=== PATIENT | female | born 1965 | race Two or more races ===

== ENCOUNTER → 2022-02-26 | Emergency (ER) | payer MEDICAID, OTHER ==
[~2022-02-26] VITALS: Ht 160 cm; Wt 68.0 kg
[~2022-02-26] MED LIST: ALPR0.5T PO; LORazepam 0.5 MG TAB PO ONE
[2022-02-26 12:41] VITALS: BP 150/73
[2022-02-26 13:14] LABS: Basophils # (auto) 0.1 10 ^3/uL (0-0.2); Basophils % (auto) 0.8 % (0.0-2.0); Eosinophils # (auto) 0 10 ^3/uL (0-0.8); Eosinophils % (auto) 0.1 % (0.0-7.0); Hematocrit 42.8 % (36.0-46.0); Hemoglobin 14.9 g/dL (12.2-16.2); Lymphocytes # (auto) 1.6 10 ^3/uL (0.4-5.4); Lymphocytes % (auto) 13.6 % (10.0-50.0); Mean Corpuscular Hemoglobin 29.7 pg (28.0-32.0); Mean Corpuscular Hgb Conc. 34.7 g/dL (32.0-36.0); Mean Corpuscular Volume 85.6 fL (80.0-100.0); Monocytes # (auto) 0.4 10 ^3/uL (0-1.3); Monocytes % (auto) 3.7 % (0.0-12.0); Neutrophils # (auto) 9.7 10 ^3/uL (1.6-8.6); Neutrophils % (auto) 81.8 % (37.0-80.0); Nucleated Red Blood Cells % 0.2 %; White Blood Cell 11.8 10^3/uL (4.4-10.8)
[2022-02-26 13:43] LABS: Potassium 3.7 mmol/L (3.5-5.1)
[2022-02-26 13:50] LABS: Albumin 4.3 g/dL (3.4-5.0); BUN/Creatinine Ratio 13.6; Bilirubin, Total 0.4 mg/dL (0.2-1.0); Calcium 9.3 mg/dL (8.5-10.1)
[2022-02-26 15:56] LABS: Urine Bacteria NONE SEEN /hpf (None Seen); Urine Blood TRACE /uL (Negative); Urine Specific Gravity 1.018 (1.001-1.035); Urine WBC 1 /hpf (0 - 5)
== END | disposition home or self-care (01) ==
LOC: ER 12:22 → EDBD 12:22
DX: F41.9 Anxiety disorder, unspecified (principal)
CPT/HCPCS: 36415; 71045; 80053; 81001; 84484; 85025; 93005

== ENCOUNTER 2022-07-01 13:21 | Inpatient (IN) | payer MEDICAID ==
[~2022-07-01] VITALS: Ht 152.4 cm; Wt 50.0 kg
[~2022-07-01 13:21] MED LIST changes: -LORazepam 0.5 MG TAB PO ONE
[2022-07-01 14:31] LABS: Basophils # (auto) 0.1 10 ^3/uL (0-0.2); Basophils % (auto) 0.6 % (0.0-2.0); Eosinophils # (auto) 0 10 ^3/uL (0-0.8); Hematocrit 46.6 % (36.0-46.0); Hemoglobin 15.4 g/dL (12.2-16.2); Lymphocytes # (auto) 1.2 10 ^3/uL (0.4-5.4); Lymphocytes % (auto) 6.4 % (10.0-50.0); Mean Corpuscular Hemoglobin 28.8 pg (28.0-32.0); Mean Corpuscular Hgb Conc. 33.1 g/dL (32.0-36.0); Monocytes # (auto) 0.7 10 ^3/uL (0-1.3); Neutrophils # (auto) 16.3 10 ^3/uL (1.6-8.6); Red Blood Cells 5.36 10^6/uL (4.0-5.20); Red Cell Distribution Width 13.6 % (11.8-14.3); White Blood Cell 18.4 10^3/uL (4.4-10.8)
[2022-07-01 14:44] LABS: Albumin 4.5 g/dL (3.4-5.0); BUN/Creatinine Ratio 16.7; Calcium 9.9 mg/dL (8.5-10.1); Potassium 3.7 mmol/L (3.5-5.1)
[2022-07-01 14:46] LABS: Bilirubin, Total 0.6 mg/dL (0.2-1.0); Total Protein 7.9 g/dL (6.4-8.2)
[2022-07-01] MEDS ORDERED: MORPHINE SULFATE 4 MG/ML SYR/VIAL IV ONE (15:15)
[2022-07-01] MEDS ORDERED: SODIUM CHLORIDE 0.9% 1,000 ML IV ONE ×2 (15:15)
[2022-07-01] MEDS ORDERED: PROCHLORPERAZINE EDISYLATE 5 MG/ML 2ML VIAL IV ONE (15:15)
[2022-07-01] MEDS ORDERED: cefTRIAXone 1GM/50ML D5W 50 ML IV ONE (15:30)
[2022-07-01] MEDS ORDERED: LABETALOL HCL 5 MG/ML 4ML SYRINGE IV ONE (15:30)
[2022-07-01 18:22] LABS: Alcohol, Urine < 3.0 mg/dL (0-10); Amphetamine Screen, Urine NEGATIVE (NEGATIVE); Barbiturate Scree,Urine NEGATIVE (NEGATIVE); Benzodiazephine Screen, Urine NEGATIVE (NEGATIVE); Cannabinoid Screen, Urine POSITIVE (NEGATIVE); Cocaine Screen, Urine NEGATIVE (NEGATIVE); Opiate Scree,Urine NEGATIVE (NEGATIVE); Phencyclidine Screen, Urine NEGATIVE (NEGATIVE)
[2022-07-01 18:32] LABS: Urine Bacteria NONE SEEN /hpf (None Seen); Urine Blood 1+ /uL (Negative); Urine Specific Gravity 1.011 (1.001-1.035); Urine WBC 13 /hpf (0 - 5)
[2022-07-01] MEDS ORDERED: ONDANSETRON HCL 4 MG/2 ML VIAL IV PRN (21:00)
[2022-07-01] MEDS ORDERED: SODIUM CHLORIDE 0.9% 1,000 ML IV SCH (21:00)
[2022-07-01] MEDS ORDERED: MORPHINE SULFATE INJ 2 MG/ml SYRG IV PRN (21:00)
[2022-07-01 23:33] VITALS: BP 127/67
[2022-07-02 00:34] VITALS: BP 127/67
[2022-07-02] MEDS ORDERED: SODIUM CHLORIDE 0.9% 1,000 ML IV SCH (02:45)
[2022-07-02] MEDS ORDERED: LOPERAMIDE HCL 2 MG CAP/TAB PO PRN (02:45)
[2022-07-02] MEDS ORDERED: ALPRAZolam 0.25 MG TAB PO PRN (03:00)
[2022-07-02 05:00] VITALS: BP 118/67
[2022-07-02 05:25] LABS: Basophils # (auto) 0.1 10 ^3/uL (0-0.2); Basophils % (auto) 0.4 % (0.0-2.0); Eosinophils # (auto) 0 10 ^3/uL (0-0.8); Eosinophils % (auto) 0.1 % (0.0-7.0); Hematocrit 38.4 % (36.0-46.0); Hemoglobin 12.9 g/dL (12.2-16.2); Lymphocytes # (auto) 2.2 10 ^3/uL (0.4-5.4); Lymphocytes % (auto) 13.7 % (10.0-50.0); Mean Corpuscular Hemoglobin 28.9 pg (28.0-32.0); Mean Corpuscular Hgb Conc. 33.7 g/dL (32.0-36.0); Mean Corpuscular Volume 85.5 fL (80.0-100.0); Monocytes # (auto) 1.7 10 ^3/uL (0-1.3); Monocytes % (auto) 10.4 % (0.0-12.0); Neutrophils # (auto) 12.1 10 ^3/uL (1.6-8.6); Neutrophils % (auto) 75.4 % (37.0-80.0); Red Blood Cells 4.49 10^6/uL (4.0-5.20); Red Cell Distribution Width 13.9 % (11.8-14.3)
[2022-07-02 05:38] LABS: Potassium 3.7 mmol/L (3.5-5.1)
[2022-07-02 05:44] LABS: Albumin 3.7 g/dL (3.4-5.0); BUN/Creatinine Ratio 23.2; Calcium 8.5 mg/dL (8.5-10.1)
[2022-07-02 05:46] LABS: Bilirubin, Total 0.6 mg/dL (0.2-1.0); Total Protein 6.6 g/dL (6.4-8.2)
[2022-07-02 09:00] VITALS: BP 118/64
[2022-07-02] MEDS ORDERED: cefTRIAXone 1GM/50ML D5W 50 ML IV SCH (09:00)
[2022-07-02] MEDS ORDERED: PANTOPRAZOLE 40 MG TAB PO SCH (10:00)
[2022-07-02 13:00] VITALS: BP 121/64
[2022-07-02 17:00] VITALS: BP 119/70
== END 2022-07-02 18:40 | disposition home or self-care (01) | DRG 249 ==
LOC: ER 13:21 → OVERFLOW 20:58 → WEST WING 23:29
PROVIDERS: ADMIT Nurse Practitioner; ATTEND Student in an Organized Health Care Education/Training Program
DX: K52.9 Noninfective gastroenteritis and colitis, unspecified (principal); E11.9 Type 2 diabetes mellitus without complications; N39.0 Urinary tract infection, site not specified; Z20.822 Contact with and (suspected) exposure to COVID-19; F41.9 Anxiety disorder, unspecified; F12.90 Cannabis use, unspecified, uncomplicated
CPT/HCPCS: 36415; 74176; 80053; 80307; 81001; 83605; 83690; 85025; 87426; 96361; 96365; 96375; G0378; J0696

== ENCOUNTER 2023-07-29 14:34 | Inpatient (IN) | payer MEDICAID ==
[~2023-07-29] VITALS: Ht 160 cm; Wt 58.7 kg
[2023-07-29 15:33] LABS: Basophils # (auto) 0.1 10 ^3/uL (0-0.2); Basophils % (auto) 0.6 % (0.0-2.0); Eosinophils # (auto) 0 10 ^3/uL (0-0.8); Hematocrit 44.2 % (36.0-46.0); Hemoglobin 14.7 g/dL (12.2-16.2); Lymphocytes # (auto) 1.2 10 ^3/uL (0.4-5.4); Lymphocytes % (auto) 7.2 % (10.0-50.0); Mean Corpuscular Hemoglobin 29.4 pg (28.0-32.0); Mean Corpuscular Hgb Conc. 33.4 g/dL (32.0-36.0); Mean Corpuscular Volume 88.2 fL (80.0-100.0); Monocytes # (auto) 0.8 10 ^3/uL (0-1.3); Monocytes % (auto) 5.1 % (0.0-12.0); Neutrophils # (auto) 14.2 10 ^3/uL (1.6-8.6); Neutrophils % (auto) 87.1 % (37.0-80.0); Red Blood Cells 5.01 10^6/uL (4.0-5.20); Red Cell Distribution Width 13.8 % (11.8-14.3); White Blood Cell 16.3 10^3/uL (4.4-10.8)
[2023-07-29 15:57] LABS: Alanine Aminotransferase 24 U/L (7-40); Albumin 5.2 g/dL (3.2-4.8); Alkaline Phosphatase 124 U/L (46-116); Anion Gap 13 (5-15); Aspartate Aminotransferase 23 U/L (13-40); BUN/Creatinine Ratio 14.2 (10.0-20.0); Blood Urea Nitrogen 16 mg/dL (9-23); Calcium 10.2 mg/dL (8.7-10.4); Carbon Dioxide 19 mmol/L (20-30); Chloride 114 mmol/L (98-107); Glucose 224 mg/dL (74-106); Lipase 28 U/L (12-53); Potassium 3.7 mmol/L (3.5-5.1); Sodium 146 mmol/L (136-145)
[2023-07-29 15:58] LABS: Bilirubin, Total 0.6 mg/dL (0.2-1.0); Total Protein 7.7 g/dL (5.7-8.2)
[2023-07-29 16:00] LABS: Lactic Acid w/Reflex 3.2 mmol/L (0.4-2.0)
[2023-07-29] MEDS ORDERED: SODIUM CHLORIDE 0.9% 1,000 ML IV ONE ×3 (16:45→18:30)
[2023-07-29] MEDS ORDERED: PIPERACILLIN-TAZOB 3.375GM 100 ML IV ONE (16:45)
[2023-07-29] MEDS ORDERED: fentaNYL CITRATE 100 MCG/2 ML VL IV ONE ×3 (17:30→19:00)
[2023-07-29] MEDS ORDERED: ONDANSETRON HCL 4 MG/2 ML VIAL IV ONE (17:30)
[2023-07-29 17:34] VITALS: PULSE 84; RESP 18; O2SAT 100
[2023-07-29] MEDS ORDERED: DOCUSATE SOD 100 MG CAP PO PRN (18:30)
[2023-07-29 19:21] LABS: Sodium Urine 128 mmol/L (40-220)
[2023-07-29 19:27] LABS: Urine Bacteria NONE SEEN /hpf (None Seen); Urine Blood 1+ /uL (Negative); Urine Clarity Clear (Clear); Urine Color Colorless (Yellow); Urine Protein, UAD Negative (Negative); Urine Urobilinogen Normal (Negative); Urine WBC 13 /hpf (0 - 5); Urine pH 7.5 (5.0-8.0)
[2023-07-29 19:29] LABS: Amphetamine Screen, Urine Neg (NEGATIVE); Barbiturate Scree,Urine Neg (NEGATIVE); Benzodiazephine Screen, Urine Neg (NEGATIVE); Cocaine Screen, Urine Neg (NEGATIVE)
[2023-07-29 19:30] LABS: Cannabinoid Screen, Urine Pos (NEGATIVE); Creatinine, Urine 29.75 mg/dL (30.0-125.0); Opiate Scree,Urine Neg (NEGATIVE); Phencyclidine Screen, Urine Neg (NEGATIVE)
[2023-07-29] MEDS: SODIUM CHLORIDE 0.9% 1,000 ML IV SCH (19:46)
[2023-07-29 21:07] LABS: Lactic Acid w/Reflex 2.4 mmol/L (0.4-2.0)
[2023-07-29 23:30] VITALS: PULSE 79; RESP 16; O2SAT 96
[2023-07-29] MEDS: DICYCLOMINE HCL 10 MG CAP PO SCH (23:47)
[2023-07-30] VITALS (7 sets, daily range): BP systolic 113–121; BP diastolic 70–73; PULSE 66–79; RESP 15–20; TEMP 98.3–98.5; O2SAT 94–97
[2023-07-30] MEDS: SODIUM CHLORIDE 0.9% 1,000 ML IV SCH ×4 (02:52→18:23)
[2023-07-30 05:55] LABS: Alanine Aminotransferase 17 U/L (7-40); Albumin 4.2 g/dL (3.2-4.8); Alkaline Phosphatase 90 U/L (46-116); Anion Gap 7 (5-15); Aspartate Aminotransferase 22 U/L (13-40); BUN/Creatinine Ratio 11.5 (10.0-20.0); Blood Urea Nitrogen 9 mg/dL (9-23); Calcium 8.2 mg/dL (8.7-10.4); Carbon Dioxide 22 mmol/L (20-30); Chloride 114 mmol/L (98-107); Glucose 102 mg/dL (74-106); Potassium 3.2 mmol/L (3.5-5.1); Sodium 143 mmol/L (136-145)
[2023-07-30] MEDS: DICYCLOMINE HCL 10 MG CAP PO SCH ×4 (05:55→22:05)
[2023-07-30 05:56] LABS: Bilirubin, Total 0.6 mg/dL (0.2-1.0); Total Protein 6.2 g/dL (5.7-8.2)
[2023-07-30 06:01] LABS: Basophils # (auto) 0 10 ^3/uL (0-0.2); Basophils % (auto) 0.1 % (0.0-2.0); Eosinophils # (auto) 0 10 ^3/uL (0-0.8); Hematocrit 36.1 % (36.0-46.0); Lymphocytes # (auto) 2.6 10 ^3/uL (0.4-5.4); Lymphocytes % (auto) 18.3 % (10.0-50.0); Mean Corpuscular Hemoglobin 29.5 pg (28.0-32.0); Mean Corpuscular Hgb Conc. 33.2 g/dL (32.0-36.0); Mean Corpuscular Volume 88.9 fL (80.0-100.0); Monocytes # (auto) 1.6 10 ^3/uL (0-1.3); Monocytes % (auto) 11.4 % (0.0-12.0); Neutrophils # (auto) 9.9 10 ^3/uL (1.6-8.6); Neutrophils % (auto) 70.2 % (37.0-80.0); Nucleated Red Blood Cells % 0.1 %; Red Blood Cells 4.06 10^6/uL (4.0-5.20); Red Cell Distribution Width 13.9 % (11.8-14.3); White Blood Cell 14.1 10^3/uL (4.4-10.8)
[2023-07-30] MEDS ORDERED: PANTOPRAZOLE 40 MG/10 ML VIAL INJ IV SCH (10:00)
[2023-07-30] MEDS: NICOTINE 21MG/24 HR TOPICAL PATCH TD SCH (10:15)
[2023-07-30] MEDS: ONDANSETRON HCL 4 MG/2 ML VIAL IV PRN ×2 (11:24→22:05)
[2023-07-30] MEDS: MORPHINE SULFATE INJ 2 MG/ml SYRG IV PRN ×2 (11:24→22:06)
[2023-07-30] MEDS ORDERED: cefTRIAXone 1GM/50ML D5W 50 ML IV ONE (11:30)
[2023-07-30] MEDS ORDERED: POTASSIUM EFFERVESENT TAB 25 MEQ GT ONE (11:30)
[2023-07-30] MEDS ORDERED: MIRT1TAB40 PO (12:22)
[2023-07-30] MEDS ORDERED: SERT-206 PO (12:22)
[2023-07-30] MEDS ORDERED: PIPERACILLIN-TAZOB 3.375GM 100 ML IV SCH (23:00)
[2023-07-31 05:00] VITALS: BP 126/73; PULSE 64; RESP 18; TEMP 98; O2SAT 97
[2023-07-31 06:41] LABS: Calcium 8.6 mg/dL (8.7-10.4); Chloride 109 mmol/L (98-107); Potassium 3.5 mmol/L (3.5-5.1); Sodium 139 mmol/L (136-145)
[2023-07-31 06:42] LABS: Anion Gap 7 (5-15); Carbon Dioxide 23 mmol/L (20-30)
[2023-07-31] MEDS: DICYCLOMINE HCL 10 MG CAP PO SCH ×2 (06:44→12:09)
[2023-07-31 06:46] LABS: Basophils # (auto) 0 10 ^3/uL (0-0.2); Basophils % (auto) 0.5 % (0.0-2.0); Eosinophils # (auto) 0.1 10 ^3/uL (0-0.8); Eosinophils % (auto) 1.2 % (0.0-7.0); Hematocrit 36.5 % (36.0-46.0); Hemoglobin 12.9 g/dL (12.2-16.2); Lymphocytes # (auto) 2.9 10 ^3/uL (0.4-5.4); Lymphocytes % (auto) 30.4 % (10.0-50.0); Mean Corpuscular Hemoglobin 31.1 pg (28.0-32.0); Mean Corpuscular Hgb Conc. 35.2 g/dL (32.0-36.0); Mean Corpuscular Volume 88.4 fL (80.0-100.0); Monocytes # (auto) 0.8 10 ^3/uL (0-1.3); Monocytes % (auto) 8.3 % (0.0-12.0); Neutrophils # (auto) 5.7 10 ^3/uL (1.6-8.6); Neutrophils % (auto) 59.6 % (37.0-80.0); Nucleated Red Blood Cells % 0.1 %; Red Blood Cells 4.14 10^6/uL (4.0-5.20); Red Cell Distribution Width 13.8 % (11.8-14.3); White Blood Cell 9.6 10^3/uL (4.4-10.8)
[2023-07-31 06:47] LABS: BUN/Creatinine Ratio 9.2 (10.0-20.0); Blood Urea Nitrogen 7 mg/dL (9-23); Glucose 87 mg/dL (74-106)
[2023-07-31] MEDS: MORPHINE SULFATE INJ 2 MG/ml SYRG IV PRN (06:49)
[2023-07-31 08:00] VITALS: BP 125/66; PULSE 57; RESP 17; TEMP 98; O2SAT 96
[2023-07-31] MEDS ORDERED: cefTRIAXone 1GM/50ML D5W 50 ML IV SCH (09:00)
[2023-07-31] MEDS ORDERED: PANTOPRAZOLE 40 MG TAB PO SCH (10:00)
[2023-07-31] MEDS: NICOTINE 21MG/24 HR TOPICAL PATCH TD SCH (10:20)
[2023-07-31] MEDS ORDERED: NITR-52 PO (10:41)
[2023-07-31 13:53] VITALS: BP 125/66; PULSE 57; RESP 17; TEMP 98; O2SAT 96
== END 2023-07-31 15:35 | disposition home or self-care (01) | DRG 720 ==
LOC: ER 14:34 → OVERFLOW 18:41 → CENTRAL 07-30 11:31
PROVIDERS: ADMIT Internal Medicine Pulmonary Disease; ATTEND Student in an Organized Health Care Education/Training Program
DX: A41.9 Sepsis, unspecified organism (principal); E87.21 Acute metabolic acidosis; E87.0 Hyperosmolality and hypernatremia; E86.0 Dehydration; F12.10 Cannabis abuse, uncomplicated; K52.9 Noninfective gastroenteritis and colitis, unspecified; N39.0 Urinary tract infection, site not specified; E87.6 Hypokalemia; F41.9 Anxiety disorder, unspecified; R73.9 Hyperglycemia, unspecified; K57.30 Diverticulosis of large intestine without perforation or abscess without bleeding; F17.200 Nicotine dependence, unspecified, uncomplicated; Z90.710 Acquired absence of both cervix and uterus
CPT/HCPCS: 36415; 74176; 74177; 80048; 80053; 80307; 81001; 82570; 83036; 83605; 83690; 83735; 83930; 84300; 84484; 85025; 87040; 87086; 96365; 96375; C9113; G0378; J0696; J2405; J2543

== ENCOUNTER 2024-02-01 13:20 | Inpatient (IN) | payer MEDICAID ==
[~2024-02-01] VITALS: Ht 152.4 cm; Wt 55.3 kg
[~2024-02-01 13:20] MED LIST changes: -ALPR0.5T PO; +MIRT1TAB40 PO; +NITR-52 PO; +SERT-206 PO
[2024-02-01 13:52] VITALS: PULSE 87; RESP 50; O2SAT 96
[2024-02-01 14:31] LABS: Basophils # (auto) 0.1 10 ^3/uL (0-0.2); Basophils % (auto) 0.7 % (0.0-2.0); Eosinophils # (auto) 0 10 ^3/uL (0-0.8); Eosinophils % (auto) 0.1 % (0.0-7.0); Hematocrit 45.5 % (36.0-46.0); Hemoglobin 15.2 g/dL (12.2-16.2); Lymphocytes # (auto) 1.5 10 ^3/uL (0.4-5.4); Lymphocytes % (auto) 9.1 % (10.0-50.0); Mean Corpuscular Hemoglobin 29.5 pg (28.0-32.0); Mean Corpuscular Hgb Conc. 33.4 g/dL (32.0-36.0); Mean Corpuscular Volume 88.2 fL (80.0-100.0); Monocytes # (auto) 0.5 10 ^3/uL (0-1.3); Monocytes % (auto) 2.8 % (0.0-12.0); Neutrophils # (auto) 14.8 10 ^3/uL (1.6-8.6); Neutrophils % (auto) 87.3 % (37.0-80.0); Nucleated Red Blood Cells % 0.1 %; Red Blood Cells 5.15 10^6/uL (4.0-5.20); Red Cell Distribution Width 14.3 % (11.8-14.3); White Blood Cell 16.9 10^3/uL (4.4-10.8)
[2024-02-01] MEDS: MORPHINE SULFATE 4 MG/ML SYR/VIAL IV ONE ×2 (14:31→15:52)
[2024-02-01] MEDS: ONDANSETRON HCL 4 MG/2 ML VIAL IV ONE (14:31)
[2024-02-01 14:35] LABS: Chloride 116 mmol/L (98-107); Potassium 4.3 mmol/L (3.5-5.1); Sodium 144 mmol/L (136-145)
[2024-02-01 14:36] LABS: Anion Gap 9 (5-15); Calcium 11.6 mg/dL (8.7-10.4); Carbon Dioxide 19 mmol/L (20-30)
[2024-02-01] MEDS: SODIUM CHLORIDE 0.9% 1,000 ML IVB ONE (14:36)
[2024-02-01 14:41] LABS: BUN/Creatinine Ratio 16.8 (10.0-20.0); Blood Urea Nitrogen 19 mg/dL (9-23); Glucose 252 mg/dL (74-106)
[2024-02-01 14:42] LABS: Lipase 35 U/L (12-53)
[2024-02-01 15:42] LABS: Urine Bacteria None Seen /hpf (None Seen)
[2024-02-01 15:51] LABS: Urine Blood 1+ /uL (Negative); Urine Clarity Clear (Clear); Urine Hyaline Cast FEW /lpf (0 - 2); Urine Protein, UAD Negative (Negative); Urine Specific Gravity 1.012 (1.001-1.035); Urine Urobilinogen Normal (Negative); Urine WBC 1 /hpf (0 - 5)
[2024-02-01] MEDS ORDERED: ACETAMINOPHEN 325 MG TAB PO PRN ×2 (16:00)
[2024-02-01] MEDS ORDERED: MORPHINE SULFATE INJ 2 MG/ml SYRG IV PRN (16:00)
[2024-02-01 16:05] LABS: Urine Color STRAW (Yellow)
[2024-02-01] MEDS ORDERED: hydrALAZINE HCL 20 MG/ML VL IV PRN (16:15)
[2024-02-01] MEDS: NICOTINE 7MG/24HR TOPICAL PATCH TD ONE (16:32)
[2024-02-01 16:33] LABS: Amphetamine Screen, Urine Neg (NEGATIVE); Barbiturate Scree,Urine Neg (NEGATIVE); Benzodiazephine Screen, Urine Neg (NEGATIVE); Cocaine Screen, Urine Neg (NEGATIVE)
[2024-02-01 16:34] LABS: Cannabinoid Screen, Urine Pos (NEGATIVE); Opiate Scree,Urine Pos (NEGATIVE); Phencyclidine Screen, Urine Neg (NEGATIVE)
[2024-02-01] MEDS: PANTOPRAZOLE 40 MG/10 ML VIAL INJ IV ONE (16:49)
[2024-02-01] MEDS: ONDANSETRON HCL 4 MG/2 ML VIAL IV PRN (16:49)
[2024-02-01] MEDS: SODIUM CHLORIDE 0.9% 1,000 ML IV SCH (16:50)
[2024-02-01] MEDS: cefTRIAXone 1GM/50ML D5W 50 ML IV ONE (17:04)
[2024-02-01] MEDS: metroNIDAZOLE 500MG/100ML 100 ML IV ONE (17:47)
[2024-02-01] MEDS: VANCOMYCIN HCL 125 MG CAP PO SCH (18:00)
[2024-02-01 21:05] VITALS: O2SAT 97
[2024-02-01] MEDS: metroNIDAZOLE 500MG/100ML 100 ML IV SCH (23:32)
[2024-02-01] MEDS: MIRTAZAPINE 30 MG TAB PO SCH (23:41)
[2024-02-01] MEDS: HYDROcodone-ACET 5/325MG TAB PO PRN (23:42)
[2024-02-01 23:54] VITALS: BP 106/61; PULSE 88; RESP 20; TEMP 98.6; O2SAT 95
[2024-02-02] VITALS (8 sets, daily range): BP systolic 95–143; BP diastolic 52–70; PULSE 57–88; RESP 16–20; TEMP 36.8; O2SAT 0–97
[2024-02-02 05:43] LABS: Basophils # (auto) 0 10 ^3/uL (0-0.2); Basophils % (auto) 0.2 % (0.0-2.0); Eosinophils # (auto) 0 10 ^3/uL (0-0.8); Eosinophils % (auto) 0.1 % (0.0-7.0); Hematocrit 40.1 % (36.0-46.0); Hemoglobin 13.1 g/dL (12.2-16.2); Lymphocytes % (auto) 18.3 % (10.0-50.0); Mean Corpuscular Hgb Conc. 32.6 g/dL (32.0-36.0); Mean Corpuscular Volume 88.8 fL (80.0-100.0); Monocytes # (auto) 1.7 10 ^3/uL (0-1.3); Monocytes % (auto) 10.4 % (0.0-12.0); Neutrophils # (auto) 11.7 10 ^3/uL (1.6-8.6); Nucleated Red Blood Cells % 0.1 %; Red Blood Cells 4.51 10^6/uL (4.0-5.20); Red Cell Distribution Width 14.5 % (11.8-14.3); White Blood Cell 16.5 10^3/uL (4.4-10.8)
[2024-02-02 05:49] LABS: Chloride 113 mmol/L (98-107); Potassium 3.5 mmol/L (3.5-5.1); Sodium 143 mmol/L (136-145)
[2024-02-02 05:50] LABS: Anion Gap 4 (5-15); Carbon Dioxide 26 mmol/L (20-30)
[2024-02-02 05:51] LABS: Calcium 9.3 mg/dL (8.7-10.4)
[2024-02-02 05:55] LABS: BUN/Creatinine Ratio 15.6 (10.0-20.0); Blood Urea Nitrogen 14 mg/dL (9-23); Glucose 103 mg/dL (74-106)
[2024-02-02] MEDS ORDERED: cefTRIAXone 1GM/50ML D5W 50 ML IV SCH (09:00)
[2024-02-02] MEDS: NICOTINE 7MG/24HR TOPICAL PATCH TD SCH (10:00)
[2024-02-02] MEDS: SERTRALINE HCL 50 MG TAB PO SCH (10:52)
[2024-02-02] MEDS: PANTOPRAZOLE 40 MG/10 ML VIAL INJ IV SCH (10:52)
[2024-02-02] MEDS: VANCOMYCIN HCL 125 MG CAP PO SCH (12:00)
[2024-02-03] VITALS (8 sets, daily range): BP systolic 103–134; BP diastolic 70–78; PULSE 64–78; RESP 16–20; TEMP 36.8; O2SAT 0–97
[2024-02-03 06:06] LABS: Basophils # (auto) 0 10 ^3/uL (0-0.2); Basophils % (auto) 0.5 % (0.0-2.0); Eosinophils # (auto) 0.1 10 ^3/uL (0-0.8); Eosinophils % (auto) 1.3 % (0.0-7.0); Hematocrit 38.5 % (36.0-46.0); Hemoglobin 12.8 g/dL (12.2-16.2); Lymphocytes # (auto) 2.4 10 ^3/uL (0.4-5.4); Lymphocytes % (auto) 26.9 % (10.0-50.0); Mean Corpuscular Hemoglobin 29.4 pg (28.0-32.0); Mean Corpuscular Hgb Conc. 33.3 g/dL (32.0-36.0); Mean Corpuscular Volume 88.3 fL (80.0-100.0); Monocytes # (auto) 0.7 10 ^3/uL (0-1.3); Monocytes % (auto) 7.9 % (0.0-12.0); Neutrophils # (auto) 5.6 10 ^3/uL (1.6-8.6); Neutrophils % (auto) 63.4 % (37.0-80.0); Nucleated Red Blood Cells % 0.1 %; Red Blood Cells 4.37 10^6/uL (4.0-5.20); Red Cell Distribution Width 14.4 % (11.8-14.3); White Blood Cell 8.8 10^3/uL (4.4-10.8)
[2024-02-03 06:27] LABS: Alanine Aminotransferase 22 U/L (7-40); Alkaline Phosphatase 82 U/L (46-116); Anion Gap 6 (5-15); Aspartate Aminotransferase 20 U/L (13-40); BUN/Creatinine Ratio 7.9 (10.0-20.0); Blood Urea Nitrogen 6 mg/dL (9-23); Carbon Dioxide 24 mmol/L (20-30); Chloride 114 mmol/L (98-107); Glucose 87 mg/dL (74-106); Potassium 3.3 mmol/L (3.5-5.1); Sodium 144 mmol/L (136-145)
[2024-02-03 06:28] LABS: Albumin 4.1 g/dL (3.2-4.8); Bilirubin, Total 0.5 mg/dL (0.2-1.0); Total Protein 6.3 g/dL (5.7-8.2)
[2024-02-03] MEDS: POTASSIUM CHL 20 Meq TABLET PO ONE (07:30)
[2024-02-04 00:48] VITALS: BP 123/75; PULSE 74; RESP 16; TEMP 98.3; O2SAT 96
[2024-02-04 04:54] VITALS: BP 123/84; PULSE 73; RESP 16; TEMP 97.2; O2SAT 100
[2024-02-04 06:35] LABS: Alanine Aminotransferase 19 U/L (7-40); Albumin 3.9 g/dL (3.2-4.8); Alkaline Phosphatase 81 U/L (46-116); Anion Gap 4 (5-15); Aspartate Aminotransferase 16 U/L (13-40); BUN/Creatinine Ratio 10.8 (10.0-20.0); Blood Urea Nitrogen 8 mg/dL (9-23); Calcium 9.2 mg/dL (8.7-10.4); Carbon Dioxide 25 mmol/L (20-30); Chloride 113 mmol/L (98-107); Glucose 99 mg/dL (74-106); Potassium 3.5 mmol/L (3.5-5.1); Sodium 142 mmol/L (136-145)
[2024-02-04 06:36] LABS: Basophils # (auto) 0 10 ^3/uL (0-0.2); Basophils % (auto) 0.5 % (0.0-2.0); Bilirubin, Total 0.5 mg/dL (0.2-1.0); Eosinophils # (auto) 0.2 10 ^3/uL (0-0.8); Eosinophils % (auto) 2.4 % (0.0-7.0); Hematocrit 39.3 % (36.0-46.0); Hemoglobin 13.4 g/dL (12.2-16.2); Lymphocytes # (auto) 2.7 10 ^3/uL (0.4-5.4); Mean Corpuscular Hemoglobin 30.1 pg (28.0-32.0); Mean Corpuscular Hgb Conc. 34.1 g/dL (32.0-36.0); Mean Corpuscular Volume 88.2 fL (80.0-100.0); Monocytes # (auto) 0.9 10 ^3/uL (0-1.3); Monocytes % (auto) 9.9 % (0.0-12.0); Neutrophils % (auto) 56.2 % (37.0-80.0); Nucleated Red Blood Cells % 0.1 %; Red Blood Cells 4.46 10^6/uL (4.0-5.20); Total Protein 6.2 g/dL (5.7-8.2); White Blood Cell 8.9 10^3/uL (4.4-10.8)
[2024-02-04 07:45] VITALS: PULSE 65; RESP 16; O2SAT 94
[2024-02-04 08:50] VITALS: BP 137/76; PULSE 60; RESP 18; TEMP 98; O2SAT 95
[2024-02-04 12:15] VITALS: BP 132/77; PULSE 63; RESP 18; TEMP 98.2; O2SAT 95
[2024-02-04] MEDS ORDERED: VANCOMYCIN HCL 125 MG CAP PO ONE (12:25)
[2024-02-04] MEDS ORDERED: VANC125C3 PO (13:07)
[2024-02-04 13:25] VITALS: TEMP 36.8
== END 2024-02-04 14:09 | disposition home or self-care (01) | DRG 248 ==
LOC: ER 13:20 → OVERFLOW 15:56 → CENTRAL 15:56
PROVIDERS: ADMIT Internal Medicine; ATTEND Emergency Medicine
DX: A04.72 Enterocolitis due to Clostridium difficile, not specified as recurrent (principal); N17.0 Acute kidney failure with tubular necrosis; K57.30 Diverticulosis of large intestine without perforation or abscess without bleeding; E86.0 Dehydration; F32.A Depression, unspecified; F41.9 Anxiety disorder, unspecified; F12.90 Cannabis use, unspecified, uncomplicated; I10 Essential (primary) hypertension; F17.210 Nicotine dependence, cigarettes, uncomplicated; Z79.899 Other long term (current) drug therapy; Z90.710 Acquired absence of both cervix and uterus
CPT/HCPCS: 36415; 74176; 80048; 80053; 80307; 81001; 83690; 83735; 85025; 87040; 87086; 87493; 93005; 96365; 96375; C9113; G0378; J2405; J3490

== ENCOUNTER 2024-03-29 12:33 | Inpatient (IN) | payer MEDICAID ==
[~2024-03-29] VITALS: Ht 152.4 cm; Wt 54.7 kg
[~2024-03-29 12:33] MED LIST changes: -NITR-52 PO; +VANC125C3 PO
[2024-03-29] MEDS: SODIUM CHLORIDE 0.9% 500 ML IV ONE (13:25)
[2024-03-29] MEDS: ONDANSETRON ODT 4 MG TAB PO ONE (13:29)
[2024-03-29 13:32] LABS: Basophils # (auto) 0.1 10 ^3/uL (0-0.2); Basophils % (auto) 0.7 % (0.0-2.0); Eosinophils # (auto) 0 10 ^3/uL (0-0.8); Eosinophils % (auto) 0.1 % (0.0-7.0); Hematocrit 45.2 % (36.0-46.0); Hemoglobin 15.4 g/dL (12.2-16.2); Lymphocytes # (auto) 1.6 10 ^3/uL (0.4-5.4); Lymphocytes % (auto) 8.7 % (10.0-50.0); Mean Corpuscular Hemoglobin 29.9 pg (28.0-32.0); Mean Corpuscular Volume 87.9 fL (80.0-100.0); Monocytes # (auto) 0.6 10 ^3/uL (0-1.3); Monocytes % (auto) 3.1 % (0.0-12.0); Neutrophils # (auto) 16.5 10 ^3/uL (1.6-8.6); Neutrophils % (auto) 87.4 % (37.0-80.0); Nucleated Red Blood Cells % 0.1 %; Red Blood Cells 5.14 10^6/uL (4.0-5.20); Red Cell Distribution Width 14.3 % (11.8-14.3); White Blood Cell 18.9 10^3/uL (4.4-10.8)
[2024-03-29] MEDS: HYDROcodone-ACET 5/325MG TAB PO ONE (13:45)
[2024-03-29 13:56] LABS: Alanine Aminotransferase 30 U/L (7-40); Albumin 5.3 g/dL (3.2-4.8); Alkaline Phosphatase 108 U/L (46-116); Anion Gap 14 (5-15); Aspartate Aminotransferase 28 U/L (13-40); BUN/Creatinine Ratio 16.7 (10.0-20.0); Blood Urea Nitrogen 17 mg/dL (9-23); Calcium 10.7 mg/dL (8.7-10.4); Carbon Dioxide 16 mmol/L (20-30); Chloride 115 mmol/L (98-107); Glucose 242 mg/dL (74-106); Potassium 4.1 mmol/L (3.5-5.1); Sodium 145 mmol/L (136-145)
[2024-03-29 13:57] LABS: Bilirubin, Total 0.6 mg/dL (0.2-1.0); Total Protein 7.7 g/dL (5.7-8.2)
[2024-03-29 14:18] LABS: Urine Bacteria FEW /hpf (None Seen); Urine Blood 2+ /uL (Negative); Urine Clarity Clear (Clear); Urine Color Yellow (Yellow); Urine Hyaline Cast FEW /lpf (0 - 2); Urine Mucus FEW (None Seen); Urine Protein, UAD TRACE (Negative); Urine Specific Gravity 1.024 (1.001-1.035); Urine Urobilinogen Normal (Negative); Urine WBC 3 /hpf (0 - 5); Urine pH 5.5 (5.0-9.0)
[2024-03-29 14:27] LABS: Amphetamine Screen, Urine Neg (NEGATIVE); Barbiturate Scree,Urine Neg (NEGATIVE); Benzodiazephine Screen, Urine Neg (NEGATIVE); Cocaine Screen, Urine Neg (NEGATIVE); Opiate Scree,Urine Neg (NEGATIVE); Phencyclidine Screen, Urine Neg (NEGATIVE)
[2024-03-29 14:28] LABS: Cannabinoid Screen, Urine Pos (NEGATIVE)
[2024-03-29] MEDS: KETOROLAC TROMETH 30 MG/ML 1ML VIAL IV ONE (14:33)
[2024-03-29 15:06] LABS: Lactic Acid w/Reflex 3.9 mmol/L (0.4-2.0)
[2024-03-29] MEDS ORDERED: VANCOMYCIN PER PHARMACY 0 MG IV SCH (15:45)
[2024-03-29] MEDS ORDERED: DOCUSATE SOD 100 MG CAP PO PRN (15:45)
[2024-03-29] MEDS ORDERED: ACETAMINOPHEN 325 MG TAB PO PRN (15:45)
[2024-03-29] MEDS ORDERED: hydrALAZINE HCL 20 MG/ML VL IV PRN (16:00)
[2024-03-29] MEDS ORDERED: NITROGLYCERIN 0.4 MG SL TAB SL PRN (16:15)
[2024-03-29] MEDS ORDERED: DEXTROSE (50%) 50ML SYRG IV PRN (16:15)
[2024-03-29] MEDS: cefTRIAXone 1GM/50ML D5W 50 ML IV ONE (17:00)
[2024-03-29] MEDS ORDERED: InsuLIN REG 1unit/0.01ml Soln (100units/ml) SC SCH (17:00)
[2024-03-29] MEDS: ONDANSETRON HCL 4 MG/2 ML VIAL IV PRN (17:03)
[2024-03-29] MEDS: MORPHINE SULFATE INJ 2 MG/ml SYRG IV PRN ×2 (17:04→21:24)
[2024-03-29] MEDS: ACETAMINOPHEN 325 MG TAB PO ONE (17:05)
[2024-03-29] MEDS: ACCU-CHEK COMFORT CURVE STRIP VI SCH (17:05)
[2024-03-29] MEDS: VANCOMYCIN 1GM/200ML 200 ML IV ONE (17:27)
[2024-03-29] MEDS: SODIUM CHLOR 0.9% PF (SALINE LOCK) 10ML VIAL/SYR IV SCH (22:00)
[2024-03-30] MEDS: HYDROcodone-ACET 5/325MG TAB PO PRN (02:39)
[2024-03-30 04:20] VITALS: PULSE 72; RESP 19; O2SAT 95
[2024-03-30] MEDS: VANCOMYCIN 750mg/150ml 150 ML IV SCH (07:57)
[2024-03-30 08:16] VITALS: PULSE 76; RESP 16; O2SAT 97
[2024-03-30] MEDS: cefTRIAXone 1GM/50ML D5W 50 ML IV SCH (10:24)
[2024-03-30] MEDS ORDERED: metroNIDAZOLE 500MG/100ML 100 ML IV ONE (14:15)
[2024-03-30] MEDS: metroNIDAZOLE 500MG/100ML 100 ML IV SCH (14:30)
[2024-03-30 15:07] LABS: Basophils # (auto) 0.1 10 ^3/uL (0-0.2); Basophils % (auto) 0.7 % (0.0-2.0); Eosinophils # (auto) 0.1 10 ^3/uL (0-0.8); Eosinophils % (auto) 0.6 % (0.0-7.0); Hematocrit 38.9 % (36.0-46.0); Hemoglobin 13.2 g/dL (12.2-16.2); Lymphocytes # (auto) 2.8 10 ^3/uL (0.4-5.4); Lymphocytes % (auto) 17.3 % (10.0-50.0); Mean Corpuscular Hgb Conc. 33.9 g/dL (32.0-36.0); Mean Corpuscular Volume 88.5 fL (80.0-100.0); Monocytes # (auto) 1.4 10 ^3/uL (0-1.3); Neutrophils # (auto) 11.5 10 ^3/uL (1.6-8.6); Neutrophils % (auto) 72.4 % (37.0-80.0); Nucleated Red Blood Cells % 0.1 %; Red Blood Cells 4.39 10^6/uL (4.0-5.20); Red Cell Distribution Width 14.1 % (11.8-14.3); White Blood Cell 15.9 10^3/uL (4.4-10.8)
[2024-03-30] MEDS: SERTRALINE HCL 50 MG TAB PO ONE (15:16)
[2024-03-30 15:23] LABS: Alanine Aminotransferase 25 U/L (7-40); Albumin 4.5 g/dL (3.2-4.8); Alkaline Phosphatase 86 U/L (46-116); Anion Gap 7 (5-15); Aspartate Aminotransferase 28 U/L (13-40); BUN/Creatinine Ratio 18.7 (10.0-20.0); Blood Urea Nitrogen 14 mg/dL (9-23); Carbon Dioxide 22 mmol/L (20-30); Chloride 111 mmol/L (98-107); Glucose 92 mg/dL (74-106); Potassium 3.5 mmol/L (3.5-5.1); Sodium 140 mmol/L (136-145)
[2024-03-30 15:24] LABS: Bilirubin, Total 0.6 mg/dL (0.2-1.0); Total Protein 6.4 g/dL (5.7-8.2)
[2024-03-30] MEDS: PANTOPRAZOLE 40 MG/10 ML VIAL INJ IV ONE (16:56)
[2024-03-30] MEDS: SODIUM CHLORIDE 0.9% 1,000 ML IV SCH (16:56)
[2024-03-30 19:25] VITALS: PULSE 71; RESP 13; O2SAT 95
[2024-03-30] MEDS: NICOTINE 21MG/24 HR TOPICAL PATCH TD ONE (20:45)
[2024-03-30] MEDS: MIRTAZAPINE 30 MG TAB PO SCH (22:00)
[2024-03-30] MEDS: metroNIDAZOLE 500 MG TAB PO SCH (22:05)
[2024-03-31 08:00] VITALS: PULSE 65; RESP 16; O2SAT 91
[2024-03-31 10:00] VITALS: TEMP 98.2
[2024-03-31] MEDS ORDERED: PANTOPRAZOLE 40 MG/10 ML VIAL INJ IV SCH (10:00)
[2024-03-31] MEDS: PANTOPRAZOLE 40 MG TAB PO ONE (10:57)
[2024-03-31] MEDS: SERTRALINE HCL 50 MG TAB PO SCH (10:57)
[2024-03-31] MEDS: NICOTINE 21MG/24 HR TOPICAL PATCH TD SCH (10:58)
[2024-03-31 11:06] LABS: Basophils # (auto) 0 10 ^3/uL (0-0.2); Basophils % (auto) 0.4 % (0.0-2.0); Chloride 109 mmol/L (98-107); Eosinophils # (auto) 0.1 10 ^3/uL (0-0.8); Eosinophils % (auto) 1.1 % (0.0-7.0); Hemoglobin 13.9 g/dL (12.2-16.2); Lymphocytes % (auto) 17.5 % (10.0-50.0); Mean Corpuscular Hemoglobin 30.2 pg (28.0-32.0); Mean Corpuscular Hgb Conc. 33.9 g/dL (32.0-36.0); Mean Corpuscular Volume 89.2 fL (80.0-100.0); Monocytes # (auto) 0.9 10 ^3/uL (0-1.3); Monocytes % (auto) 7.7 % (0.0-12.0); Neutrophils # (auto) 8.5 10 ^3/uL (1.6-8.6); Neutrophils % (auto) 73.3 % (37.0-80.0); Potassium 3.5 mmol/L (3.5-5.1); Red Blood Cells 4.59 10^6/uL (4.0-5.20); Red Cell Distribution Width 13.9 % (11.8-14.3); Sodium 140 mmol/L (136-145); White Blood Cell 11.6 10^3/uL (4.4-10.8)
[2024-03-31 11:07] LABS: Anion Gap 8 (5-15); Carbon Dioxide 23 mmol/L (20-30)
[2024-03-31 11:08] LABS: Calcium 9.5 mg/dL (8.7-10.4)
[2024-03-31 11:12] LABS: BUN/Creatinine Ratio 16.9 (10.0-20.0); Blood Urea Nitrogen 12 mg/dL (9-23); Glucose 119 mg/dL (74-106)
[2024-03-31 11:57] LABS: Lipase 63 U/L (12-53)
[2024-03-31 16:00] VITALS: BP 132/75; PULSE 69; RESP 16; O2SAT 95
== END 2024-03-31 17:16 | disposition home or self-care (01) | DRG 249 ==
LOC: ER 12:33 → TELE 16:09
PROVIDERS: ADMIT Internal Medicine; ATTEND Emergency Medicine
DX: R11.15 Cyclical vomiting syndrome unrelated to migraine (principal); R65.10 Systemic inflammatory response syndrome (SIRS) of non-infectious origin without acute organ dysfunction; D35.02 Benign neoplasm of left adrenal gland; F17.210 Nicotine dependence, cigarettes, uncomplicated; F41.9 Anxiety disorder, unspecified; I16.0 Hypertensive urgency; R73.9 Hyperglycemia, unspecified; F32.A Depression, unspecified; K57.30 Diverticulosis of large intestine without perforation or abscess without bleeding; K42.9 Umbilical hernia without obstruction or gangrene; Z90.710 Acquired absence of both cervix and uterus
CPT/HCPCS: 36415; 71045; 74176; 80048; 80053; 80307; 81001; 82271; 82962; 83036; 83605; 83615; 83690; 84484; 85025; 87040; 87086; 93005; G0378; J1815; J1885; J2405; J2470; Q0162

== ENCOUNTER 2024-08-17 10:23 | Inpatient (IN) | payer MEDICAID ==
[~2024-08-17] VITALS: Ht 152.4 cm; Wt 58.7 kg
--- NOTE | 2024-08-17 11:12 | ED.PDOC ---
GI ASSESSMENT HPI Comments 58-year-old female with past medical history of diverticulosis, anxiety and depression presented with chief complaint of nausea vomiting and diarrhea. Patient started having persistent vomiting since 05/14 in the morning, around 20 episodes, did not contain any blood associated with left upper quadrant abdominal pain. She also mentioned associated diarrhea, around 10 episodes, did not does not contain any blood, starting in the similar time, not radiating to any other site. She denied any other complaints of chest pain, shortness of breath, dizziness, headache, generalized weakness, Past medical history diverticulosis, anxiety and depression Past surgical history Hysterectomy Family history Patient denied any significant family history Social history Patient is active smoker, denied alcohol, consumes marijuana Medication history Zoloft Allergic history No known allergies Review of systems As described in the HPI Examination General Appearance: Alert, Oriented X3, Cooperative, No acute distress HEENT: EOMI Respiratory: Clear to auscultation, Normal air movement Cardiovascular: Regular rate, Normal S1, Normal S2 Abdominal: Normal bowel sounds Extremities: No cyanosis, No edema, Normal pulses, No tenderness/swelling Skin: No rashes, No breakdown Neuro: Normal speech and tone Chief Complaint: Abdominal Pain Time Seen by MD: 10:25 Primary Care Provider: NA Allergies: Coded Allergies: NO KNOWN ALLERGIES (Unverified , 07/01/22) Home Meds Active Scripts Vancomycin HCl (Vancomycin HCl) 125 Mg Cap, 125 MG PO QID for 7 Days, #28 CAP Prov:JB RUBIN RESIDENT 02/04/24 Reported Medications Mirtazapine (Mirtazapine Oral Disintegrating Tablet) 45 Mg Tab, 1 TAB PO 07/30/23 Sertraline Hcl (Sertraline Hcl) 50 Mg Tab, 1 TAB PO DAILY 07/30/23 GI differential Dx Differential Diagnosis: Appendicitis, Bowel Obstruction, Cholangitis, Cholecystitis, Constipation, Diverticular disease, Esophagitis, Gastritis/PUD, Gastroenteritis, Hepatitis, Ischemic Bowel, Pancreatitis, UTI, Electrolyte Imbalance, Food Poisoning, Hypovolemia, Ischemic Bowel, Kidney Stone X-Ray, Labs, Meds, VS Vital Signs Date Time Temp Pulse Resp B/P (MAP) Pulse Ox O2 Delivery O2 Flow Rate FiO2 08/17/24 12:43 97.7 90 18 156/75 (102) 96 97.7 08/17/24 12:42 18 98 Room Air* 0 21 08/17/24 10:55 97.6 110 20 148/96 (113) 97 08/17/24 10:52 100 Lab Test 08/17/24 12:29 08/17/24 11:16 Range/Units Troponin I High Sensitivity < 3 L < 3 L </=34 ng/L White Blood Count 13.4 H 4.4-10.8 10^3/uL Red Blood Count 5.00 4.0-5.20 10^6/uL Hemoglobin 14.9 12.2-16.2 g/dL Hematocrit 44.0 36.0-46.0 % Mean Corpuscular Volume 88.0 80.0-100.0 fL Mean Corpuscular Hemoglobin 29.7 28.0-32.0 pg Mean Corpuscular Hemoglobin Concent 33.8 32.0-36.0 g/dL Red Cell Distribution Width 13.9 11.8-14.3 % Platelet Count 375 140-450 10^3/uL Mean Platelet Volume 7.6 6.9-10.8 fL Neutrophils (%) (Auto) 78.0 37.0-80.0 % Lymphocytes (%) (Auto) 16.5 10.0-50.0 % Monocytes (%) (Auto) 4.8 0.0-12.0 % Eosinophils (%) (Auto) 0.4 0.0-7.0 % Basophils (%) (Auto) 0.3 0.0-2.0 % Neutrophils # (Auto) 10.5 H 1.6-8.6 10 ^3/uL Lymphocytes # (Auto) 2.2 0.4-5.4 10 ^3/uL Monocytes # (Auto) 0.6 0-1.3 10 ^3/uL Eosinophils # (Auto) 0.1 0-0.8 10 ^3/uL Basophils # (Auto) 0 0-0.2 10 ^3/uL Nucleated Red Blood Cells 0.1 % Sodium Level 143 136-145 mmol/L Potassium Level 3.5 3.5-5.1 mmol/L Chloride Level 109 H 98-107 mmol/L Carbon Dioxide Level 20 20-31 mmol/L Anion Gap 14 5-15 Blood Urea Nitrogen 15 9-23 mg/dL Creatinine 1.02 0.550-1.02 mg/dL Glomerular Filtration Rate Calc 63 >90 mL/min BUN/Creatinine Ratio 14.7 10.0-20.0 Serum Glucose 176 H 74-106 mg/dL Calcium Level 10.5 H 8.7-10.4 mg/dL Total Bilirubin 0.6 0.2-1.0 mg/dL Aspartate Amino Transferase (AST) 21 13-40 U/L Alanine Aminotransferase (ALT) 13 7-40 U/L Alkaline Phosphatase 110 46-116 U/L Total Protein 7.8 5.7-8.2 g/dL Albumin 5.1 H 3.2-4.8 g/dL Lipase 52 12-53 U/L Current Medications Medications (Trade) Dose Ordered Sig/Adina Route Start Time Stop Time Status Last Admin Ondansetron HCl (Zofran) 4 mg ONCE ONCE IV 08/17/24 11:00 08/17/24 11:01 DC 08/17/24 12:39 Pantoprazole Sodium (Protonix) 40 mg ONCE ONCE IV 08/17/24 11:00 08/17/24 11:01 DC 08/17/24 12:39 Sodium Chloride 1,000 ml @ 1,000 mls/hr Q1H ONCE IV 08/17/24 11:00 08/17/24 11:59 DC 08/17/24 12:38 Metronidazole 100 ml @ 100 mls/hr ONCE ONCE IV 08/17/24 12:45 08/17/24 13:44 DC 08/17/24 13:29 X-Ray, Labs, Meds, VS Comment Addendum by Dr. Cassandra Strong: Patient seen in conjunction with Dr. Treadwell. Agree with the assessment, treatment and plan. Time of 1ST Reevaluation: 12:46 Reevaluation 1ST: Unchanged Patient Education/Counseling: Diagnosis, Treatment Family Education/Counseling: No Family Present Comments Patient presented with the vomiting, abdominal pain, diarrhea. workup was initiated. Patient was given: IV pantoprazole, IV Zofran, IV fluids, IV Rocephin and IV Flagyl CT scan of the abdomen/pelvis showed 1. Findings suggestive of colitis that could be inflammatory or infectious in etiology. Recommend clinical and biochemical correlation. 2. Slightly nodular liver contour suggestive of underlying cirrhosis. Small left hepatic lobe cyst is seen. 3. Scattered colonic diverticula without evidence of diverticulitis. Patient has been observed in the ED adequate length of time to insure improvement/stability. patient was admitted to the medicine team for further evaluation and treatment of their presentation. Departure 1 Departure Time of Disposition: 12:42 Impression: Primary Impression: Colitis Additional Impression: Leukocytosis Disposition: ADMITTED INPATIENT Admit to: Med Surg Condition: Guarded ANILA TREADWELL Aug 17, 2024 11:12 ENRIQUETA ROJAS MD Aug 17, 2024 21:58
[2024-08-17 11:49] LABS: Basophils # (auto) 0 10 ^3/uL (0-0.2); Basophils % (auto) 0.3 % (0.0-2.0); Eosinophils # (auto) 0.1 10 ^3/uL (0-0.8); Eosinophils % (auto) 0.4 % (0.0-7.0); Hemoglobin 14.9 g/dL (12.2-16.2); Lymphocytes # (auto) 2.2 10 ^3/uL (0.4-5.4); Lymphocytes % (auto) 16.5 % (10.0-50.0); Mean Corpuscular Hemoglobin 29.7 pg (28.0-32.0); Mean Corpuscular Hgb Conc. 33.8 g/dL (32.0-36.0); Monocytes # (auto) 0.6 10 ^3/uL (0-1.3); Monocytes % (auto) 4.8 % (0.0-12.0); Neutrophils # (auto) 10.5 10 ^3/uL (1.6-8.6); Nucleated Red Blood Cells % 0.1 %; Platelet Count (auto) 375 10^3/uL (140-450); Red Cell Distribution Width 13.9 % (11.8-14.3); White Blood Cell 13.4 10^3/uL (4.4-10.8)
[2024-08-17 12:04] LABS: Alanine Aminotransferase 13 U/L (7-40); Albumin 5.1 g/dL (3.2-4.8); Alkaline Phosphatase 110 U/L (46-116); Anion Gap 14 (5-15); Aspartate Aminotransferase 21 U/L (13-40); BUN/Creatinine Ratio 14.7 (10.0-20.0); Bilirubin, Total 0.6 mg/dL (0.2-1.0); Blood Urea Nitrogen 15 mg/dL (9-23); Calcium 10.5 mg/dL (8.7-10.4); Carbon Dioxide 20 mmol/L (20-31); Chloride 109 mmol/L (98-107); Glucose 176 mg/dL (74-106); Potassium 3.5 mmol/L (3.5-5.1); Sodium 143 mmol/L (136-145); Total Protein 7.8 g/dL (5.7-8.2)
--- NOTE | 2024-08-17 12:08 | DVH ---
Procedure: CT CT AB PEL WO CON-NO ORAL OR IV 08/17/2024 11:05 AM Indication: Persistent vomitting, and diarrhea Comparison Study: None available at time of dictation. Technique: Axial images were obtained and reformatted in coronal and sagittal planes. All CT scans at this medical facility are performed using dose modulation techniques as appropriate t o a performed exam including the following: Automated exposure control was utilized; adjustment of th e MA and/or KV according to patient size; and use of iterative reconstruction technique. CT Dose: CTDI volume is 5.81 mGy. Dose-length product is 281.67 mGy*cm FINDINGS: Lower Chest: Unremarkable. Hepatobiliary: A 1.1 cm hypodense lesion with average attenuation of 8 Hounsfield units noted in the segment IV. There is nodularity of liver contour. Spleen: Unremarkable. Pancreas: Unremarkable. Adrenal Glands: Unremarkable. tract: The kidneys are normal in size bilaterally without hydronephrosis or nephrolithiasis. The urinary bladder is unremarkable. GI tract: A small sliding hiatal hernia noted. No evidence of small bowel obstruction. There is circu mferential mural thickening of the entire large bowel without significant pericolonic fat stranding. Scattered colonic diverticula are seen without evidence of diverticulitis. The appendix is normal. Lymphatics: No mesenteric, retroperitoneal or periportal lymphadenopathy. Vasculature: The abdominal aorta is normal in caliber. Diffuse calcified plaque formation is noted. Pelvic Organs: Unremarkable Bones/soft tissues: No acute osseous abnormality. A small fat-containing umbilical hernia noted. Other: None. IMPRESSION: 1. Findings suggestive of colitis that could be inflammatory or infectious in etiology. Recommend cli nical and biochemical correlation. 2. Slightly nodular liver contour suggestive of underlying cirrhosis. Small left hepatic lobe cyst is seen. 3. Scattered colonic diverticula without evidence of diverticulitis.
[2024-08-17 12:18] LABS: Lipase 52 U/L (12-53)
[2024-08-17] MEDS: SODIUM CHLORIDE 0.9% 1,000 ML IV ONE (12:38)
[2024-08-17] MEDS: ONDANSETRON HCL 4 MG/2 ML VIAL IV ONE (12:39)
[2024-08-17] MEDS: PANTOPRAZOLE 40 MG/10 ML VIAL INJ IV ONE (12:39)
[2024-08-17 12:42] VITALS: RESP 18; O2SAT 98
[2024-08-17] MEDS ORDERED: DOCUSATE SOD 100 MG CAP PO PRN (13:15)
[2024-08-17] MEDS ORDERED: ONDANSETRON HCL 4 MG/2 ML VIAL IV PRN (13:15)
[2024-08-17] MEDS ORDERED: DEXTROSE (50%) 50ML SYRG IV PRN (13:15)
[2024-08-17] MEDS ORDERED: LORazepam 0.5 MG TAB PO PRN (13:15)
[2024-08-17] MEDS ORDERED: TEMAZEPAM 15 MG CAP PO PRN (13:15)
[2024-08-17] MEDS ORDERED: MAALOX PLUS or MAALOX 30 ML PO PRN (13:15)
[2024-08-17] MEDS ORDERED: ACETAMINOPHEN 325 MG TAB PO PRN (13:15)
[2024-08-17] MEDS: metroNIDAZOLE 500MG/100ML 100 ML IV ONE (13:29)
--- NOTE | 2024-08-17 14:39 | DVHHP2 ---
History of Present Illness Reason for Visit: Nausea vomiting History of Present Illness 58-year-old patient with a past medical history of diverticulosis anxiety and depression comes to the ED with complaints of nausea and vomiting and abdominal pain patient has been having pain for the last 2 days stating that since she woke up this morning she has been having consistent nausea and vomiting with as per patient has vomited over 10 times with a higher estimate of higher than 20 times patient was evaluated in the ED CT scan was completed and there suspected signs that the patient may be having signs of acute infectious colitis patient will be admitted as per ED recommendations for further treatment and care Review of Systems Constitutional: Yes: Weakness; No: Fever, Chills, Sweats, Malaise, Other Eyes: No: Pain, Vision change, Conjunctivae inflammation, Eyelid inflammation, Other, Redness ENT: No: Ear pain, Ear discharge, Nose pain, Nose discharge, Nose congestion, Mouth pain, Mouth swelling, Throat pain, Throat swelling, Other Respiratory: No: Cough, Dry, Shortness of breath, SOB with excertion, Wheezing, Hemoptysis, Pleuritic Pain, Sputum, Wheezing, Other Cardiovascular: No: Chest Pain, Palpitations, Orthopnea, Paroxysmal Noc. Dyspnea, Edema, Lt Headedness, Other Gastrointestinal: Nausea, Vomiting, Abdominal Pain; No: Diarrhea, Constipation, Melena, Hematochezia, Other Genitourinary: No Dysuria, No Frequency, No Incontinence, No Hematuria, No Retention, No Other Musculoskeletal: No: other, neck pain, shoulder pain, arm pain, back pain, hand pain, leg pain, foot pain Skin: No: Rash, Lesions, Jaundice, Bruising, Other Neurological: No: Weakness, Numbness, Incoordination, Change in speech, Confusion, Seizures, Other Allergies: Coded Allergies: NO KNOWN ALLERGIES (Unverified , 07/01/22) Exam Vital Signs Vital Signs Date Time Temp Pulse Resp B/P (MAP) Pulse Ox O2 Delivery O2 Flow Rate FiO2 08/17/24 12:43 97.7 90 18 156/75 (102) 96 97.7 08/17/24 12:42 Room Air* 0 21 General Appearance: Alert, Oriented X3, Cooperative, mild distress HEENT: Atraumatic, PERRLA, EOMI Respiratory: Clear to auscultation, Normal air movement Cardiovascular: Regular rate, Normal S1, Normal S2 Abdominal: Normal bowel sounds, Soft, No tenderness Extremities: No clubbing, No cyanosis, No edema Skin: No rashes, No breakdown Neuro: Normal gait, Normal speech Psych/Mental Status: Mood NL Labs/Xrays Labs Test 08/17/24 12:29 08/17/24 11:16 Range/Units Troponin I High Sensitivity < 3 L </=34 ng/L White Blood Count 13.4 H 4.4-10.8 10^3/uL Red Blood Count 5.00 4.0-5.20 10^6/uL Hemoglobin 14.9 12.2-16.2 g/dL Hematocrit 44.0 36.0-46.0 % Mean Corpuscular Volume 88.0 80.0-100.0 fL Mean Corpuscular Hemoglobin 29.7 28.0-32.0 pg Mean Corpuscular Hemoglobin Concent 33.8 32.0-36.0 g/dL Red Cell Distribution Width 13.9 11.8-14.3 % Platelet Count 375 140-450 10^3/uL Mean Platelet Volume 7.6 6.9-10.8 fL Neutrophils (%) (Auto) 78.0 37.0-80.0 % Lymphocytes (%) (Auto) 16.5 10.0-50.0 % Monocytes (%) (Auto) 4.8 0.0-12.0 % Eosinophils (%) (Auto) 0.4 0.0-7.0 % Basophils (%) (Auto) 0.3 0.0-2.0 % Neutrophils # (Auto) 10.5 H 1.6-8.6 10 ^3/uL Lymphocytes # (Auto) 2.2 0.4-5.4 10 ^3/uL Monocytes # (Auto) 0.6 0-1.3 10 ^3/uL Eosinophils # (Auto) 0.1 0-0.8 10 ^3/uL Basophils # (Auto) 0 0-0.2 10 ^3/uL Nucleated Red Blood Cells 0.1 % Sodium Level 143 136-145 mmol/L Potassium Level 3.5 3.5-5.1 mmol/L Chloride Level 109 H 98-107 mmol/L Carbon Dioxide Level 20 20-31 mmol/L Anion Gap 14 5-15 Blood Urea Nitrogen 15 9-23 mg/dL Creatinine 1.02 0.550-1.02 mg/dL Glomerular Filtration Rate Calc 63 >90 mL/min BUN/Creatinine Ratio 14.7 10.0-20.0 Serum Glucose 176 H 74-106 mg/dL Calcium Level 10.5 H 8.7-10.4 mg/dL Total Bilirubin 0.6 0.2-1.0 mg/dL Aspartate Amino Transferase (AST) 21 13-40 U/L Alanine Aminotransferase (ALT) 13 7-40 U/L Alkaline Phosphatase 110 46-116 U/L Total Protein 7.8 5.7-8.2 g/dL Albumin 5.1 H 3.2-4.8 g/dL Lipase 52 12-53 U/L Assessment/Plan Assessment/Plan Admit to [facility] Infectious colitis suspected IV hydration IV antibiotics Diet as tolerated Chronic underlying diseases including history of suspected cirrhosis Continue with the home medication management CT scan shows signs of possible infectious colitis Patient with hyperglycemia as well Diabetes uncontrolled hyperglycemia IV hydration Insulin sliding scale moderate Incidental finding of liver nodule follow up on outpatient basis Plan discussed with: Patient My Orders Orders - GALILEO BROWN MD Procedure Category Date Status Time Ceftriaxone 1gm/50ml PHA 08/18/24 Logged D5w (Rocephin) 10:00 Metronidazole PHA 08/17/24 Logged 500mg/100ml (Flagyl 14:00 Glucose Blood PHA 08/17/24 Logged (Accu-Chek Comfort 16:00 Insulin R (Human) PHA 08/17/24 Logged (Insulin R) 16:00 Dextrose 50% Syringe PHA 08/17/24 Logged 13:15 Admit ADMIT 08/17/24 Transmitted 13:04 Code Status CODE 08/17/24 Transmitted 13:04 Vital Signs JENARO 08/17/24 In Process 13:04 Review Orders With JENARO 08/17/24 In Process Adm. 13:04 Consistent DIET 08/17/24 Transmitted Carb(Ccho)Diabetes Lunch Sodium Chloride 0.9% PHA 08/17/24 Logged 13:15 Lorazepam Tablet PHA 08/17/24 Logged (Ativan Tablet) 13:15 Alum & Mag PHA 08/17/24 Logged Hydrox-Simethicone 13:15 Docusate Sodium PHA 08/17/24 Logged Capsule (Colace 13:15 Acetaminophen Tablet PHA 08/17/24 Logged (Tylenol Tablet) 13:15 Temazepam (Restoril) PHA 08/17/24 Logged 13:15 Notify Md Of Changes JENARO 08/17/24 In Process From Base 13:04 Advance Directive JENARO 08/17/24 In Process 13:04 Basic Metabolic Panel LAB 08/18/24 Verified 04:00 Complete Blood Count LAB 08/18/24 Verified 04:00 Patient Condition ORDERS 08/17/24 Transmitted 13:04 Allergies JENARO 08/17/24 In Process 13:04 Hydrocodone-Acet PHA 08/17/24 Logged 5/325mg Tab ([place] 13:15 Ondansetron Hcl PHA 08/17/24 Logged (Zofran) 13:15 Morphine Sulfate PHA 08/17/24 Logged Injection 13:15 Notify Md Of Changes [facility] 08/17/24 In Process From Base 13:04 Emergency Dysrhythmia JENARO 08/17/24 In Process Protocol 13:04 Rhythm Strips Once JENARO 08/17/24 In Process Every Shift 13:04 Oxygen By Nasal RT 08/17/24 Transmitted Cannula 13:04 Sertraline Hcl PHA 08/18/24 Logged (Zoloft) 10:00 Mirtazapine Tablet PHA 08/18/24 Logged (Remeron Tablet) 10:00 Problem List: (1) Acute gastroenteritis (2) Vomiting and diarrhea (3) Sepsis, unspecified organism (4) Hypertensive urgency (5) Colitis Date of Service: Aug 17, 2024 Billing Provider: GALILEO BROWN MD Common Visit Codes: [id number] INP/OBS CARE (HIGH) GALILEO BROWN MD Aug 17, 2024 14:39
[2024-08-17] MEDS: SODIUM CHLORIDE 0.9% 1,000 ML IV SCH (15:40)
[2024-08-17] MEDS: HYDROcodone-ACET 5/325MG TAB PO PRN (16:10)
[2024-08-17] MEDS: cefTRIAXone 1GM/50ML D5W 50 ML IV ONE (16:10)
[2024-08-17] MEDS: ACCU-CHEK COMFORT CURVE STRIP VI SCH (16:15)
[2024-08-17] MEDS: InsuLIN REG 1unit/0.01ml Soln (100units/ml) SC SCH (16:17)
[2024-08-17] MEDS: MORPHINE SULFATE INJ 2 MG/ml SYRG IV PRN (22:59)
[2024-08-17] MEDS: metroNIDAZOLE 500MG/100ML 100 ML IV SCH (23:29)
[2024-08-18] VITALS (9 sets, daily range): BP systolic 92–129; BP diastolic 51–69; PULSE 66–87; RESP 13–18; TEMP 98.1–99.1; O2SAT 93–98
[2024-08-18] MEDS: PNEUMOCOCCAL VACC POLYS 25 MCG/0.5 ML VIAL IM ONE (01:45)
[2024-08-18 07:46] LABS: Basophils # (auto) 0 10 ^3/uL (0-0.2); Basophils % (auto) 0.2 % (0.0-2.0); Eosinophils # (auto) 0 10 ^3/uL (0-0.8); Eosinophils % (auto) 0.1 % (0.0-7.0); Hematocrit 36.2 % (36.0-46.0); Hemoglobin 12.2 g/dL (12.2-16.2); Lymphocytes # (auto) 2.5 10 ^3/uL (0.4-5.4); Lymphocytes % (auto) 14.6 % (10.0-50.0); Mean Corpuscular Hemoglobin 29.7 pg (28.0-32.0); Mean Corpuscular Hgb Conc. 33.8 g/dL (32.0-36.0); Mean Corpuscular Volume 87.9 fL (80.0-100.0); Monocytes # (auto) 1.7 10 ^3/uL (0-1.3); Monocytes % (auto) 9.8 % (0.0-12.0); Neutrophils % (auto) 75.3 % (37.0-80.0); Platelet Count (auto) 260 10^3/uL (140-450); Red Blood Cells 4.12 10^6/uL (4.0-5.20); Red Cell Distribution Width 13.9 % (11.8-14.3); White Blood Cell 17.3 10^3/uL (4.4-10.8)
[2024-08-18 07:55] LABS: Anion Gap 11 (5-15); Carbon Dioxide 21 mmol/L (20-31); Sodium 142 mmol/L (136-145)
[2024-08-18 07:57] LABS: Calcium 9.6 mg/dL (8.7-10.4)
[2024-08-18 08:01] LABS: BUN/Creatinine Ratio 17.5 (10.0-20.0); Blood Urea Nitrogen 14 mg/dL (9-23); Chloride 110 mmol/L (98-107); Glucose 84 mg/dL (74-106); Potassium 3.2 mmol/L (3.5-5.1)
[2024-08-18] MEDS: SERTRALINE HCL 50 MG TAB PO SCH (08:04)
[2024-08-18] MEDS: cefTRIAXone 1GM/50ML D5W 50 ML IV SCH (08:30)
[2024-08-18] MEDS: POTASSIUM CHLORIDE 60 MEQ, LIDOCAINE 1% (LOCAL ANESTH.) 6 ML in SODIUM CHL 0.9% 500 ML IV ONE (08:45)
[2024-08-18 10:24] LABS: Urine Bacteria None Seen /hpf (None Seen)
--- NOTE | 2024-08-18 10:38 | ECG ---
[facility] Test Date: 2024-08-17 Test Time: 10:52:54 Pat Name: JIMI CHINCHILLA Department: ER Room: 0283 A Gender: F Form Building Supervisor: LELAND : 1965 Requested By: ANILA PORTILLO Order Number: [id number] Reading MD: Joey Wilson Measurements Intervals Maud Rate: 100 P: 74 MT: 144 QRS: 81 QRSD: 81 T: 30 QT: 360 QTc: 465 Interpretive Statements Sinus tachycardia Left atrial enlargement Consider right ventricular hypertrophy Electronically Signed On 08-18-2024 16:24:00 PST by Joey Wilson Please click the below link to view image of tracing.
[2024-08-18 10:43] LABS: Urine Blood 1+ /uL (Negative); Urine Clarity Clear (Clear); Urine Color Light-Yellow (Yellow); Urine Hyaline Cast FEW /lpf (0 - 2); Urine Mucus FEW (None Seen); Urine Protein, UAD Negative (Negative); Urine Specific Gravity 1.021 (1.001-1.035); Urine Urobilinogen Normal (Negative); Urine WBC 10 /hpf (0 - 5); Urine pH 5.5 (5.0-9.0)
--- NOTE | 2024-08-18 18:12 | DVHPNRES ---
Progress Note Date Seen: Aug 18, 2024 Resident Creating Document: CONNIE DE LUNA RESIDENT Medical Necessity Reason Pt with a Central, PICC or Fol: No Medical Necessity Reason Left mid and lower quadrant pain Subjective Review of Systems This is a 58-year-old patient with a past medical history of diverticulosis, anxiety ,and depression comes to the ED with complaints of nausea, vomiting and abdominal pain . Patient that she has been having the pain for the last 2 days. Pain is located in the left lower quadrant and aching and associated with nausea and vomiting. Patient said she vomited about 10 times prior to coming to the ED. Initial vitals in the ED were grossly unconcerning other than the blood pressure.blood work showed revealed leuckocytosis. CT Abdomen scan revealed suspected signs of acute infectious colitis patient. Patient denied any recent sexual history more sexual activities, Past medical history: diverticulosis anxiety and depression, UTI, Sepsis, C.diff Past surgical history: None Past social history: lives with her children unemployed Family history: Noncontributory Constitutional: Yes: Weakness; No: Fever, Chills, Sweats, Malaise, Other Eyes: No: Pain, Vision change, Conjunctivae inflammation, Eyelid inflammation, Other, Redness ENT: No: Ear pain, Ear discharge, Nose pain, Nose discharge, Nose congestion, Mouth pain, Mouth swelling, Throat pain, Throat swelling, Other Respiratory: No: Cough, Dry, Shortness of breath, SOB with excertion, Wheezing, Hemoptysis, Pleuritic Pain, Sputum, Wheezing, Other Cardiovascular: No: Chest Pain, Palpitations, Orthopnea, Paroxysmal Noc. Dyspnea, Edema, Lt Headedness, Other Gastrointestinal: Nausea, Vomiting, Abdominal Pain; No: Diarrhea, Constipation, Melena, Hematochezia, Other Genitourinary: No Dysuria, No Frequency, No Incontinence, No Hematuria, No Retention, No Other Musculoskeletal: No: other, neck pain, shoulder pain, arm pain, back pain, hand pain, leg pain, foot pain Skin: No: Rash, Lesions, Jaundice, Bruising, Other Neurological: No: Weakness, Numbness, Incoordination, Change in speech, Confusion, Seizures, Other Objective vital signs Vital Sign Date Time Temp Pulse Resp B/P (MAP) Pulse Ox O2 Delivery O2 Flow Rate FiO2 08/18/24 17:00 98.1 66 18 99/52 (68) 96 98.1 08/18/24 08:10 Room Air* 0 21 Total Intake and Output 08/17/24 08/17/24 08/18/24 15:00 23:00 07:00 Intake Total 2000 ml 300 ml Balance 2000 ml 300 ml medications Current Medications Medications Dose Ordered Sig/Adina Route Start Time Stop Time Status Last Admin Dose Admin Ceftriaxone Sodium 50 ml @ 100 mls/hr DAILY IV 08/18/24 10:00 08/18/24 08:30 100 MLS/HR Metronidazole 100 ml @ 100 mls/hr Q8HR IV 08/17/24 22:00 08/18/24 14:34 100 MLS/HR Sertraline HCl 50 mg DAILY PO 08/18/24 10:00 08/18/24 08:04 50 MG Mirtazapine 45 mg HS PO 08/18/24 22:00 Diagnostic Test (Pha) 1 strip IQ4HR 08/17/24 16:00 08/18/24 15:50 1 STRIP Insulin Human Regular IQ4HR SC 08/17/24 16:00 08/18/24 00:25 2 UNITS Dextrose 50 ml UD PRN IV 08/17/24 13:15 Sodium Chloride 1,000 ml @ 60 mls/hr [id number] IV 08/17/24 13:15 08/18/24 05:23 60 MLS/HR Lorazepam 0.5 mg Q6HP PRN PO 08/17/24 13:15 Al Hydrox/Mg Hydrox/Simethicone 30 ml Q6HP PRN PO 08/17/24 13:15 Docusate Sodium 100 mg BIDPRN PRN PO 08/17/24 13:15 Acetaminophen 650 mg Q6HP PRN PO 08/17/24 13:15 Temazepam 15 mg QHSP PRN PO 08/17/24 13:15 Acetaminophen/ Hydrocodone Bitart 1 tab Q4HP PRN PO 08/17/24 13:15 08/18/24 13:03 1 TAB Ondansetron HCl 4 mg Q4HP PRN IV 08/17/24 13:15 Morphine Sulfate 2 mg Q4HPRN PRN IV 08/17/24 13:15 08/17/24 22:59 2 MG Examination General Appearance: Alert, Oriented X3, Cooperative, mild distress HEENT: Atraumatic, PERRLA, EOMI Respiratory: Clear to auscultation, Normal air movement Cardiovascular: Regular rate, Normal S1, Normal S2 Abdominal: Normal bowel sounds, Soft, LLQ tenderness Extremities: No clubbing, No cyanosis, No edema Skin: No rashes, No breakdown Neuro: Normal gait, Normal speech Psych/Mental Status: Mood NL laboratory and microbiology Laboratory Tests 08/18/24 06:43 Test 08/18/24 06:43 Range/Units Serum Glucose 84 74-106 mg/dL Problem List/Assessment/Plan Problem List/Assessment/Plan Possible infectious Colitis --> CT scan shows signs of possible infectious colitis --> Stopped antibiotics --> IV hydration --> Diet as tolerated --> Follow CBC in AM UTI --> Asymptomatic --> IV hydration Diabetes uncontrolled hyperglycemia --> hyperglycemia as well Hypokalemia --> K: 3.2 --> replaced --> repeat labs in AM Hypercholeremia --> Likely due to NS excess Code status: Full Goal of care discussed for more than 30 minutes Case and plan discussed with Dr. Benton Plan discussed with: Patient Date of Service: Aug 18, 2024 Billing Provider: AKI IRVING MD Common Visit Codes: [id number] INP/OBS CARE(HIGH) CONNIE DE LUNA RESIDENT Aug 18, 2024 18:12 AKI IRVING MD Aug 22, 2024 23:23
[2024-08-18] MEDS: MIRTAZAPINE 30 MG TAB PO SCH (21:29)
[2024-08-19 01:00] VITALS: BP 133/75; PULSE 66; RESP 13; TEMP 97.8; O2SAT 99
[2024-08-19 05:00] VITALS: BP 135/81; PULSE 60; RESP 13; TEMP 98.4; O2SAT 97
[2024-08-19 09:00] VITALS: BP 111/94; PULSE 82; RESP 20; TEMP 98.4; O2SAT 94
[2024-08-19 09:00] LABS: Basophils # (auto) 0.1 10 ^3/uL (0-0.2); Basophils % (auto) 0.8 % (0.0-2.0); Eosinophils # (auto) 0.2 10 ^3/uL (0-0.8); Eosinophils % (auto) 1.6 % (0.0-7.0); Hematocrit 38.5 % (36.0-46.0); Hemoglobin 13.1 g/dL (12.2-16.2); Lymphocytes # (auto) 2.3 10 ^3/uL (0.4-5.4); Lymphocytes % (auto) 22.4 % (10.0-50.0); Mean Corpuscular Hemoglobin 29.8 pg (28.0-32.0); Mean Corpuscular Hgb Conc. 34.1 g/dL (32.0-36.0); Mean Corpuscular Volume 87.3 fL (80.0-100.0); Monocytes # (auto) 0.7 10 ^3/uL (0-1.3); Neutrophils % (auto) 68.2 % (37.0-80.0); Platelet Count (auto) 267 10^3/uL (140-450); Red Blood Cells 4.41 10^6/uL (4.0-5.20); Red Cell Distribution Width 14.1 % (11.8-14.3); White Blood Cell 10.3 10^3/uL (4.4-10.8)
[2024-08-19 09:24] LABS: Sodium 142 mmol/L (136-145)
[2024-08-19 09:25] LABS: Anion Gap 8 (5-15); Calcium 9.7 mg/dL (8.7-10.4); Carbon Dioxide 23 mmol/L (20-31)
[2024-08-19 09:26] LABS: Chloride 111 mmol/L (98-107); Potassium 3.2 mmol/L (3.5-5.1)
[2024-08-19 09:30] LABS: BUN/Creatinine Ratio 15.4 (10.0-20.0); Blood Urea Nitrogen 12 mg/dL (9-23)
[2024-08-19 09:33] LABS: Glucose 147 mg/dL (74-106)
[2024-08-19 10:57] LABS: Hepatitis B Surface Antigen Negative (Negative); Hepatitis C Antibody Negative (Negative)
[2024-08-19] MEDS ORDERED: HYDR-4902 PO (11:40)
[2024-08-19] MEDS ORDERED: AUG875T PO (11:59)
[2024-08-19 13:00] VITALS: BP 117/87; PULSE 88; RESP 20; TEMP 98.4; O2SAT 95
[2024-08-19 16:46] VITALS: BP 143/86; PULSE 74; RESP 16; TEMP 98.3; O2SAT 97
--- NOTE | 2024-08-19 18:09 | DVHDSRES ---
Discharge Summary Date of Admission Resident Creating Document: CONNIE DE LUNA RESIDENT Aug 17, 2024 at 13:04 Date of Discharge: Aug 19, 2024 Admitting Diagnosis LLQ PAIN diverticulosis colitis Labs/Diagnostic Data: Laboratory Results Test 08/19/24 08:14 08/19/24 08:08 08/18/24 12:00 08/18/24 10:00 White Blood Count 10.3 10^3/uL (4.4-10.8) Red Blood Count 4.41 10^6/uL (4.0-5.20) Hemoglobin 13.1 g/dL (12.2-16.2) Hematocrit 38.5 % (36.0-46.0) Mean Corpuscular Volume 87.3 fL (80.0-100.0) Mean Corpuscular Hemoglobin 29.8 pg (28.0-32.0) Mean Corpuscular Hemoglobin Concent 34.1 g/dL (32.0-36.0) Red Cell Distribution Width 14.1 % (11.8-14.3) Platelet Count 267 10^3/uL (140-450) Mean Platelet Volume 7.7 fL (6.9-10.8) Neutrophils (%) (Auto) 68.2 % (37.0-80.0) Lymphocytes (%) (Auto) 22.4 % (10.0-50.0) Monocytes (%) (Auto) 7.0 % (0.0-12.0) Eosinophils (%) (Auto) 1.6 % (0.0-7.0) Basophils (%) (Auto) 0.8 % (0.0-2.0) Neutrophils # (Auto) 7.0 10 ^3/uL (1.6-8.6) Lymphocytes # (Auto) 2.3 10 ^3/uL (0.4-5.4) Monocytes # (Auto) 0.7 10 ^3/uL (0-1.3) Eosinophils # (Auto) 0.2 10 ^3/uL (0-0.8) Basophils # (Auto) 0.1 10 ^3/uL (0-0.2) Nucleated Red Blood Cells 0.0 % Sodium Level 142 mmol/L (136-145) Potassium Level 3.2 mmol/L (3.5-5.1) Chloride Level 111 mmol/L (98-107) Carbon Dioxide Level 23 mmol/L (20-31) Anion Gap 8 (5-15) Blood Urea Nitrogen 12 mg/dL (9-23) Creatinine 0.78 mg/dL (0.550-1.02) Glomerular Filtration Rate Calc 87 mL/min (>90) BUN/Creatinine Ratio 15.4 (10.0-20.0) Serum Glucose 147 mg/dL (74-106) Calcium Level 9.7 mg/dL (8.7-10.4) POC Glucose 156 mg/dl (70-106) Lactic Acid Level 1.3 mmol/L (0.4-2.0) Urine Color Light-yellow (Yellow) Urine Clarity Clear (Clear) Urine pH 5.5 (5.0-9.0) Urine Specific [place] 1.021 (1.001-1.035) Urine Protein Negative (Negative) Urine Ketones 2+ (Negative) Urine Blood 1+ /uL (Negative) Urine Nitrite Negative (Negative) Urine Bilirubin Negative (Negative) Urine Urobilinogen Normal mg/dL (Negative) Urine Leukocyte Esterase 3+ /uL (Negative) Urine RBC 1 /hpf (0 - 4) Urine WBC 10 /hpf (0 - 5) Urine Squamous Epithelial Cells Few /hpf (<5) Urine Bacteria None seen /hpf (None Seen) Urine Hyaline Casts Few /lpf (0 - 2) Urine Mucus Few (None Seen) Urine Glucose Trace mg/dL (Normal) Test 08/18/24 06:43 08/17/24 12:29 08/17/24 11:16 Hepatitis B Surface Antigen Negative (Negative) Hepatitis C Antibody Negative (Negative) Troponin I High Sensitivity < 3 ng/L (</=34) Total Bilirubin 0.6 mg/dL (0.2-1.0) Aspartate Amino Transferase (AST) 21 U/L (13-40) Alanine Aminotransferase (ALT) 13 U/L (7-40) Alkaline Phosphatase 110 U/L (46-116) Total Protein 7.8 g/dL (5.7-8.2) Albumin 5.1 g/dL (3.2-4.8) Lipase 52 U/L (12-53) Other Laboratory Tests 08/19/24 08:14 Brief Hx & Hospital Course: This 58-year-old patient with a past medical history of diverticulosis, anxiety, UTI, Sepsis, C.diffand and depression comes to the ED with the complaints of nausea, vomiting and abdominal pain . Patient that she has been having the pain for the last 2 days. Pain located in the left lower quadrant and is associated with nausea and vomiting. Patient said she vomited about 10 times prior to coming to the ED. Initial vitals in the ED were grossly unconcerning other than the blood pressure. Lab work revealed leuckocytosis. CT Abdomen scan revealed suspected signs of acute infectious colitis patient. Constitutional: Yes: Weakness; No: Fever, Chills, Sweats, Malaise, Other Eyes: No: Pain, Vision change, Conjunctivae inflammation, Eyelid inflammation, Other, Redness ENT: No: Ear pain, Ear discharge, Nose pain, Nose discharge, Nose congestion, Mouth pain, Mouth swelling, Throat pain, Throat swelling, Other Respiratory: No: Cough, Dry, Shortness of breath, SOB with excertion, Wheezing, Hemoptysis, Pleuritic Pain, Sputum, Wheezing, Other Cardiovascular: No: Chest Pain, Palpitations, Orthopnea, Paroxysmal Noc. Dyspnea, Edema, Lt Headedness, Other Gastrointestinal: Improved Abdominal Pain; No: Diarrhea, nausea and vomiting, Constipation, Melena, Hematochezia, Other Genitourinary: No Dysuria, No Frequency, No Incontinence, No Hematuria, No Retention, No Other Musculoskeletal: No: other, neck pain, shoulder pain, arm pain, back pain, hand pain, leg pain, foot pain Skin: No: Rash, Lesions, Jaundice, Bruising, Other Neurological: No: Weakness, Numbness, Incoordination, Change in speech, Confusion, Seizures, Other Examination General Appearance: Alert, Oriented X3, Cooperative, mild distress HEENT: Atraumatic, PERRLA, EOMI Respiratory: Clear to auscultation, Normal air movement Cardiovascular: Regular rate, Normal S1, Normal S2 Abdominal: Normal bowel sounds, Soft, LLQ tenderness improved ( 4/10 from 10/10 pain scale) Extremities: No clubbing, No cyanosis, No edema Skin: No rashes, No breakdown Neuro: Normal gait, Normal speech Psych/Mental Status: Mood NL Medical standpoint, patient is stable for discharge. We will be sending the patient home with the following medications: Augmentin 875 mg bid [place] TID Patient is advised to follow up at the discharge Clinic in 7 days. Case and discharge planning was discussed with Dr. Benton Operations or Procedures PATIENT: JIMI CHINCHILLAT: [id number] UNIT: [id number] : 1965 LOC: ER ROOM / BED: / AGE / SEX: 58 / F ADM STATUS: REG ER SERVICE 1053 ORDERING PHYSICIAN: ANILA PORTILLO PROCEDURE(s): ABPL - CT AB PEL WO CON-NO ORAL OR IV REASON: Persistent vomitting, and diarrhea ORDER NUMBER(s): [id number], ACCESSION NUMBER(s): [id number] Procedure: CT CT AB PEL WO CON-NO ORAL OR IV 08/17/2024 11:05 AM Indication: Persistent vomitting, and diarrhea Comparison Study: None available at time of dictation. Technique: Axial images were obtained and reformatted in coronal and sagittal planes. All CT scans at this medical facility are performed using dose modulation techniques as appropriate to a performed exam including the following: Automated exposure control was utilized; adjustment of the MA and/or KV according to patient size; and use of iterative reconstruction technique. CT Dose: CTDI volume is 5.81 mGy. Dose-length product is 281.67 mGy*cm FINDINGS: Lower Chest: Unremarkable. Hepatobiliary: A 1.1 cm hypodense lesion with average attenuation of 8 Hounsfield units noted in the segment IV. There is nodularity of liver contour. Spleen: Unremarkable. Pancreas: Unremarkable. Adrenal Glands: Unremarkable. tract: The kidneys are normal in size bilaterally without hydronephrosis or nephrolithiasis. The urinary bladder is unremarkable. GI tract: A small sliding hiatal hernia noted. No evidence of small bowel obstruction. There is circumferential mural thickening of the entire large bowel without significant pericolonic fat stranding. Scattered colonic diverticula are seen without evidence of diverticulitis. The appendix is normal. Lymphatics: No mesenteric, retroperitoneal or periportal lymphadenopathy. Vasculature: The abdominal aorta is normal in caliber. Diffuse calcified plaque formation is noted. Pelvic Organs: Unremarkable Bones/soft tissues: No acute osseous abnormality. A small fat-containing umbilical hernia noted. Other: None. IMPRESSION: 1. Findings suggestive of colitis that could be inflammatory or infectious in etiology. Recommend clinical and biochemical correlation. 2. Slightly nodular liver contour suggestive of underlying cirrhosis. Small left hepatic lobe cyst is seen. 3. Scattered colonic diverticula without evidence of diverticulitis. ATED BY: RAYA THMOPSON MD DICTATED DATE/TIME: 08/17/24 1206 Condition at Discharge: Good Final Diagnosis/Problems List Possible infectious Colitis UTI Diabetes uncontrolled hyperglycemia Hypokalemia Hypercholeremia Discharge Disposition: Home Discharge Instruct/Medications Diet: See Comment Diet comment: Healthy diet Activity: No Restrictions, As Tolerated Follow Up/Referral: 7 Medications: Augumentin 875 [place] Discharge Statement: "Patient was advised to return to the ER or call 911 if any headaches, dizziness, shortness of breath, chest pain, abdominal pain, bleeding, fevers, or worsening of medical condition. Patient was counseled about treatment plan, medications, possible side effects, patientverbalized understanding. All questions were answered to the best of my ability. This discharge took greater then 30 minutes in planning, reviewing documentation, counseling the patient, and discussing with other team members." ASSESSMENT ASSESSMENT Assessment Possible infectious Colitis UTI Diabetes uncontrolled hyperglycemia Hypokalemia Hypercholeremia Date of Service: Aug 19, 2024 Billing Provider: AKI IRVING MD Common Visit Codes: 30996-XCD/OBS DISCH DAY >30min CONNIE DE LUNA RESIDENT Aug 19, 2024 18:09 AKI IRVING MD Aug 23, 2024 00:08
== END 2024-08-19 17:15 | disposition home or self-care (01) | DRG 463 ==
LOC: ER 10:23 → OVERFLOW 13:04 → WEST WING 23:48
PROVIDERS: ADMIT Student in an Organized Health Care Education/Training Program; ATTEND Student in an Organized Health Care Education/Training Program
DX: N30.01 Acute cystitis with hematuria (principal); A04.9 Bacterial intestinal infection, unspecified; K76.89 Other specified diseases of liver; E87.8 Other disorders of electrolyte and fluid balance, not elsewhere classified; E11.65 Type 2 diabetes mellitus with hyperglycemia; E87.6 Hypokalemia; Z90.710 Acquired absence of both cervix and uterus; Z79.899 Other long term (current) drug therapy
CPT/HCPCS: 36415; 74176; 80048; 80053; 81001; 82962; 83605; 83690; 84484; 85025; 86803; 87040; 87086; 87340; 93005; G0378; J1815; J2003; J2405; J2470; J3490

== ENCOUNTER → 2024-11-02 | Outpatient (CLI) | payer MEDICAID ==
[~2024-11-02] MED LIST changes: +AUG875T PO; +HYDR-4902 PO; +SERT150C PO
[2024-11-02 11:44] LABS: Urine Bacteria None Seen /hpf (None Seen)
[2024-11-02 11:48] LABS: Basophils # (auto) 0.1 10 ^3/uL (0-0.2); Basophils % (auto) 1.1 % (0.0-2.0); Eosinophils # (auto) 0.3 10 ^3/uL (0-0.8); Eosinophils % (auto) 2.8 % (0.0-7.0); Hematocrit 45.1 % (36.0-46.0); Hemoglobin 14.7 g/dL (12.2-16.2); Lymphocytes # (auto) 2.6 10 ^3/uL (0.4-5.4); Lymphocytes % (auto) 28.3 % (10.0-50.0); Mean Corpuscular Hemoglobin 28.9 pg (28.0-32.0); Mean Corpuscular Hgb Conc. 32.7 g/dL (32.0-36.0); Mean Corpuscular Volume 88.3 fL (80.0-100.0); Monocytes # (auto) 0.6 10 ^3/uL (0-1.3); Neutrophils # (auto) 5.7 10 ^3/uL (1.6-8.6); Neutrophils % (auto) 61.8 % (37.0-80.0); Platelet Count (auto) 335 10^3/uL (140-450); Red Blood Cells 5.11 10^6/uL (4.0-5.20); Red Cell Distribution Width 13.8 % (11.8-14.3); White Blood Cell 9.2 10^3/uL (4.4-10.8)
[2024-11-02 11:49] LABS: Urine Blood TRACE /uL (Negative); Urine Clarity Clear (Clear); Urine Color Light-Yellow (Yellow); Urine Mucus FEW (None Seen); Urine Protein, UAD Negative (Negative); Urine Specific Gravity 1.019 (1.001-1.035); Urine Squamous Epithelial Cell FEW /hpf (<5); Urine Urobilinogen Normal (Negative); Urine WBC 1 /HPF (0-5); Urine pH 6.5 (5.0-9.0)
[2024-11-02 12:36] LABS: Alanine Aminotransferase 18 U/L (7-40); Alkaline Phosphatase 107 U/L (46-116); Anion Gap 4 (5-15); Aspartate Aminotransferase 16 U/L (13-40); BUN/Creatinine Ratio 17.9 (10.0-20.0); Blood Urea Nitrogen 15 mg/dL (9-23); Calcium 10.3 mg/dL (8.7-10.4); Carbon Dioxide 29 mmol/L (20-31); Glucose 102 mg/dL (74-106); Potassium 4.3 mmol/L (3.5-5.1); Sodium 141 mmol/L (136-145)
[2024-11-02 12:37] LABS: Albumin 5.1 g/dL (3.2-4.8); Bilirubin, Total 0.3 mg/dL (0.2-1.0); Chloride 108 mmol/L (98-107); Total Protein 7.3 g/dL (5.7-8.2)
== END | disposition home or self-care (01) ==
LOC: LAB 11:27
PROVIDERS: ATTEND Internal Medicine Gastroenterology
DX: R10.9 Unspecified abdominal pain (principal)
CPT/HCPCS: 36415; 80053; 81001; 85025; 87086

== ENCOUNTER → 2024-11-05 | Day surgery (SDC) | payer MEDICAID ==
[2024-11-02 11:47] LABS: Basophils # (auto) 0.1 10 ^3/uL (0-0.2); Basophils % (auto) 0.7 % (0.0-2.0); Eosinophils # (auto) 0.3 10 ^3/uL (0-0.8); Eosinophils % (auto) 2.7 % (0.0-7.0); Hematocrit 44.1 % (36.0-46.0); Hemoglobin 14.7 g/dL (12.2-16.2); Lymphocytes # (auto) 2.7 10 ^3/uL (0.4-5.4); Lymphocytes % (auto) 28.9 % (10.0-50.0); Mean Corpuscular Hemoglobin 29.2 pg (28.0-32.0); Mean Corpuscular Hgb Conc. 33.5 g/dL (32.0-36.0); Mean Corpuscular Volume 87.4 fL (80.0-100.0); Monocytes # (auto) 0.5 10 ^3/uL (0-1.3); Monocytes % (auto) 5.3 % (0.0-12.0); Neutrophils # (auto) 5.8 10 ^3/uL (1.6-8.6); Neutrophils % (auto) 62.4 % (37.0-80.0); Platelet Count (auto) 336 10^3/uL (140-450); Red Blood Cells 5.04 10^6/uL (4.0-5.20); Red Cell Distribution Width 13.9 % (11.8-14.3); White Blood Cell 9.3 10^3/uL (4.4-10.8)
[2024-11-02 12:07] LABS: INR 0.92 (0.9-1.15); Partial Thromboplastin Time 28.3 SEC (24.5-34.5); Prothrombin Time 9.8 sec (9.3-11.8)
[2024-11-02 12:35] LABS: Alanine Aminotransferase 17 U/L (7-40); Alkaline Phosphatase 108 U/L (46-116); Anion Gap 4 (5-15); Aspartate Aminotransferase 16 U/L (13-40); BUN/Creatinine Ratio 16.9 (10.0-20.0); Blood Urea Nitrogen 14 mg/dL (9-23); Calcium 10.3 mg/dL (8.7-10.4); Carbon Dioxide 29 mmol/L (20-31); Glucose 100 mg/dL (74-106); Potassium 4.2 mmol/L (3.5-5.1); Sodium 141 mmol/L (136-145)
[2024-11-02 12:36] LABS: Albumin 5.1 g/dL (3.2-4.8); Bilirubin, Total 0.3 mg/dL (0.2-1.0); Chloride 108 mmol/L (98-107); Total Protein 7.4 g/dL (5.7-8.2)
[~2024-11-05] VITALS: Ht 152.4 cm; Wt 56.7 kg
[~2024-11-05] MED LIST changes: -AUG875T PO; -HYDR-4902 PO; -SERT-206 PO; +SODIUM CHLORIDE LOCK 10 ML ONE; -VANC125C3 PO
[2024-11-05] MEDS: diphenhdrAMINE HCL 50 MG/1 ML VL ONE (14:52)
[2024-11-05] MEDS: fentaNYL CITRATE 100 MCG/2 ML VL ONE ×2 (14:52→14:58)
[2024-11-05] MEDS: MIDAZOLAM HCL 5 MG/ML-1ML VIAL ONE (14:52)
[2024-11-05 15:15] VITALS: PULSE 83; RESP 12; TEMP 97.5; O2SAT 95
--- NOTE | 2024-11-05 15:17 | DVHOP2 ---
Operative Report DATE OF OPERATION: 11/05/24 PROCEDURE: Colonoscopy with cold biopsy. PREOPERATIVE INDICATION: The patient is a 59 -year-old female undergoing colonoscopy for colon cancer screening with personal history of change in bowel habits and prior history of C diff colitis POSTOPERATIVE DIAGNOSES: 1. [id number] sigmoid diverticular disease with sigmoid muscular hypertrophy 2. There was a 1-2 mm benign-appearing hyperplastic type sigmoid polyp that was seen and removed by cold biopsy forceps 3. 1+ internal hemorrhoids otherwise essentially completely normal colonoscopy examination up to the cecum and terminal ileum PROCEDURE PERFORMED BY: Cherie Stafford M.D. SCOPE: Olympus videocolonoscope. ASA CLASS: 2 PREOPERATIVE MEDICATIONS: Versed 5 mg IV, fentanyl 150 mcg IV, Benadryl 50 mg IV PROCEDURE IN DETAIL: After obtaining an informed consent, the patient was placed on left lateral decubitus position. She was then sedated with the above medications. A rectal examination was performed that was normal. The colonoscope was then passed through the anus into the rectosigmoid and through the descending, transverse, and ascending colon up to the cecum with visualization of the appendiceal orifice, base of the cecum and the ileocecal valve. The colonoscope was then withdrawn. Distal 5-10 cm of the terminal ileum were normal No masses or colitis was noted. Patient had [id number] sigmoid divertic ular disease with sigmoid muscular hypertrophy There was a tiny 1 mm hyperplastic type sigmoid polyp that was seen and removed by cold biopsy forceps On retroflexion and straight on view the patient had trace to 1+ internal hemorrhoids The patient tolerated the procedure well without difficulty. WITHDRAWAL TIME: 8 minutes QUALITY OF THE PREP: [place] Bowel Prep score: 9. COMPLICATIONS : None SPECIMENS: Sigmoid colon polyp DISPOSITION: Stable D/C to home PLAN: 1. Repeat colonoscopy base on biopsy result likely in 7-10 years 2. Resume GI soft diet advance as tolerated 3. Increase fluid and fiber intake 4. Local anorectal hemorrhoidal care 5. Outpatient follow up with me in 4-6 weeks to review results and discuss further management CHERIE STAFFORD MD Nov 05, 2024 15:17
[2024-11-05 15:45] VITALS: BP 118/74; PULSE 73; RESP 17; O2SAT 96
== END | disposition home or self-care (01) ==
LOC: GI 10:24
PROVIDERS: ATTEND Internal Medicine Gastroenterology
DX: Z12.11 Encounter for screening for malignant neoplasm of colon (principal); K63.5 Polyp of colon; K57.30 Diverticulosis of large intestine without perforation or abscess without bleeding; K64.8 Other hemorrhoids; F41.8 Other specified anxiety disorders; Z79.899 Other long term (current) drug therapy; Z90.710 Acquired absence of both cervix and uterus; Z98.890 Other specified postprocedural states
CPT/HCPCS: 36415; 45380; 80053; 85025; 85610; 85730; 88305; J1200; J2250; J3010; J7030; 99152

== ENCOUNTER → 2024-11-24 | Outpatient (CLI) | payer MEDICAID ==
[~2024-11-24] MED LIST changes: -SODIUM CHLORIDE LOCK 10 ML ONE
== END | disposition home or self-care (01) ==
LOC: LAB 12:08
PROVIDERS: ATTEND Internal Medicine Gastroenterology
DX: R93.3 Abnormal findings on diagnostic imaging of other parts of digestive tract (principal)
CPT/HCPCS: 82728; 86038

== ENCOUNTER 2025-01-07 17:54 | Inpatient (IN) | payer MEDICAID ==
[~2025-01-07] VITALS: Ht 157.5 cm; Wt 58.5 kg
--- NOTE | 2025-01-07 18:44 | ED.PDOC ---
GI ASSESSMENT HPI Comments Vitals on scene: pulse of 94, respiratory rate of 18, blood pressure of 154/75, SpO2 of 100%RA Vitals upon ED arrival: temperature of 98.6F, pulse of 91, respiratory rate of 18, blood pressure of 153/81, SpO2 of 98%RA Past medical history: anxiety, depression, colitis, complicated UTI w/sepsis Past surgical history: hysterectomy, colonoscopy HPI: Poor Historian. 59 y/o F is BIBA for c/o right-flank pain, with associated nausea, vomiting, and diarrhea. She reports on pain being ongoing following initial sudden and unprovoked onset of 0400. Says that pain radiates to her right-side of her abdomen Admits to history of pain before when she had a complicated UTI with sepsis and C. Diff. Reports on vomitus being nobiliary and without blood. Denies having any diarrhea, constipation, urinary symptoms, fever, chills, or other symptoms at this time. REVIEW OF SYSTEMS: CONSTITUTIONAL: Denies acute: fever, diaphoresis, chills, HEAD: Denies acute: headache, photophobia Eyes: Denies acute: Double vision, vision loss, eye pain, eye discharge. EARS: Denies acute: tinnitus, hearing loss, ear discharge, ear pain, THROAT: Denies acute: sore throat, swelling, difficulty swallowing , pain with swallowing, change in voice. NECK: Denies acute: neck pain, neck swelling, stiff neck. HEART: Denies acute : chest pain, palpitations, LUNGS: Denies acute: SOB, wheezing, cough, hemoptysis ABDOMEN: Denies acute: Vomiting, diarrhea, melena , hematemesis, hematochezia SKIN: Denies acute: rash, redness, lesions, itchiness. EXTREMITIES: Denies acute: calf pain, numbness, tingling, weakness, denies pain in extremity. Denies acute: Low back pain. Neuro: Denies acute: focal neurological deficit, motor or sensory focal neurological deficit, tremors, seizure like activity, confusion, dizziness, change in mental status, loss of bowel or bladder function, cauda equina like symptoms. : Denies acute: dysuria, hematuria, increase in urinary frequency. PSYCH: Denies acute: hallucination, suicidal ideation, homicidal ideation. FEMALE: Denies acute: abnormal vaginal bleeding, foul odor, unusual discharge. PHYSICAL EXAM: General: ----mild to moderate----acute distress, awake and alert. Head: normocephalic, atraumatic. Neck: supple, trachea is midline, no swelling. Throat: Normal phonation. Eyes:, no erythema, no purulent discharge, no proptosis, no icterus. Heart: regular rate, regular rhythm, no significant murmur appreciated. Lungs: no apparent respiratory distress, Able to speak in full sentences. No wheezing, no rhonchi, no crackles. No stridors Clear to auscultation bilaterally. Abdomen: Right-sided abdominal tender to palpation, non distended, soft, no guarding, no rebound, + bowel sounds. Neuro: Awake, Alert, oriented to name, self, situation, follows commands GCS=15. Speech is normal. Skin: no petechia, no purpura, no cyanosis, non-pale, not jaundice. Lower extremities: --no - Pitting edema no deformity, no focal swelling, no calf TTP. Makes eye contact. moves all four extremities. Face: no apparent facial droop. Right CVA tenderness to percussion Ambulating in the ED independently. ED COURSE: Chief Complaint: Abdominal Pain Time Seen by MD: 18:30 Primary Care Provider: unknown Reviewed Notes: Nurses Notes, Allergies Allergies: Coded Allergies: NO KNOWN ALLERGIES (Unverified , 07/01/22) Home Meds Reported Medications Sertraline HCl (Sertraline Hydrochloride) 150 Mg Cap, 150 MG PO, CAP 11/02/24 Mirtazapine (Mirtazapine Oral Disintegrating Tablet) 45 Mg Tab, 1 TAB PO 07/30/23 Information Source: Patient Mode of Arrival: Ambulatory Past Medical History PAST MEDICAL HISTORY: Anxiety Surgical History: Hysterectomy [employer] OPERATOR History: Endometriosis Family History Family History: Family hx of Cancer Social History Smoker: Cigarettes Alcohol: Denies ETOH Use Drugs: Marijuana Lives In: Home Was a procedure done? Was a procedure done?: No GI differential Dx Differential Diagnosis: Other (DDX include Diverticulitis, colitis, gastroenteritis, acute abdomen, SBO, enteritis, constipation, volvulus, append icitis, Gallbladder disease, choledocolithiasis, ascending cholangitis, pancreatitis, intraAbdominal mass/neoplasm, hepatitis, UTI, pylonephritis, kidney stone, aneurysm, dissection, Inflammatory bowel disease, gastroparesis, ischemic bowel, ovarian torsion, ovarian cyst/mass, tubo-ovarian abscess, ) X-Ray, Labs, Meds, VS Vital Signs Date Time Temp Pulse Resp B/P (MAP) Pulse Ox O2 Delivery O2 Flow Rate FiO2 01/07/25 18:14 98.6 91 18 153/81 (105) 98 98.6 Lab Test 01/07/25 18:38 01/07/25 18:19 Range/Units White Blood Count 18.5 H 4.4-10.8 10^3/uL Red Blood Count 5.35 H 4.0-5.20 10^6/uL Hemoglobin 15.5 12.2-16.2 g/dL Hematocrit 45.5 36.0-46.0 % Mean Corpuscular Volume 85.1 80.0-100.0 fL Mean Corpuscular Hemoglobin 29.1 28.0-32.0 pg Mean Corpuscular Hemoglobin Concent 34.2 32.0-36.0 g/dL Red Cell Distribution Width 13.8 11.8-14.3 % Platelet Count 450 140-450 10^3/uL Mean Platelet Volume 7.3 6.9-10.8 fL Neutrophils (%) (Auto) 90.1 H 37.0-80.0 % Lymphocytes (%) (Auto) 6.0 L 10.0-50.0 % Monocytes (%) (Auto) 3.5 0.0-12.0 % Eosinophils (%) (Auto) 0.0 0.0-7.0 % Basophils (%) (Auto) 0.4 0.0-2.0 % Neutrophils # (Auto) 16.7 H 1.6-8.6 10 ^3/uL Lymphocytes # (Auto) 1.1 0.4-5.4 10 ^3/uL Monocytes # (Auto) 0.6 0-1.3 10 ^3/uL Eosinophils # (Auto) 0 0-0.8 10 ^3/uL Basophils # (Auto) 0.1 0-0.2 10 ^3/uL Nucleated Red Blood Cells 0.1 % Sodium Level 145 136-145 mmol/L Potassium Level 3.1 L 3.5-5.1 mmol/L Chloride Level 114 H 98-107 mmol/L Carbon Dioxide Level 20 20-31 mmol/L Anion Gap 11 5-15 Blood Urea Nitrogen 16 9-23 mg/dL Creatinine 1.09 H 0.550-1.02 mg/dL Glomerular Filtration Rate Calc 58 >90 mL/min BUN/Creatinine Ratio 14.7 10.0-20.0 Serum Glucose 190 H 74-106 mg/dL Lactic Acid Level 3.4 *H 0.4-2.0 mmol/L Calcium Level 10.9 H 8.7-10.4 mg/dL Total Bilirubin 0.6 0.2-1.0 mg/dL Aspartate Amino Transferase (AST) 22 13-40 U/L Alanine Aminotransferase (ALT) 18 7-40 U/L Alkaline Phosphatase 118 H 46-116 U/L Troponin I High Sensitivity 166 *H </=34 ng/L Total Protein 8.4 H 5.7-8.2 g/dL Albumin 5.5 H 3.2-4.8 g/dL Lipase 26 12-53 U/L Urine Color Light-yellow Yellow Urine Clarity Clear Clear Urine pH 5.5 5.0-9.0 Urine Specific [place] 1.020 1.001-1.035 Urine Protein Trace H Negative Urine Ketones 2+ H Negative Urine Blood 2+ H Negative /uL Urine Nitrite Negative Negative Urine Bilirubin Negative Negative Urine Urobilinogen Normal Negative mg/dL Urine Leukocyte Esterase 3+ Negative /uL Urine RBC 10 0 - 4 /hpf Urine Microscopic WBC 6 H 0-5 /HPF Urine Squamous Epithelial Cells Few <5 /hpf Urine Bacteria Few H None Seen /hpf Urine Mucus Few None Seen Urine Glucose 3+ H Normal mg/dL Microbiology Date/Time Source Procedure Growth Status 01/07/25 19:45 Blood Blood Culture - Preliminary NO GROWTH AFTER 24 HOURS OF INCUBATION. Resulted 01/07/25 19:35 Blood Blood Culture - Preliminary NO GROWTH AFTER 24 HOURS OF INCUBATION. Resulted [facility] [id number] [place] [id number] Ph: [phone] DIAGNOSTIC IMAGING Diagnostic Imaging Report : [id number] Signed PATIENT: JIMI CHINCHILLACCT: [id number] UNIT: [id number] : 1965 LOC: ER ROOM / BED: / AGE / SEX: 59 / F ADM STATUS: REG ER SERVICE 1801 ORDERING PHYSICIAN: STACIA WELLER DO PROCEDURE(s): ABPL - CT AB PEL WO CON-NO ORAL OR IV REASON: RLQ abd pain ORDER NUMBER(s): [id number], ACCESSION NUMBER(s): [id number] Procedure: CT CT AB PEL WO CON-NO ORAL OR IV 01/07/2025 06:23 PM Indication: RLQ abd pain Comparison Study: CT CT AB PEL WO CON-NO ORAL OR IV on DOS: 08/17/24, CT CT AB PEL WO CON-NO ORAL OR IV on DOS: 03/29/24, CT CT AB PEL WO CON-NO ORAL OR IV on DOS: 02/01/24 Technique: Axial images were obtained and reformatted in coronal and sagittal planes. All CT scans at this medical facility are performed using dose modulation techniques as appropriate to a performed exam including the following: Automated exposure control was utilized; adjustment of the MA and/or KV according to patient size; and use of iterative reconstruction technique. CT Dose: CTDI volume is 5.6 mGy. Dose-length product is 264 mGy*cm FINDINGS: Lower Chest: Unremarkable. Hepatobiliary: Small left hepatic lobe cyst is identified. Slightly irregular liver contour. No intrahepatic or extrahepatic ductal dilatation. No calcified gallstone. Spleen: Unremarkable. Pancreas: Unremarkable. Adrenal Glands: Unremarkable. tract: The kidneys are normal in size bilaterally without hydronephrosis or nephrolithiasis. The urinary bladder is unremarkable. GI tract: The stomach is grossly normal in appearance. No evidence of small bowel obstruction. Circumferential mural thickening of the large bowel noted. S cattered colonic diverticula are seen. The appendix is normal. Lymphatics: No mesenteric, retroperitoneal or periportal lymphadenopathy. Vasculature: The abdominal aorta is normal in caliber. Diffuse calcified plaque formation is noted. Pelvic Organs: Unremarkable Bones/soft tissues: No acute osseous abnormality. A small fat-containing umbilical hernia noted. Other: None. IMPRESSION: 1. Mild diffuse proctocolitis. 2. Slightly nodular liver contour suggestive of cirrhosis. Correlate with liver function tests. ATED BY: RAYA THOMPSON MD DICTATED DATE/TIME: 01/07/251921 SIGNED BY: RAYA THOMPSON MD SIGNED DATE/TIME: 01/07/251921 CC: Time of 1ST Reevaluation: 18:30 Reevaluation 1ST: Unchanged Patient Education/Counseling: Diagnosis, Treatment Family Education/Counseling: No Family Present Comments Sepsis protocol was initiated with weight based fluid resuscitation. Antibiotics initiated to cover GI etiology and UTI. Patient presented with the above HPI.---right flank pain and abdominal pain-and diarrhea--workup was initiated. patient was found with the above mentioned diagnosis. the following medications were ordered: please refer to order lists of meds and tests obtained by myself Dr. Weller. Patient ED course and VS have been stabilized. Patient has been reassessed in the ED and remained in a stable condition. Pertinent incidental findings were discussed with the patient and/or family. Patient/family voices understanding and is agreeable with plan. Patient has been observed in the ED adequate length of time to insure improvement/stability. Escalation of care considered: Consideration of escalation to observation or admission Patient was ADMITTED to the medicine team for further evaluation and treatment of their presentation. All the reports of any imaging studies that were ordered by myself were reviewed by myself. Departure 1 Departure Time of Disposition: 20:39 Impression: Primary Impression: Sepsis Additional Impressions: UTI (urinary tract infection) Leukocytosis Elevated lactic acid level Proctocolitis Disposition: ADMITTED INPATIENT Admit to: [facility] Condition: Guarded Discharged With: Self Critical Care Note Critical Care Time?: Yes (55 min-critical care time only) I personally scribed for STACIA WELLER DO ([email or web address]) on 01/07/25 at 18:44. Electronically submitted by Alphonse Fitch ([email or web address]). I personally scribed for STACIA WELLER DO ([email or web address]) on 01/07/25 at 19:35. Electronically submitted by Alphonse Fitch ([email or web address]). STACIA WELLER DO Jan 07, 2025 18:44
[2025-01-07 18:48] LABS: Urine Bacteria FEW /hpf (None Seen); Urine Blood 2+ /uL (Negative); Urine Clarity Clear (Clear); Urine Color Light-Yellow (Yellow); Urine Mucus FEW (None Seen); Urine Protein, UAD TRACE (Negative); Urine Squamous Epithelial Cell FEW /hpf (<5); Urine Urobilinogen Normal (Negative); Urine WBC 6 /HPF (0-5); Urine pH 5.5 (5.0-9.0)
[2025-01-07 19:03] LABS: Basophils # (auto) 0.1 10 ^3/uL (0-0.2); Basophils % (auto) 0.4 % (0.0-2.0); Eosinophils # (auto) 0 10 ^3/uL (0-0.8); Hematocrit 45.5 % (36.0-46.0); Hemoglobin 15.5 g/dL (12.2-16.2); Lymphocytes # (auto) 1.1 10 ^3/uL (0.4-5.4); Mean Corpuscular Hemoglobin 29.1 pg (28.0-32.0); Mean Corpuscular Hgb Conc. 34.2 g/dL (32.0-36.0); Mean Corpuscular Volume 85.1 fL (80.0-100.0); Monocytes # (auto) 0.6 10 ^3/uL (0-1.3); Monocytes % (auto) 3.5 % (0.0-12.0); Neutrophils # (auto) 16.7 10 ^3/uL (1.6-8.6); Neutrophils % (auto) 90.1 % (37.0-80.0); Nucleated Red Blood Cells % 0.1 %; Platelet Count (auto) 450 10^3/uL (140-450); Red Blood Cells 5.35 10^6/uL (4.0-5.20); Red Cell Distribution Width 13.8 % (11.8-14.3); White Blood Cell 18.5 10^3/uL (4.4-10.8)
[2025-01-07 19:20] LABS: Alanine Aminotransferase 18 U/L (7-40); Anion Gap 11 (5-15); Aspartate Aminotransferase 22 U/L (13-40); BUN/Creatinine Ratio 14.7 (10.0-20.0); Blood Urea Nitrogen 16 mg/dL (9-23); Carbon Dioxide 20 mmol/L (20-31); Lipase 26 U/L (12-53)
[2025-01-07 19:21] LABS: Bilirubin, Total 0.6 mg/dL (0.2-1.0)
[2025-01-07 19:22] LABS: Lactic Acid w/Reflex 3.4 mmol/L (0.4-2.0)
[2025-01-07 19:23] LABS: Albumin 5.5 g/dL (3.2-4.8); Alkaline Phosphatase 118 U/L (46-116); Calcium 10.9 mg/dL (8.7-10.4); Chloride 114 mmol/L (98-107); Glucose 190 mg/dL (74-106); Potassium 3.1 mmol/L (3.5-5.1); Sodium 145 mmol/L (136-145); Total Protein 8.4 g/dL (5.7-8.2)
--- NOTE | 2025-01-07 19:25 | DVH ---
Procedure: CT CT AB PEL WO CON-NO ORAL OR IV 01/07/2025 06:23 PM Indication: RLQ abd pain Comparison Study: CT CT AB PEL WO CON-NO ORAL OR IV on DOS: 08/17/24, CT CT AB PEL WO CON-NO ORAL OR IV on DOS: 03/29/24, CT CT AB PEL WO CON-NO ORAL OR IV on DOS: 02/01/24 Technique: Axial images were obtained and reformatted in coronal and sagittal planes. All CT scans at this medical facility are performed using dose modulation techniques as appropriate to a performed e xam including the following: Automated exposure control was utilized; adjustment of the MA and/or KV according to patient size; and use of iterative reconstruction technique. CT Dose: CTDI volume is 5.6 mGy. Dose-length product is 264 mGy*cm FINDINGS: Lower Chest: Unremarkable. Hepatobiliary: Small left hepatic lobe cyst is identified. Slightly irregular liver contour. No intra hepatic or extrahepatic ductal dilatation. No calcified gallstone. Spleen: Unremarkable. Pancreas: Unremarkable. Adrenal Glands: Unremarkable. tract: The kidneys are normal in size bilaterally without hydronephrosis or nephrolithiasis. The u rinary bladder is unremarkable. GI tract: The stomach is grossly normal in appearance. No evidence of small bowel obstruction. Circum ferential mural thickening of the large bowel noted. Scattered colonic diverticula are seen. The appe ndix is normal. Lymphatics: No mesenteric, retroperitoneal or periportal lymphadenopathy. Vasculature: The abdominal aorta is normal in caliber. Diffuse calcified plaque formation is noted. Pelvic Organs: Unremarkable Bones/soft tissues: No acute osseous abnormality. A small fat-containing umbilical hernia noted. Other: None. IMPRESSION: 1. Mild diffuse proctocolitis. 2. Slightly nodular liver contour suggestive of cirrhosis. Correlate with liver function tests.
[2025-01-07] MEDS ORDERED: CIPROFLOXACIN 400MG/200ML 200 ML IV ONE (19:30)
[2025-01-07] MEDS ORDERED: cefTRIAXone 1GM/50ML D5W 50 ML IV ONE (19:30)
[2025-01-07] MEDS ORDERED: DEXTROSE (50%) 50ML SYRG IV PRN (20:30)
[2025-01-07] MEDS ORDERED: TEMAZEPAM 15 MG CAP PO PRN (20:30)
[2025-01-07] MEDS ORDERED: ONDANSETRON HCL 4 MG/2 ML VIAL IV PRN (20:30)
[2025-01-07] MEDS ORDERED: ACETAMINOPHEN 325 MG TAB PO PRN (20:30)
[2025-01-07] MEDS ORDERED: DOCUSATE SOD 100 MG CAP PO PRN (20:30)
--- NOTE | 2025-01-07 20:40 | DVHHP2 ---
History of Present Illness Reason for Visit: flank pain History of Present Illness 59-year-old female with a complaint of flank pain nausea vomiting diarrhea patient was status the acute right-sided abdominal pain patient was has a history complicated UTIs with sepsis in the past mumbles evaluated in the ED even completely CT scan was signs of possible GI infection patient was recommended for admission and further management GI: Gastritis Review of Systems Constitutional: Yes: Fever; No: Chills, Sweats, Weakness, Malaise, Other Eyes: No: Pain, Vision change, Conjunctivae inflammation, Eyelid inflammation, Other, Redness ENT: No: Ear pain, Ear discharge, Nose pain, Nose discharge, Nose congestion, Mouth pain, Mouth swelling, Throat pain, Throat swelling, Other Respiratory: No: Cough, Dry, Shortness of breath, SOB with excertion, Wheezing, Hemoptysis, Pleuritic Pain, Sputum, Wheezing, Other Cardiovascular: No: Chest Pain, Palpitations, Orthopnea, Paroxysmal Noc. Dyspnea, Edema, Lt Headedness, Other Gastrointestinal: Nausea, Vomiting, Abdominal Pain, Diarrhea Genitourinary: No Dysuria, No Frequency, No Incontinence, No Hematuria, No Retention, No Other Musculoskeletal: No: other, neck pain, shoulder pain, arm pain, back pain, hand pain, leg pain, foot pain Skin: No: Rash, Lesions, Jaundice, Bruising, Other Neurological: Weakness; No: Numbness, Incoordination, Change in speech, Confusion, Seizures, Other Allergies: Coded Allergies: NO KNOWN ALLERGIES (Unverified , 07/01/22) Exam Vital Signs Vital Signs Date Time Temp Pulse Resp B/P (MAP) Pulse Ox O2 Delivery O2 Flow Rate FiO2 01/07/25 18:14 98.6 91 18 153/81 (105) 98 98.6 Exam General:mild acute distress, awake and alert. Head: normocephalic, atraumatic. Neck: supple, trachea is midline, no swelling. Throat: Normal phonation. Eyes:, no erythema, no purulent discharge, no proptosis, no icterus. Heart: regular rate, regular rhythm, no significant murmur appreciated. Lungs: no apparent respiratory distress, Able to speak in full sentences. No wheezing, no rhonchi, no crackles. No stridors Clear to auscultation bilaterally. Abdomen: Right-sided abdominal tender to palpation, non distended, soft, no guarding, no rebound, + bowel sounds. Neuro: Awake, Alert, oriented to name, self, situation, follows commands GCS=15. Speech is normal. Skin: no petechia, no purpura, no cyanosis, non-pale, not jaundice. Lower extremities: --no - Pitting edema no deformity, no focal swelling, no calf TTP. Makes eye contact. moves all four extremities. Face: no apparent facial droop. Right CVA tenderness to percussion Labs/Xrays Labs Test 01/07/25 18:38 01/07/25 18:19 Range/Units White Blood Count 18.5 H 4.4-10.8 10^3/uL Red Blood Count 5.35 H 4.0-5.20 10^6/uL Hemoglobin 15.5 12.2-16.2 g/dL Hematocrit 45.5 36.0-46.0 % Mean Corpuscular Volume 85.1 80.0-100.0 fL Mean Corpuscular Hemoglobin 29.1 28.0-32.0 pg Mean Corpuscular Hemoglobin Concent 34.2 32.0-36.0 g/dL Red Cell Distribution Width 13.8 11.8-14.3 % Platelet Count 450 140-450 10^3/uL Mean Platelet Volume 7.3 6.9-10.8 fL Neutrophils (%) (Auto) 90.1 H 37.0-80.0 % Lymphocytes (%) (Auto) 6.0 L 10.0-50.0 % Monocytes (%) (Auto) 3.5 0.0-12.0 % Eosinophils (%) (Auto) 0.0 0.0-7.0 % Basophils (%) (Auto) 0.4 0.0-2.0 % Neutrophils # (Auto) 16.7 H 1.6-8.6 10 ^3/uL Lymphocytes # (Auto) 1.1 0.4-5.4 10 ^3/uL Monocytes # (Auto) 0.6 0-1.3 10 ^3/uL Eosinophils # (Auto) 0 0-0.8 10 ^3/uL Basophils # (Auto) 0.1 0-0.2 10 ^3/uL Nucleated Red Blood Cells 0.1 % Sodium Level 145 136-145 mmol/L Potassium Level 3.1 L 3.5-5.1 mmol/L Chloride Level 114 H 98-107 mmol/L Carbon Dioxide Level 20 20-31 mmol/L Anion Gap 11 5-15 Blood Urea Nitrogen 16 9-23 mg/dL Creatinine 1.09 H 0.550-1.02 mg/dL Glomerular Filtration Rate Calc 58 >90 mL/min BUN/Creatinine Ratio 14.7 10.0-20.0 Serum Glucose 190 H 74-106 mg/dL Lactic Acid Level 3.4 *H 0.4-2.0 mmol/L Calcium Level 10.9 H 8.7-10.4 mg/dL Total Bilirubin 0.6 0.2-1.0 mg/dL Aspartate Amino Transferase (AST) 22 13-40 U/L Alanine Aminotransferase (ALT) 18 7-40 U/L Alkaline Phosphatase 118 H 46-116 U/L Troponin I High Sensitivity 166 *H </=34 ng/L Total Protein 8.4 H 5.7-8.2 g/dL Albumin 5.5 H 3.2-4.8 g/dL Lipase 26 12-53 U/L Urine Color Light-yellow Yellow Urine Clarity Clear Clear Urine pH 5.5 5.0-9.0 Urine Specific [place] 1.020 1.001-1.035 Urine Protein Trace H Negative Urine Ketones 2+ H Negative Urine Blood 2+ H Negative /uL Urine Nitrite Negative Negative Urine Bilirubin Negative Negative Urine Urobilinogen Normal Negative mg/dL Urine Leukocyte Esterase 3+ Negative /uL Urine RBC 10 0 - 4 /hpf Urine Microscopic WBC 6 H 0-5 /HPF Urine Squamous Epithelial Cells Few <5 /hpf Urine Bacteria Few H None Seen /hpf Urine Mucus Few None Seen Urine Glucose 3+ H Normal mg/dL Assessment/Plan Assessment/Plan admit to [facility] suspected colitis possible infectious with elevated white count iv hydration symptomatic treatment iv abx Plan discussed with: Patient My Orders Orders - GALILEO BROWN MD Procedure Category Date Status Time Admit ADMIT 01/07/25 Transmitted 20:30 Code Status CODE 01/07/25 Transmitted 20:30 Vital Signs [facility] 01/07/25 In Process 20:30 Review Orders With JENARO 01/07/25 In Process Adm. 20:30 Npo (Nothing By DIET 01/08/25 Transmitted Mouth) Diet Breakfast Sodium Chloride 0.9% [facility] 01/07/25 Logged 20:30 Lorazepam Tablet [facility] 01/07/25 Logged (Ativan Tablet) 20:30 Docusate Sodium [facility]A 01/07/25 Logged Capsule (Colace 20:30 Acetaminophen Tablet [facility] 01/07/25 Logged (Tylenol Tablet) 20:30 Temazepam (Restoril) [facility]A 01/07/25 Logged 20:30 Notify Md Of Changes [facility] 01/07/25 In Process From Base 20:30 Advance Directive JENARO 01/07/25 In Process 20:30 Patient Condition ORDERS 01/07/25 Transmitted 20:30 Allergies JENARO 01/07/25 In Process 20:30 Ondansetron Hcl [facility]A 01/07/25 Logged (Zofran) 20:30 Morphine Sulfate PHA 01/07/25 Logged Injection 20:30 Notify Md Of Changes [facility] 01/07/25 In Process From Base 20:30 Oxygen By Nasal RT 01/07/25 Transmitted Cannula 20:30 Glucose Blood [facility] 01/07/25 Logged (Accu-Chek Comfort 22:00 Insulin R (Human) PHA 01/07/25 Logged (Insulin R) 22:00 Insulin R (Human) PHA 01/08/25 Logged (Insulin R) 07:00 Dextrose 50% Syringe PHA 01/07/25 Logged 20:30 Metronidazole PHA 01/07/25 Logged 500mg/100ml (Flagyl 22:00 Date of Service: Jan 07, 2025 Billing Provider: GAILLEO BROWN MD Common Visit Codes: [id number] INP/OBS CARE (HIGH) GALILEO BROWN MD Jan 07, 2025 20:40
[2025-01-07] MEDS: SODIUM CHLORIDE 0.9% 1,000 ML IV ONE (20:45)
[2025-01-07] MEDS: metroNIDAZOLE 500MG/100ML 100 ML IV ONE (20:45)
[2025-01-07] MEDS: ASPirin-EC 325mg tab PO ONE (20:45)
[2025-01-07] MEDS: ONDANSETRON HCL 4 MG/2 ML VIAL IV ONE (20:45)
[2025-01-07] MEDS: fentaNYL CITRATE 100 MCG/2 ML VL IV ONE (20:47)
[2025-01-07] MEDS: LORazepam 0.5 MG TAB PO PRN (21:35)
[2025-01-07] MEDS: CIPROFLOXACIN 400MG/200ML 200 ML IV ONE (21:49)
[2025-01-07 22:20] VITALS: PULSE 94; RESP 17; O2SAT 94
[2025-01-07] MEDS: InsuLIN REG 1unit/0.01ml Soln (100units/ml) SC SCH (22:24)
[2025-01-07] MEDS: ACCU-CHEK COMFORT CURVE STRIP VI SCH (22:25)
[2025-01-07] MEDS: metroNIDAZOLE 500MG/100ML 100 ML IV SCH (22:26)
[2025-01-07] MEDS: SODIUM CHLORIDE 0.9% 1,000 ML IV SCH (22:30)
[2025-01-08] MEDS: MORPHINE SULFATE INJ 2 MG/ml SYRG IV PRN (00:42)
[2025-01-08 01:01] VITALS: BP 110/66; PULSE 94; RESP 17; TEMP 98.3; O2SAT 94
[2025-01-08 05:00] VITALS: BP 105/58; PULSE 85; RESP 18; TEMP 98.2; O2SAT 95
[2025-01-08] MEDS: InsuLIN REG 1unit/0.01ml Soln (100units/ml) SC SCH (06:33)
[2025-01-08 09:00] VITALS: BP 99/53; PULSE 79; RESP 20; TEMP 98.1; O2SAT 94
--- NOTE | 2025-01-08 12:35 | DVHPN2 ---
Subjective The patient is seen and examined at bedside. The patient is still have diarrhea but no bloody Reviewed: Care Plan, H&P, Labs, Medications, Previous Orders, Radiology Changes from previous H/P or p: No Changes Eyes: No Pain, No Vision change, No Conjunctivae inflammation, No Eyelid inflammation, No Other, No Redness ENT: No Ear pain, No Ear discharge, No Nose pain, No Nose discharge, No Nose congestion, No Mouth pain, No Mouth swelling, No Throat pain, No Throat swelling, No Other Cardiovascular: No Chest Pain, No Palpitations, No Orthopnea, No Paroxysmal Noc. Dyspnea, No Edema, No Lt Headedness, No Other Respiratory: No Cough, No Dry, No Shortness of breath, No SOB with excertion, No Wheezing, No Hemoptysis, No Pleuritic Pain, No Sputum, No Other Gastrointestinal: Nausea, Vomiting, Abdominal Pain, Diarrhea Genitourinary: No Dysuria, No Frequency, No Incontinence, No Hematuria, No Retention, No Other Musculoskeletal: No other, No neck pain, No shoulder pain, No arm pain, No back pain, No hand pain, No leg pain, No foot pain Skin: No Rash, No Lesions, No Jaundice, No Bruising, No Other Objective Vitals Vital Signs Date Time Temp Pulse Resp B/P (MAP) Pulse Ox O2 Delivery O2 Flow Rate FiO2 01/08/25 12:12 79 20 99/53 01/08/25 05:00 98.2 95 98.2 01/07/25 22:20 Room Air* 0 21 Intake/Output Intake and Output 01/08/25 07:00 Intake Total 1650 ml Balance 1650 ml Intake Oral 0 ml IV Total 1650 ml General Appearance: Alert, Oriented X3, Cooperative, No acute distress HEENT: Atraumatic, PERRLA, EOMI, Mucous membr. moist/pink Neck: Full Range of Motion Lungs: Clear to auscultation, Normal air movement Cardiovascular: Regular rate, Normal S1, Normal S2, No murmurs, Rubs Abdomen: Normal bowel sounds, Soft, No tenderness Neuro: Cranial nerves 3-12 NL Psych/Mental Status: Mental status NL Medications Current Medications Medications Dose Ordered Sig/Adina Route Start Time Stop Time Status Last Admin Dose Admin Sodium Chloride 1,000 ml @ 60 mls/hr [id number] IV 01/07/25 20:30 01/07/25 22:30 60 MLS/HR Lorazepam 0.5 mg Q6HP PRN PO 01/07/25 20:30 01/07/25 21:35 0.5 MG Docusate Sodium 100 mg BIDPRN PRN PO 01/07/25 20:30 Acetaminophen 650 mg Q6HP PRN PO 01/07/25 20:30 Temazepam 15 mg QHSP PRN PO 01/07/25 20:30 Ondansetron HCl 4 mg Q4HP PRN IV 01/07/25 20:30 Morphine Sulfate 1 mg Q4HPRN PRN IV 01/07/25 20:30 01/08/25 12:12 1 MG Diagnostic Test (Pha) 1 strip ACHS 01/07/25 22:00 01/08/25 11:30 1 STRIP Insulin Human Regular HS SC 01/07/25 22:00 01/07/25 22:24 3 UNITS Insulin Human Regular AC SC 01/08/25 07:00 Dextrose 50 ml UD PRN IV 01/07/25 20:30 Metronidazole 100 ml @ 100 mls/hr Q8HR IV 01/07/25 22:00 01/08/25 05:50 100 MLS/HR Laboratory Results Laboratory Tests 01/07/25 18:38 Chemistry Test 01/07/25 18:38 Albumin 5.5 g/dL (3.2-4.8) H Calcium Level 10.9 mg/dL (8.7-10.4) H Total Protein 8.4 g/dL (5.7-8.2) H Lipid panel Test 01/07/25 18:38 Lipase 26 U/L (12-53) LFT Test 01/07/25 18:38 Alanine Aminotransferase (ALT) 18 U/L (7-40) Alkaline Phosphatase 118 U/L (46-116) H Aspartate Amino Transferase (AST) 22 U/L (13-40) Total Bilirubin 0.6 mg/dL (0.2-1.0) Urinalysis Test 01/07/25 18:19 Urine Color Light-yellow (Yellow) Urine Clarity Clear (Clear) Urine pH 5.5 (5.0-9.0) Urine Specific [place] 1.020 (1.001-1.035) Urine Protein Trace (Negative) H Urine Ketones 2+ (Negative) H Urine Blood 2+ /uL (Negative) H Urine Nitrite Negative (Negative) Urine Bilirubin Negative (Negative) Urine Urobilinogen Normal mg/dL (Negative) Urine Leukocyte Esterase 3+ /uL (Negative) Urine RBC 10 /hpf (0 - 4) Urine Microscopic WBC 6 /HPF (0-5) H Urine Squamous Epithelial Cells Few /hpf (<5) Urine Bacteria Few /hpf (None Seen) H Urine Mucus Few (None Seen) Urine Glucose 3+ mg/dL (Normal) H Labs and/or images reviewed: Labs reviewed by me Assessment/Plan Assessment/Plan suspected colitis possible infectious with elevated white count Continuing current management with IV antibiotic. We will monitor white cell count. Continuing with Zofran p.r.n. for nausea vomiting Continuing with pain medication. Waiting for C diff tests. This medical document was created using an electronic medical record system with [employer] direct computerized dictation system. Although this document has been carefully reviewed, there may still be some phonetic and typographical errors. These areas are purely typographical due to imperfections of the software programs, and do not reflect any compromise in the patient's medical care. Plan discussed with: Patient Date of Service: Jan 08, 2025 Billing Provider: BAKARI STUBBS MD Common Visit Codes: [id number] INP/OBS CARE(HIGH) BAKARI STUBBS MD Jan 08, 2025 12:35
[2025-01-08 13:00] VITALS: BP 114/69; PULSE 80; RESP 20; TEMP 98.4; O2SAT 94
[2025-01-08 17:00] VITALS: BP 100/59; PULSE 75; RESP 18; TEMP 98.3; O2SAT 95
[2025-01-08 21:00] VITALS: BP 108/58; PULSE 65; RESP 18; TEMP 98.1; O2SAT 95
[2025-01-09] VITALS (7 sets, daily range): BP systolic 102–128; BP diastolic 52–74; PULSE 64–74; RESP 18–20; TEMP 97.1–98.5; O2SAT 95–97
--- NOTE | 2025-01-09 21:17 | DVHPN2 ---
Subjective The patient is seen and examined at bedside. The patient is still have diarrhea but no bloody Reviewed: Care Plan, H&P, Labs, Medications, Previous Orders, Radiology Changes from previous H/P or p: No Changes Eyes: No Pain, No Vision change, No Conjunctivae inflammation, No Eyelid inflammation, No Other, No Redness ENT: No Ear pain, No Ear discharge, No Nose pain, No Nose discharge, No Nose congestion, No Mouth pain, No Mouth swelling, No Throat pain, No Throat swelling, No Other Cardiovascular: No Chest Pain, No Palpitations, No Orthopnea, No Paroxysmal Noc. Dyspnea, No Edema, No Lt Headedness, No Other Respiratory: No Cough, No Dry, No Shortness of breath, No SOB with excertion, No Wheezing, No Hemoptysis, No Pleuritic Pain, No Sputum, No Other Gastrointestinal: Nausea, Vomiting, Abdominal Pain, Diarrhea Genitourinary: No Dysuria, No Frequency, No Incontinence, No Hematuria, No Retention, No Other Musculoskeletal: No other, No neck pain, No shoulder pain, No arm pain, No back pain, No hand pain, No leg pain, No foot pain Skin: No Rash, No Lesions, No Jaundice, No Bruising, No Other Objective Vitals Vital Signs Date Time Temp Pulse Resp B/P (MAP) Pulse Ox O2 Delivery O2 Flow Rate FiO2 01/09/25 18:36 60 18 137/67 01/09/25 17:00 98.3 96 98.3 01/09/25 08:00 Room Air* 0 21 Intake/Output Intake and Output 01/09/25 07:00 Intake Total 100 ml Balance 100 ml Intake Oral 0 ml IV Total 100 ml # Voids 4 General Appearance: Alert, Oriented X3, Cooperative, No acute distress HEENT: Atraumatic, PERRLA, EOMI, Mucous membr. moist/pink Neck: Full Range of Motion Lungs: Clear to auscultation, Normal air movement Cardiovascular: Regular rate, Normal S1, Normal S2, No murmurs, Rubs Abdomen: Normal bowel sounds, Soft, No tenderness Neuro: Cranial nerves 3-12 NL Psych/Mental Status: Mental status NL Medications Current Medications Medications Dose Ordered Sig/Adina Route Start Time Stop Time Status Last Admin Dose Admin Sodium Chloride 1,000 ml @ 60 mls/hr [id number] IV 01/07/25 20:30 01/08/25 13:16 60 MLS/HR Lorazepam 0.5 mg Q6HP PRN PO 01/07/25 20:30 01/07/25 21:35 0.5 MG Docusate Sodium 100 mg BIDPRN PRN PO 01/07/25 20:30 Acetaminophen 650 mg Q6HP PRN PO 01/07/25 20:30 Temazepam 15 mg QHSP PRN PO 01/07/25 20:30 Ondansetron HCl 4 mg Q4HP PRN IV 01/07/25 20:30 Morphine Sulfate 1 mg Q4HPRN PRN IV 01/07/25 20:30 01/09/25 18:06 1 MG Metronidazole 100 ml @ 100 mls/hr Q8HR IV 01/07/25 22:00 01/09/25 13:59 100 MLS/HR Laboratory Results Laboratory Tests 01/07/25 18:38 Urinalysis Test 01/07/25 18:19 Urine Color Light-yellow (Yellow) Urine Clarity Clear (Clear) Urine pH 5.5 (5.0-9.0) Urine Specific [place] 1.020 (1.001-1.035) Urine Protein Trace (Negative) H Urine Ketones 2+ (Negative) H Urine Blood 2+ /uL (Negative) H Urine Nitrite Negative (Negative) Urine Bilirubin Negative (Negative) Urine Urobilinogen Normal mg/dL (Negative) Urine Leukocyte Esterase 3+ /uL (Negative) Urine RBC 10 /hpf (0 - 4) Urine Microscopic WBC 6 /HPF (0-5) H Urine Squamous Epithelial Cells Few /hpf (<5) Urine Bacteria Few /hpf (None Seen) H Urine Mucus Few (None Seen) Urine Glucose 3+ mg/dL (Normal) H Microbiology Microbiology Date/Time Source Procedure Growth Status 01/07/25 19:45 Blood Blood Culture - Preliminary NO GROWTH AFTER 48 HOURS OF INCUBATION. Resulted Labs and/or images reviewed: Labs reviewed by me Assessment/Plan Assessment/Plan suspected colitis possible infectious with elevated white count Continuing current management with IV antibiotic. We will monitor white cell count. Continuing with Zofran p.r.n. for nausea vomiting Continuing with pain medication. Waiting for C diff tests. Advance diet to regular This medical document was created using an electronic medical record system with [employer] direct computerized dictation system. Although this document has been carefully reviewed, there may still be some phonetic and typographical errors. These areas are purely typographical due to imperfections of the software programs, and do not reflect any compromise in the patient's medical care. Plan discussed with: Patient My Orders Orders - BAKARI STUBBS MD Procedure Category Date Status Time Regular Diet DIET 01/09/25 Transmitted Lunch Date of Service: Jan 09, 2025 Billing Provider: BAKARI STUBBS MD Common Visit Codes: [id number] INP/OBS CARE(HIGH) BAKARI STUBBS MD Jan 09, 2025 21:17
[2025-01-10] VITALS (7 sets, daily range): BP systolic 117–138; BP diastolic 66–91; PULSE 57–95; RESP 16–20; TEMP 96.4–98.8; O2SAT 93–98
--- NOTE | 2025-01-10 11:20 | DVHPN2 ---
Subjective The patient is seen and examined at bedside. The patient is still have diarrhea but no bloody Reviewed: Care Plan, H&P, Labs, Medications, Previous Orders, Radiology Changes from previous H/P or p: No Changes Eyes: No Pain, No Vision change, No Conjunctivae inflammation, No Eyelid inflammation, No Other, No Redness ENT: No Ear pain, No Ear discharge, No Nose pain, No Nose discharge, No Nose congestion, No Mouth pain, No Mouth swelling, No Throat pain, No Throat swelling, No Other Cardiovascular: No Chest Pain, No Palpitations, No Orthopnea, No Paroxysmal Noc. Dyspnea, No Edema, No Lt Headedness, No Other Respiratory: No Cough, No Dry, No Shortness of breath, No SOB with excertion, No Wheezing, No Hemoptysis, No Pleuritic Pain, No Sputum, No Other Gastrointestinal: Nausea, Vomiting, Abdominal Pain, Diarrhea Genitourinary: No Dysuria, No Frequency, No Incontinence, No Hematuria, No Retention, No Other Musculoskeletal: No other, No neck pain, No shoulder pain, No arm pain, No back pain, No hand pain, No leg pain, No foot pain Skin: No Rash, No Lesions, No Jaundice, No Bruising, No Other Objective Vitals Vital Signs Date Time Temp Pulse Resp B/P (MAP) Pulse Ox O2 Delivery O2 Flow Rate FiO2 01/10/25 10:23 62 17 138/74 01/10/25 08:30 Room Air* 0 21 01/10/25 05:00 96.8 95 96.8 Intake/Output Intake and Output 01/10/25 07:00 Intake Total 2450 ml Output Total 2 ml Balance 2448 ml Intake Oral 1550 ml IV Total 900 ml Output Stool Total 2 ml # Voids 5 General Appearance: Alert, Oriented X3, Cooperative, No acute distress HEENT: Atraumatic, PERRLA, EOMI, Mucous membr. moist/pink Neck: Full Range of Motion Lungs: Clear to auscultation, Normal air movement Cardiovascular: Regular rate, Normal S1, Normal S2, No murmurs, Rubs Abdomen: Normal bowel sounds, Soft, No tenderness Neuro: Cranial nerves 3-12 NL Psych/Mental Status: Mental status NL Medications Current Medications Medications Dose Ordered Sig/Adina Route Start Time Stop Time Status Last Admin Dose Admin Sodium Chloride 1,000 ml @ 60 mls/hr [id number] IV 4/25/25 20:30 01/10/25 05:21 60 MLS/HR Lorazepam 0.5 mg Q6HP PRN PO 01/07/25 20:30 01/07/25 21:35 0.5 MG Docusate Sodium 100 mg BIDPRN PRN PO 01/07/25 20:30 Acetaminophen 650 mg Q6HP PRN PO 01/07/25 20:30 Temazepam 15 mg QHSP PRN PO 01/07/25 20:30 Ondansetron HCl 4 mg Q4HP PRN IV 01/07/25 20:30 Morphine Sulfate 1 mg Q4HPRN PRN IV 01/07/25 20:30 01/10/25 10:23 1 MG Metronidazole 100 ml @ 100 mls/hr Q8HR IV 01/07/25 22:00 01/10/25 05:19 100 MLS/HR Laboratory Results Laboratory Tests 01/07/25 18:38 Urinalysis Test 01/07/25 18:19 Urine Color Light-yellow (Yellow) Urine Clarity Clear (Clear) Urine pH 5.5 (5.0-9.0) Urine Specific [place] 1.020 (1.001-1.035) Urine Protein Trace (Negative) H Urine Ketones 2+ (Negative) H Urine Blood 2+ /uL (Negative) H Urine Nitrite Negative (Negative) Urine Bilirubin Negative (Negative) Urine Urobilinogen Normal mg/dL (Negative) Urine Leukocyte Esterase 3+ /uL (Negative) Urine RBC 10 /hpf (0 - 4) Urine Microscopic WBC 6 /HPF (0-5) H Urine Squamous Epithelial Cells Few /hpf (<5) Urine Bacteria Few /hpf (None Seen) H Urine Mucus Few (None Seen) Urine Glucose 3+ mg/dL (Normal) H Microbiology Microbiology Date/Time Source Procedure Growth Status 01/09/25 14:10 Stool Stool Culture - Preliminary Resulted 01/09/25 14:10 Stool Shiga Toxin I & II Pending Resulted 01/09/25 14:10 Stool Clostridium difficile Toxin Assay Pending Resulted 01/07/25 19:45 Blood Blood Culture - Preliminary NO GROWTH AFTER 48 HOURS OF INCUBATION. Resulted Labs and/or images reviewed: Labs reviewed by me Assessment/Plan Assessment/Plan suspected colitis possible infectious with elevated white count Continuing current management with IV antibiotic. We will monitor white cell count. Continuing with Zofran p.r.n. for nausea vomiting Continuing with pain medication. Waiting for C diff tests. Advance diet to regular This medical document was created using an electronic medical record system with [employer] computerized dictation system. Although this document has been carefully reviewed, there may still be some phonetic and typographical errors. These areas are purely typographical due to imperfections of the software programs, and do not reflect any compromise in the patient's medical care. Plan discussed with: Patient My Orders Orders - BAKARI STUBBS MD Procedure Category Date Status Time Regular Diet DIET 01/09/25 Transmitted Lunch Date of Service: Jan 10, 2025 Billing Provider: BAKARI STUBBS MD Common Visit Codes: [id number] INP/OBS CARE(HIGH) BAKARI STUBBS MD Jan 10, 2025 11:20
[2025-01-11] VITALS (8 sets, daily range): BP systolic 110–157; BP diastolic 66–77; PULSE 60–83; RESP 15–20; TEMP 98.1–98.8; O2SAT 94–97
--- NOTE | 2025-01-11 22:16 | DVHPN2 ---
Subjective The patient is seen and examined at bedside. The patient is still have little diarrhea but no bloody Reviewed: Care Plan, H&P, Labs, Medications, Previous Orders, Radiology Changes from previous H/P or p: No Changes Eyes: No Pain, No Vision change, No Conjunctivae inflammation, No Eyelid inflammation, No Other, No Redness ENT: No Ear pain, No Ear discharge, No Nose pain, No Nose discharge, No Nose congestion, No Mouth pain, No Mouth swelling, No Throat pain, No Throat swelling, No Other Cardiovascular: No Chest Pain, No Palpitations, No Orthopnea, No Paroxysmal Noc. Dyspnea, No Edema, No Lt Headedness, No Other Respiratory: No Cough, No Dry, No Shortness of breath, No SOB with excertion, No Wheezing, No Hemoptysis, No Pleuritic Pain, No Sputum, No Other Gastrointestinal: Nausea, Vomiting, Abdominal Pain, Diarrhea Genitourinary: No Dysuria, No Frequency, No Incontinence, No Hematuria, No Retention, No Other Musculoskeletal: No other, No neck pain, No shoulder pain, No arm pain, No back pain, No hand pain, No leg pain, No foot pain Skin: No Rash, No Lesions, No Jaundice, No Bruising, No Other Objective Vitals Vital Signs Date Time Temp Pulse Resp B/P (MAP) Pulse Ox O2 Delivery O2 Flow Rate FiO2 01/11/25 21:00 98.1 83 20 157/69 (98) 94 98.1 01/11/25 07:39 Room Air* 0 21 Intake/Output Intake and Output 01/11/25 06:59 Intake Total 2460 ml Balance 2460 ml Intake Oral 1200 ml IV Total 1260 ml # Voids 6 General Appearance: Alert, Oriented X3, Cooperative, No acute distress HEENT: Atraumatic, PERRLA, EOMI, Mucous membr. moist/pink Neck: Full Range of Motion Lungs: Clear to auscultation, Normal air movement Cardiovascular: Regular rate, Normal S1, Normal S2, No murmurs, Rubs Abdomen: Normal bowel sounds, Soft, No tenderness Neuro: Cranial nerves 3-12 NL Psych/Mental Status: Mental status NL Medications Current Medications Medications Dose Ordered Sig/Adina Route Start Time Stop Time Status Last Admin Dose Admin Sodium Chloride 1,000 ml @ 60 mls/hr [id number] IV 01/07/25 20:30 01/10/25 05:21 60 MLS/HR Lorazepam 0.5 mg Q6HP PRN PO 01/07/25 20:30 01/07/25 21:35 0.5 MG Docusate Sodium 100 mg BIDPRN PRN PO 01/07/25 20:30 Acetaminophen 650 mg Q6HP PRN PO 01/07/25 20:30 Temazepam 15 mg QHSP PRN PO 01/07/25 20:30 Ondansetron HCl 4 mg Q4HP PRN IV 01/07/25 20:30 Morphine Sulfate 1 mg Q4HPRN PRN IV 01/07/25 20:30 01/11/25 17:21 1 MG Metronidazole 100 ml @ 100 mls/hr Q8HR IV 01/07/25 22:00 01/11/25 21:00 100 MLS/HR Laboratory Results Laboratory Tests 01/07/25 18:38 Urinalysis Test 01/07/25 18:19 Urine Color Light-yellow (Yellow) Urine Clarity Clear (Clear) Urine pH 5.5 (5.0-9.0) Urine Specific [place] 1.020 (1.001-1.035) Urine Protein Trace (Negative) H Urine Ketones 2+ (Negative) H Urine Blood 2+ /uL (Negative) H Urine Nitrite Negative (Negative) Urine Bilirubin Negative (Negative) Urine Urobilinogen Normal mg/dL (Negative) Urine Leukocyte Esterase 3+ /uL (Negative) Urine RBC 10 /hpf (0 - 4) Urine Microscopic WBC 6 /HPF (0-5) H Urine Squamous Epithelial Cells Few /hpf (<5) Urine Bacteria Few /hpf (None Seen) H Urine Mucus Few (None Seen) Urine Glucose 3+ mg/dL (Normal) H Microbiology Microbiology Date/Time Source Procedure Growth Status 01/09/25 14:10 Stool Stool Culture - Preliminary Resulted 01/09/25 14:10 Stool Shiga Toxin I & II - Final Resulted 01/09/25 14:10 Stool Clostridium difficile Toxin Assay - Final Resulted 01/07/25 19:45 Blood Blood Culture - Preliminary NO GROWTH AFTER 72 HOURS OF INCUBATION. Resulted Labs and/or images reviewed: Labs reviewed by me Assessment/Plan Assessment/Plan suspected colitis possible infectious with elevated white count Continuing current management with IV antibiotic. We will monitor white cell count. Continuing with Zofran p.r.n. for nausea vomiting Continuing with pain medication. Waiting for C diff tests. Advance diet to regular This medical document was created using an electronic medical record system with [employer] direct computerized dictation system. Although this document has been carefully reviewed, there may still be some phonetic and typographical errors. These areas are purely typographical due to imperfections of the software programs, and do not reflect any compromise in the patient's medical care. Plan discussed with: Patient Date of Service: Jan 11, 2025 Billing Provider: BAKARI STUBBS MD Common Visit Codes: [id number] INP/OBS CARE(HIGH) BAKARI STUBBS MD Jan 11, 2025 22:16
[2025-01-12 01:00] VITALS: BP 131/71; PULSE 63; RESP 20; TEMP 98.6; O2SAT 93
[2025-01-12 05:00] VITALS: BP 117/71; PULSE 68; RESP 20; TEMP 98.6; O2SAT 96
[2025-01-12 08:03] VITALS: RESP 18; O2SAT 97
[2025-01-12 08:36] VITALS: BP 151/75; PULSE 60; RESP 18; TEMP 97.6; O2SAT 95
[2025-01-12] MEDS ORDERED: LEVO500T91 PO (11:35)
[2025-01-12] MEDS ORDERED: METR-344 PO (11:35)
--- NOTE | 2025-01-12 11:38 | DVHDS2 ---
Discharge Summary Date of Admission Jan 07, 2025 at 20:30 Date of Discharge: Jan 12, 2025 Admitting Diagnosis suspected colitis possible infectious with elevated white count Intractable nausea and vomiting Labs/Diagnostic Data: Laboratory Results Test 01/09/25 09:06 01/09/25 06:08 01/07/25 21:21 01/07/25 18:38 Stool Occult Blood Neg x1 (Negative) Stool Occult Blood Sample #3 (Negative) Stool for White Cells None seen POC Glucose 80 mg/dl (70-106) Lactic Acid Level 3.1 mmol/L (0.4-2.0) White Blood Count 18.5 10^3/uL (4.4-10.8) Red Blood Count 5.35 10^6/uL (4.0-5.20) Hemoglobin 15.5 g/dL (12.2-16.2) Hematocrit 45.5 % (36.0-46.0) Mean Corpuscular Volume 85.1 fL (80.0-100.0) Mean Corpuscular Hemoglobin 29.1 pg (28.0-32.0) Mean Corpuscular Hemoglobin Concent 34.2 g/dL (32.0-36.0) Red Cell Distribution Width 13.8 % (11.8-14.3) Platelet Count 450 10^3/uL (140-450) Mean Platelet Volume 7.3 fL (6.9-10.8) Neutrophils (%) (Auto) 90.1 % (37.0-80.0) Lymphocytes (%) (Auto) 6.0 % (10.0-50.0) Monocytes (%) (Auto) 3.5 % (0.0-12.0) Eosinophils (%) (Auto) 0.0 % (0.0-7.0) Basophils (%) (Auto) 0.4 % (0.0-2.0) Neutrophils # (Auto) 16.7 10 ^3/uL (1.6-8.6) Lymphocytes # (Auto) 1.1 10 ^3/uL (0.4-5.4) Monocytes # (Auto) 0.6 10 ^3/uL (0-1.3) Eosinophils # (Auto) 0 10 ^3/uL (0-0.8) Basophils # (Auto) 0.1 10 ^3/uL (0-0.2) Nucleated Red Blood Cells 0.1 % Sodium Level 145 mmol/L (136-145) Potassium Level 3.1 mmol/L (3.5-5.1) Chloride Level 114 mmol/L (98-107) Carbon Dioxide Level 20 mmol/L (20-31) Anion Gap 11 (5-15) Blood Urea Nitrogen 16 mg/dL (9-23) Creatinine 1.09 mg/dL (0.550-1.02) Glomerular Filtration Rate Calc 58 mL/min (>90) BUN/Creatinine Ratio 14.7 (10.0-20.0) Serum Glucose 190 mg/dL (74-106) Calcium Level 10.9 mg/dL (8.7-10.4) Total Bilirubin 0.6 mg/dL (0.2-1.0) Aspartate Amino Transferase (AST) 22 U/L (13-40) Alanine Aminotransferase (ALT) 18 U/L (7-40) Alkaline Phosphatase 118 U/L (46-116) Troponin I High Sensitivity 166 ng/L (</=34) Total Protein 8.4 g/dL (5.7-8.2) Albumin 5.5 g/dL (3.2-4.8) Lipase 26 U/L (12-53) Test 01/07/25 18:19 Urine Color Light-yellow (Yellow) Urine Clarity Clear (Clear) Urine pH 5.5 (5.0-9.0) Urine Specific [place] 1.020 (1.001-1.035) Urine Protein Trace (Negative) Urine Ketones 2+ (Negative) Urine Blood 2+ /uL (Negative) Urine Nitrite Negative (Negative) Urine Bilirubin Negative (Negative) Urine Urobilinogen Normal mg/dL (Negative) Urine Leukocyte Esterase 3+ /uL (Negative) Urine RBC 10 /hpf (0 - 4) Urine Microscopic WBC 6 /HPF (0-5) Urine Squamous Epithelial Cells Few /hpf (<5) Urine Bacteria Few /hpf (None Seen) Urine Mucus Few (None Seen) Urine Glucose 3+ mg/dL (Normal) Other Laboratory Tests 01/07/25 18:38 Brief Hx & Hospital Course: This is a 59 years old female came into emergency department because of abdominal pain, nausea, vomiting. She said her abdominal pain is on the right side radiating to her flank. Patient had a history of complicated UTI and sepsis in the past. Her lactic acid level was 3.1. The troponin level is elevated at the 1st however she had no complain of any chest pain or discomfort. The patient had a CT scan abdomen pelvis done in the ER showed possible colitis. Patient had intractable nausea and vomiting and diarrhea for couple days. Her diarrhea is not bloody and is just food material and liquid. The patient was put on IV antibiotic with ciprofloxacin and Flagyl. The patient stool culture is negative. The patient C diff culture showed negative for C diff colitis. The patient able to keep the food down today. No nausea or vomiting. No more diarrhea. So I am going to discharge her home. Advised her to follow up with primary care physician 1-2 weeks. Follow up with GI specialist as outpatient per schedule for colonoscopy. Activity as tolerated. Diet per home diet. Physical exam: HEENT: Normocephalic atraumatic pupils equal react to light and accommodation. Extraocular muscles intact, conjunctiva pink, oropharynx moist, no thrush, no exudate. Lymphatic: No lymphadenopathy Cardiovascular exam: S1, S2 was heard. No murmurs, rubs, gallops Lung: Clear on auscultation bilaterally, no wheeze, rale, rhonchi. GI: Abdominal soft, nondistended, nontenderness, positive bowel sounds. Extremity: No crepitus, cyanosis, edema. Pedal pulses present bilateral. Full range of motion. Skin: Normal turgor, no rash. Psych: Alert, oriented x3. Neurology: No focal deficits, cranial nerve II to XII grossly intact. This medical document was created using an electronic medical record system with [employer] direct computerized dictation system. Although this document has been carefully reviewed, there may still be some phonetic and typographical errors. These areas are purely typographical due to imperfections of the software programs, and do not reflect any compromise in the patient's medical care. Condition at Discharge: Stable Final Diagnosis/Problems List Acute colitis with diarrhea, C diff colitis has been ruled out. Leukocytosis Intractable nausea and vomiting Discharge Disposition: Home Discharge Instruct/Medications Diet: Cardiac 2g Na,low cholest Activity: No Restrictions, As Tolerated Follow Up/Referral: pcp 1-2 weeks Medications: Resume home meds Levaquin 500mg PO daily Flagyl 500mg tid. Discharge Statement: "Patient was advised to return to the ER or call 911 if any headaches, dizziness, shortness of breath, chest pain, abdominal pain, bleeding, fevers, or worsening of medical condition. Patient was counseled about treatment plan, medications, possible side effects, patientverbalized understanding. All questions were answered to the best of my ability. This discharge took greater then 30 minutes in planning, reviewing documentation, counseling the patient, and discussing with other team members." ASSESSMENT ASSESSMENT Assessment colitis Date of Service: Jan 12, 2025 Billing Provider: BAKARI STUBBS MD Common Visit Codes: 20299-MFS/OBS DISCH DAY >30min BAKARI STUBBS MD Jan 12, 2025 11:37
[2025-01-12 13:00] VITALS: BP 141/69; PULSE 67; RESP 18; TEMP 97.4; O2SAT 96
[2025-01-12 13:52] VITALS: TEMP 36.3
== END 2025-01-12 15:45 | disposition home or self-care (01) | DRG 248 ==
LOC: ER 17:54 → EDBD 17:54 → OVERFLOW 20:30 → EAST 22:05
PROVIDERS: ADMIT Internal Medicine; ATTEND Internal Medicine
DX: A04.9 Bacterial intestinal infection, unspecified (principal); E87.20 Acidosis, unspecified; F17.210 Nicotine dependence, cigarettes, uncomplicated; F32.A Depression, unspecified; F41.9 Anxiety disorder, unspecified; N39.0 Urinary tract infection, site not specified; Z90.710 Acquired absence of both cervix and uterus; Z79.899 Other long term (current) drug therapy
CPT/HCPCS: 36415; 74176; 80053; 81001; 82270; 82962; 83605; 83690; 84484; 85025; 85048; 87040; 87045; 96361; 96374; 99291; G0378; J1815; J2405; J3490

== ENCOUNTER 2025-03-14 09:40 | Inpatient (IN) | payer MEDICAID ==
[~2025-03-14] VITALS: Ht 152.4 cm; Wt 58.2 kg
[~2025-03-14 09:40] MED LIST changes: +LEVO500T91 PO; +METR-344 PO
--- NOTE | 2025-03-14 10:50 | ED.PDOC ---
History of Present Illness HPI Comments 59-year-old female presents to the ER with prior medical history anxiety, depression, colitis, UTI; surgical history of hysterectomy, colonoscopy, and a chief complaint of flank pain. Patient reports on having left-sided flank pain with N/V/D which all started yesterday. Patient is PCP is Dr. Bardales. Social history of tobacco and marijuana use. Denies chills, fever, SOB, CP. No other associated symptoms, modifiers, recent injuries or sick contacts present at this time. Chief Complaint: Abdominal Pain Time Seen by MD: 10:10 Primary Care Provider: Jeffy Reviewed Notes: Nurses Notes, Medications, Allergies Allergies: Coded Allergies: NO KNOWN ALLERGIES (Unverified , 07/01/22) Home Meds Active Scripts Metronidazole (Flagyl) 500 Mg Tab, 1 TAB PO TID, #21 TAB Prov:BAKARI STUBBS MD 01/12/25 Levofloxacin Hemihydrate (LEVAQUIN 500 MG) 500 Mg Tab, 1 TAB PO DAILY, #7 TAB Prov:BAKARI STUBBS MD 01/12/25 Reported Medications Sertraline HCl (Sertraline Hydrochloride) 150 Mg Cap, 150 MG PO, CAP 11/02/24 Mirtazapine (Mirtazapine Oral Disintegrating Tablet) 45 Mg Tab, 1 TAB PO 07/30/23 Information Source: Patient Mode of Arrival: Ambulatory Severity: Moderate Timing: Hours Duration: Since onset, Hours Prehospital treatment: None Past Medical History PAST MEDICAL HISTORY: Anxiety, Depression, UTI'S Past Medical History (Other): Colitis Surgical History: Hysterectomy Surgical History (Other): Colonoscopy CLIENT RESOLUTION SPECIALIST History: Endometriosis Family History Family History: Reviewed,noncontributory to illness, Unknown Social History Smoker: Cigarettes Alcohol: Denies ETOH Use Drugs: Marijuana Lives In: Home Constitutional: denies: chills, diaphoresis, fatigue, fever, malaise, sweats, weakness, others EENTM: denies: blurred vision, double vision, ear bleeding, ear discharge, ear drainage, ear pain, ear ringing, eye pain, eye redness, hearing loss, mouth pain, mouth swelling, nasal discharge, nose bleeding, nose congestion, nose pain, photophobia, tearing, throat pain, throat swelling, voice changes, others Respiratory: denies: cough, hemoptysis, orthopnea, SOB at rest, shortness of breath, SOB with excertion, stridor, wheezing, others Cardiovascular: denies: chest pain, dizzy spells, diaphoresis, Dyspnea on exertion, edema, irregular heart beat, left arm pain, lightheadedness, palpitations, PND, syncope, others Gastrointestinal: reports: diarrhea, nausea, vomiting; denies: abdomen distended, abdominal pain, blood streaked bowels, constipated, dysphagia, diffi culty swallowing, hematemesis, melena, poor appetite, poor fluid intake, rectal bleeding, rectal pain, others Genitourinary: reports: flank pain; denies: abnormal vagina bleeding, burning, dyspareunia, dysuria, frequency, hematuria, incontinence, pain, , vagina discharge, urgency, others Neurological: denies: dizziness, fainting, headache, left sided numbness, left sided weakness, numbness, paresthesia, pre-existing deficit, right sided numbness, right sided weakness, seizure, speech problems, tingling, tremors, weakness, others Musculoskeletal: denies: back pain, gout, joint pain, joint swelling, muscle pain, muscle stiffness, neck pain, others Integumetry: denies: bruises, change in color, change in hair/nails, dryness, laceration, lesions, lumps, rash, wounds, others Allergic/Immunocompromised: denies: Difficulty Healing, Frequent Infections, Hives, Itching, others Hematologic/Lymphatic: denies: anemia, blood clots, easy bleeding, easy bruising, swollen glands, others Endocrine: denies: excessive hunger, excessive sweating, excessive thirst, excessive urination, flushing, intolerance to cold, intolerance to heat, unexplained weight gain, unexplained weight loss, others Psychiatric: denies: anxiety, bipolar disorder, depression, hopeless, panic disorder, schizophrenia, sleepless, suicidal, others All Other Systems: Reviewed and Negative Physical Exam General Appearance: Moderate Distress, Normal HEENT: Normal ENT Inspection, Pharynx Normal, TMs Normal Neck: Full Range of Motion, Non-Tender, Normal, Normal Inspection Respiratory: Chest Non-Tender, Lungs Clear, No Accessory Muscle Use, No Respiratory Distress, Normal Breath Sounds Cardiovascular: No Edema, No JVD, No Murmur, No Gallop, Normal Peripheral Pulses, Regular Rate/Rhythm Breast Exam: Deferred Gastrointestinal: Diffuse, No Organomegaly, No Pulsatile Mass, Normal Bowel Sounds, Soft Genitalia: Deferred Pelvic: Deferred Rectal: Deferred Extremities: No calf tenderness, Normal capillary refill, Normal inspection, Normal range of motion, Non-tender, No pedal edema Musculoskeletal : Apperance: Normal Neurologic: Alert, clinical cytopathologist II-XII nml as Tested, No Motor Deficits, Normal Affect, Normal Mood, No Sensory Deficits Cerebellar Function: Normal Reflexes: Normal Skin: Dry, Normal Color, Warm Peripheral Pulses: 3+ Radial (R), 3+ Radial (L) Lymphatic: No Adenopathy Was a procedure done? Was a procedure done?: No Differential Dx Considerations may include: Colitis Electrolyte imbalance X-Ray, Labs, Meds, VS Vital Signs Date Time Temp Pulse Resp B/P (MAP) Pulse Ox O2 Delivery O2 Flow Rate FiO2 03/14/25 10:43 98.4 84 17 114/71 (85) 95 98.4 03/14/25 10:43 84 17 95 Room Air 03/14/25 09:57 98.0 81 17 131/75 (93) 96 98.0 Lab Test 03/14/25 11:33 03/14/25 09:55 Range/Units White Blood Count 17.4 H 4.4-10.8 10^3/uL Red Blood Count 4.99 4.0-5.20 10^6/uL Hemoglobin 14.6 12.2-16.2 g/dL Hematocrit 42.5 36.0-46.0 % Mean Corpuscular Volume 85.1 80.0-100.0 fL Mean Corpuscular Hemoglobin 29.2 28.0-32.0 pg Mean Corpuscular Hemoglobin Concent 34.4 32.0-36.0 g/dL Red Cell Distribution Width 14.4 H 11.8-14.3 % Platelet Count 355 140-450 10^3/uL Mean Platelet Volume 6.9 6.9-10.8 fL Neutrophils (%) (Auto) 81.9 H 37.0-80.0 % Lymphocytes (%) (Auto) 11.0 10.0-50.0 % Monocytes (%) (Auto) 6.5 0.0-12.0 % Eosinophils (%) (Auto) 0.1 0.0-7.0 % Basophils (%) (Auto) 0.5 0.0-2.0 % Neutrophils # (Auto) 14.3 H 1.6-8.6 10 ^3/uL Lymphocytes # (Auto) 1.9 0.4-5.4 10 ^3/uL Monocytes # (Auto) 1.1 0-1.3 10 ^3/uL Eosinophils # (Auto) 0 0-0.8 10 ^3/uL Basophils # (Auto) 0.1 0-0.2 10 ^3/uL Nucleated Red Blood Cells 0.0 % Sodium Level 140 136-145 mmol/L Potassium Level 3.9 3.5-5.1 mmol/L Chloride Level 105 98-107 mmol/L Carbon Dioxide Level 24 20-31 mmol/L Anion Gap 11 5-15 Blood Urea Nitrogen 18 9-23 mg/dL Creatinine 0.96 0.550-1.02 mg/dL Glomerular Filtration Rate Calc 67 >90 mL/min BUN/Creatinine Ratio 18.8 10.0-20.0 Serum Glucose 101 74-106 mg/dL Calcium Level 10.9 H 8.7-10.4 mg/dL Urine Color Yellow Yellow Urine Clarity Turbid H Clear Urine pH 5.5 5.0-9.0 Urine Specific [place] 1.023 1.001-1.035 Urine Protein Trace H Negative Urine Ketones 1+ H Negative Urine Blood 1+ H Negative /uL Urine Nitrite Negative Negative Urine Bilirubin Negative Negative Urine Urobilinogen Normal Negative mg/dL Urine Leukocyte Esterase 3+ Negative /uL Urine RBC 2 0 - 4 /hpf Urine Microscopic WBC 20 H 0-5 /HPF Urine Squamous Epithelial Cells Few <5 /hpf Urine Calcium Oxalate Crystals Few None Seen Urine Amorphous Crystals Few None Seen /hpf Urine Bacteria None seen None Seen /hpf Urine Mucus Few None Seen Urine Glucose Normal Normal mg/dL Patient alert. Complaining of abdominal pain. Vitals stable. Abdomen is soft pain CT scan of the abdomen reveals colitis pain Urinalysis shows UTI. WBC elevated. Sepsis protocol. Explained to the patient. Continue to monitor. Time of 1ST Reevaluation: 10:40 Reevaluation 1ST: Unchanged Patient Education/Counseling: Diagnosis, Treatment, Prognosis Family Education/Counseling: No Family Present SEPSIS Sepsis Screen Date sepsis recognized/suspect: Mar 14, 2025 Time Sepsis recognized/suspect: 0950 Recent Procedure: No On Antibiotic Therapy: No Respiratory Rate >20: No Heart Rate >90: No Temp<36 C (96.8 F) or >38.3 C: No SBP <90 or MAP <65 mmHG: No New Acute Mental Status Change: No Is the patient on CPAP, BIPAP,: No Physician Orders Ct Ab Pel Wo Con-No Oral Or Iv (03/14/25 10:19) Vital Signs Date Time Temp Pulse Resp B/P (MAP) Pulse Ox O2 Delivery O2 Flow Rate FiO2 03/14/25 10:43 98.4 84 17 114/71 (85) 95 98.4 03/14/25 10:43 84 17 95 Room Air 03/14/25 09:57 98.0 81 17 131/75 (93) 96 98.0 Laboratory Tests Test 03/14/25 11:33 White Blood Count 17.4 10^3/uL (4.4-10.8) H Departure 1 Departure Time of Disposition: 12:45 Impression: Primary Impression: Sepsis Qualified Codes: A41.9 - Sepsis, unspecified organism Additional Impressions: Non-specific colitis UTI (urinary tract infection) Qualified Codes: N30.01 - Acute cystitis with hematuria Disposition: ADMITTED INPATIENT Admit to: Med Surg Condition: Guarded Critical Care Note Critical Care Time?: Yes (45 min-critical care time only) Stability Stability form required: No Heart Score Heart Score: Heart Score Response (Comments) Value History N/A 0 EKG N/A 0 Age N/A 0 Risk Factors N/A 0 Troponin N/A 0 Total 0 I personally scribed for DESTIN CUELLO MD ([email or web address]) on 03/14/25 at 10:50. Electronically submitted by Toribio Reaves ([email or web address]). DESTIN CUELLO MD Mar 14, 2025 10:50
--- NOTE | 2025-03-14 11:00 | DVH ---
Exam: CT CT AB PEL WO CON-NO ORAL OR IV History: colitis Comparison Study: CT CT AB PEL WO CON-NO ORAL OR IV on DOS: 01/07/25, CT CT AB PEL WO CON-NO ORAL OR I V on DOS: 08/17/24, CT CT AB PEL WO CON-NO ORAL OR IV on DOS: 03/29/24, CT CT AB PEL WO CON-NO ORAL OR IV on DOS: 02/01/24, CT CT AB PEL WO CON-NO ORAL OR IV on DOS: 07/29/23 Technique: Multidetector spiral CT of the abdomen was performed from lung bases to pubic symphysis. I maging was performed without IV contrast. Axial, coronal and sagittal multiplanar reformats were obta ined from the axial data set by the technologist. Radiation Dose : 1. Abdomen/Pelvis: CTDIvol 10.66 mGy, DLP 531.66 mGy*cm. Findings: Evaluation of solid organs is limited due to lack of intravenous contrast use. Lung Bases: No acute or significant lung base finding. Normal heart size. No pleural or pericardial effusion. Liver: The liver is normal in size. No focal lesions. Gallbladder and Biliary Tree: Unremarkable Spleen: Unremarkable Pancreas: The pancreas is grossly normal in appearance. Adrenal Glands: Unremarkable Kidneys: Kidneys are grossly normal without calculi or hydronephrosis. Bladder: Grossly unremarkable for degree of distention. Bowel: The stomach is grossly normal in appearance. Mild bowel wall thickening of the colon. Divertic ulosis. Normal appendix is visualized in the right lower quadrant without findings of appendicitis. Ascites: Absent Lymphadenopathy: No mesenteric, retroperitoneal or periportal lymphadenopathy. Abdominal Wall and Mesentery: Unremarkable. Vasculature: The visualized abdominal aorta is normal in size and caliber. There is extensive athero sclerotic calcification of the aorta and its branches. Evaluation of abdominal and pelvic vessels is limited due to lack of intravenous contrast. Pelvic Organs: Unremarkable Musculoskeletal: No aggressive focal bony lesions, acute fractures or dislocation. IMPRESSION: Possible mild colitis.
[2025-03-14 11:39] LABS: Urine Amorphous Crystal FEW /hpf (None Seen); Urine Protein, UAD TRACE (Negative)
[2025-03-14 11:51] LABS: Hematocrit 42.5 % (36.0-46.0); Hemoglobin 14.6 g/dL (12.2-16.2); Mean Corpuscular Hemoglobin 29.2 pg (28.0-32.0); Mean Corpuscular Volume 85.1 fL (80.0-100.0); Nucleated Red Blood Cells % 0.0 %
[2025-03-14 12:02] LABS: Chloride 105 mmol/L (98-107); Potassium 3.9 mmol/L (3.5-5.1); Sodium 140 mmol/L (136-145)
[2025-03-14 12:03] LABS: Anion Gap 11 (5-15); Carbon Dioxide 24 mmol/L (20-31)
[2025-03-14 12:09] LABS: BUN/Creatinine Ratio 18.8 (10.0-20.0); Blood Urea Nitrogen 18 mg/dL (9-23); Glucose 101 mg/dL (74-106)
[2025-03-14 12:12] LABS: Calcium 10.9 mg/dL (8.7-10.4)
--- NOTE | 2025-03-14 13:16 | DVH ---
CHEST RADIOGRAPH Indication: sob Technique: Single frontal view of the chest was obtained Comparison: XY CHEST XRAY 1 VIEW on DOS: 03/29/24, CHEST PORTABLE on DOS: 02/26/22, CXRP on DOS: 2 FINDINGS: Lines and Tubes: None Lungs: No focal consolidation. Pleura: No effusion. No pneumothorax. Cardiomediastinal contours: Unremarkable Bones: No acute osseous abnormality. IMPRESSION: No acute cardiopulmonary disease.
[2025-03-14 13:20] LABS: INR 0.96 (0.9-1.15); Partial Thromboplastin Time 29.1 SEC (24.5-34.5); Prothrombin Time 10.2 sec (9.3-11.8)
[2025-03-14] MEDS: SODIUM CHLORIDE 0.9% 1,000 ML IV ONE (13:30)
[2025-03-14] MEDS: cefTRIAXone 1GM/50ML D5W 50 ML IV ONE (13:30)
[2025-03-14] MEDS: CEFEPIME 1GM/ 50ML 50 ML IV SCH (14:00)
[2025-03-14] MEDS: LACTATED RINGER'S 1,350 ML IV ONE (14:30)
[2025-03-14] MEDS: VANCOMYCIN 1GM/200ML PM 200 ML IV ONE (15:00)
[2025-03-14] MEDS ORDERED: ONDANSETRON HCL 4 MG/2 ML VIAL IV PRN (16:15)
[2025-03-14] MEDS ORDERED: ACETAMINOPHEN 325 MG TAB PO PRN (16:15)
[2025-03-14] MEDS ORDERED: DOCUSATE SOD 100 MG CAP PO PRN (16:15)
--- NOTE | 2025-03-14 16:47 | DVHHP2 ---
History of Present Illness Reason for Visit: Abdominal pain History of Present Illness Woody Negron is a 59-year-old female with past medical history of anxiety, depression, and colitis, who came to the hospital with complaints of abdominal pain. Patient states she began having abdominal pain, nausea, vomiting, and diarrhea yesterday. Her symptoms were not improving prompting her to come to the ER today. She states she has been able to keep water down today, but not food. She last ate Friday03/04/2025. Psych: Anxiety, Depression Past Surgical History: Hysterectomy Smoke: 1 pack per day ALCOHOL: none Drugs: Marijuana Lives: with Family Domestic Violence: Neg Review of Systems Constitutional: No: Fever, Chills, Sweats, Weakness, Malaise, Other Eyes: No: Pain, Vision change, Conjunctivae inflammation, Eyelid inflammation, Other, Redness ENT: No: Ear pain, Ear discharge, Nose pain, Nose discharge, Nose congestion, Mouth pain, Mouth swelling, Throat pain, Throat swelling, Other Respiratory: No: Cough, Dry, Shortness of breath, SOB with excertion, Wheezing, Hemoptysis, Pleuritic Pain, Sputum, Wheezing, Other Cardiovascular: No: Chest Pain, Palpitations, Orthopnea, Paroxysmal Noc. D yspnea, Edema, Lt Headedness, Other Gastrointestinal: Nausea, Vomiting, Abdominal Pain, Diarrhea; No: Constipation, Melena, Hematochezia, Other Genitourinary: No Dysuria, No Frequency, No Incontinence, No Hematuria, No Retention, No Other Musculoskeletal: No: other, neck pain, shoulder pain, arm pain, back pain, hand pain, leg pain, foot pain Skin: No: Rash, Lesions, Jaundice, Bruising, Other Neurological: No: Weakness, Numbness, Incoordination, Change in speech, Confusion, Seizures, Other Allergies: Coded Allergies: NO KNOWN ALLERGIES (Unverified , 07/01/22) Medications Current Medications Medications Dose Ordered Sig/Adina Route Start Time Stop Time Status Last Admin Dose Admin Cefepime HCl 50 ml @ 12.5 mls/hr Q8HR IV 03/14/25 14:00 Exam Vital Signs Vital Signs Date Time Temp Pulse Resp B/P (MAP) Pulse Ox O2 Delivery O2 Flow Rate FiO2 03/14/25 14:00 72 03/14/25 13:30 98.8 12 124/76 (92) 94 98.8 03/14/25 10:43 Room Air General Appearance: Alert, Oriented X3, Cooperative, mild distress HEENT: Atraumatic, PERRLA Respiratory: Clear to auscultation, Normal air movement Cardiovascular: Regular rate, Normal S1, Normal S2 Abdominal: Normal bowel sounds, Soft, Other (LLQ pain) Extremities: No clubbing, No cyanosis, No edema, Normal pulses Skin: No rashes, No breakdown, No significant lesion Neuro: Normal gait, Normal speech, Strength at 5/5 X4 ext, Normal tone Psych/Mental Status: Mental status NL, Mood NL Labs/Xrays Labs Test 03/14/25 13:10 03/14/25 11:33 03/14/25 09:55 Range/Units Lactic Acid Level 1.2 0.4-2.0 mmol/L White Blood Count 17.4 H 4.4-10.8 10^3/uL Red Blood Count 4.99 4.0-5.20 10^6/uL Hemoglobin 14.6 12.2-16.2 g/dL Hematocrit 42.5 36.0-46.0 % Mean Corpuscular Volume 85.1 80.0-100.0 fL Mean Corpuscular Hemoglobin 29.2 28.0-32.0 pg Mean Corpuscular Hemoglobin Concent 34.4 32.0-36.0 g/dL Red Cell Distribution Width 14.4 H 11.8-14.3 % Platelet Count 355 140-450 10^3/uL Mean Platelet Volume 6.9 6.9-10.8 fL Neutrophils (%) (Auto) 81.9 H 37.0-80.0 % Lymphocytes (%) (Auto) 11.0 10.0-50.0 % Monocytes (%) (Auto) 6.5 0.0-12.0 % Eosinophils (%) (Auto) 0.1 0.0-7.0 % Basophils (%) (Auto) 0.5 0.0-2.0 % Neutrophils # (Auto) 14.3 H 1.6-8.6 10 ^3/uL Lymphocytes # (Auto) 1.9 0.4-5.4 10 ^3/uL Monocytes # (Auto) 1.1 0-1.3 10 ^3/uL Eosinophils # (Auto) 0 0-0.8 10 ^3/uL Basophils # (Auto) 0.1 0-0.2 10 ^3/uL Nucleated Red Blood Cells 0.0 % Prothrombin Time 10.2 9.3-11.8 sec Prothrombin Time INR 0.96 0.9-1.15 Activated Partial Thromboplast Time 29.1 24.5-34.5 SEC Sodium Level 140 136-145 mmol/L Potassium Level 3.9 3.5-5.1 mmol/L Chloride Level 105 98-107 mmol/L Carbon Dioxide Level 24 20-31 mmol/L Anion Gap 11 5-15 Blood Urea Nitrogen 18 9-23 mg/dL Creatinine 0.96 0.550-1.02 mg/dL Glomerular Filtration Rate Calc 67 >90 mL/min BUN/Creatinine Ratio 18.8 10.0-20.0 Serum Glucose 101 74-106 mg/dL Calcium Level 10.9 H 8.7-10.4 mg/dL Urine Color Yellow Yellow Urine Clarity Turbid H Clear Urine pH 5.5 5.0-9.0 Urine Specific [place] 1.023 1.001-1.035 Urine Protein Trace H Negative Urine Ketones 1+ H Negative Urine Blood 1+ H Negative /uL Urine Nitrite Negative Negative Urine Bilirubin Negative Negative Urine Urobilinogen Normal Negative mg/dL Urine Leukocyte Esterase 3+ Negative /uL Urine RBC 2 0 - 4 /hpf Urine Microscopic WBC 20 H 0-5 /HPF Urine Squamous Epithelial Cells Few <5 /hpf Urine Calcium Oxalate Crystals Few None Seen Urine Amorphous Crystals Few None Seen /hpf Urine Bacteria None seen None Seen /hpf Urine Mucus Few None Seen Urine Glucose Normal Normal mg/dL Exam: CT CT AB PEL WO CON-NO ORAL OR IV Findings: Evaluation of solid organs is limited due to lack of intravenous contrast use. Lung Bases: No acute or significant lung base finding. Normal heart size. No pleural or pericardial effusion. Liver: The liver is normal in size. No focal lesions. Gallbladder and Biliary Tree: Unremarkable Spleen: Unremarkable Pancreas: The pancreas is grossly normal in appearance. Adrenal Glands: Unremarkable Kidneys: Kidneys are grossly normal without calculi or hydronephrosis. Bladder: Grossly unremarkable for degree of distention. Bowel: The stomach is grossly normal in appearance. Mild bowel wall thickening of the colon. Diverticulosis. Normal appendix is visualized in the right lower quadrant without findings of appendicitis. Ascites: Absent Lymphadenopathy: No mesenteric, retroperitoneal or periportal lymphadenopathy. Abdominal Wall and Mesentery: Unremarkable. Vasculature: The visualized abdominal aorta is normal in size and caliber. There is extensive atherosclerotic calcification of the aorta and its branches. Evaluation of abdominal and pelvic vessels is limited due to lack of intravenous contrast. Pelvic Organs: Unremarkable Musculoskeletal: No aggressive focal bony lesions, acute fractures or dislocation. IMPRESSION: Possible mild colitis. CHEST RADIOGRAPH FINDINGS: Lines and Tubes: None Lungs: No focal consolidation. Pleura: No effusion. No pneumothorax. Cardiomediastinal contours: Unremarkable Bones: No acute osseous abnormality. IMPRESSION: No acute cardiopulmonary disease. Assessment/Plan Assessment/Plan Assessment: Complicated UTI (urinary tract infection), Possible Colitis, Anxiety, Depression, Plan: Admit to Med-Surg, IV antibiotics, IV hydration, Clear liquid diet, Home medications reconciled, Plan discussed with: Patient My Orders Orders - KENTRELL BALLARD Procedure Category Date Status Time Admit ADMIT 03/14/25 Verified 16:08 Code Status CODE 03/14/25 Verified 16:08 Ondansetron Hcl PHA 03/14/25 Verified (Zofran) 16:15 Docusate Sodium PHA 03/14/25 Verified Capsule (Colace 16:15 Complete Blood Count LAB 03/15/25 Verified 04:00 Comprehensive LAB 03/15/25 Verified Metabolic Panel 04:00 Condition: Serious JENARO 03/14/25 Verified 16:08 Acetaminophen Tablet PHA 03/14/25 Verified (Tylenol Tablet) 16:15 Mirtazapine Tablet PHA 03/14/25 Verified (Remeron Tablet) 22:00 Sertraline Hcl PHA 03/15/25 Verified (Zoloft) 10:00 Date of Service: Mar 14, 2025 Billing Provider: KENTRELL BALLARD Common Visit Codes: [id number] INP/OBS CARE (MOD) KENTRELL BALLARD Mar 14, 2025 16:47
[2025-03-14] MEDS: HYDROcodone-ACET 5/325MG TAB PO PRN (19:41)
[2025-03-14 20:10] VITALS: PULSE 85; RESP 18; O2SAT 97
[2025-03-14] MEDS: MIRTAZAPINE 30 MG TAB PO SCH (20:57)
[2025-03-15 05:00] LABS: Hematocrit 38.9 % (36.0-46.0); Hemoglobin 13.5 g/dL (12.2-16.2); Mean Corpuscular Hemoglobin 29.2 pg (28.0-32.0); Mean Corpuscular Volume 84.3 fL (80.0-100.0); Nucleated Red Blood Cells % 0.0 %
[2025-03-15 05:18] LABS: Alanine Aminotransferase 22 U/L (7-40); Albumin 4.4 g/dL (3.2-4.8); Alkaline Phosphatase 97 U/L (46-116); Anion Gap 11 (5-15); BUN/Creatinine Ratio 19.0 (10.0-20.0); Bilirubin, Total 0.8 mg/dL (0.2-1.0); Blood Urea Nitrogen 15 mg/dL (9-23); Calcium 9.1 mg/dL (8.7-10.4); Carbon Dioxide 22 mmol/L (20-31); Glucose 83 mg/dL (74-106); Sodium 143 mmol/L (136-145); Total Protein 6.8 g/dL (5.7-8.2)
[2025-03-15 05:28] LABS: Chloride 110 mmol/L (98-107); Potassium 3.2 mmol/L (3.5-5.1)
[2025-03-15] MEDS: SERTRALINE HCL 50 MG TAB PO SCH (09:48)
[2025-03-15 11:51] VITALS: BP 142/79; PULSE 63; RESP 16; TEMP 98.2; O2SAT 96
[2025-03-15 12:47] VITALS: BP 142/79; PULSE 63; RESP 16; TEMP 98.2; O2SAT 96
[2025-03-15 17:00] VITALS: BP 136/89; PULSE 59; RESP 16; TEMP 97.5; O2SAT 96
--- NOTE | 2025-03-15 19:05 | DVHPN2 ---
Subjective Seen in bed and pain improved Reviewed: H&P, Labs Changes from previous H/P or p: No Changes Eyes: No Pain, No Vision change, No Conjunctivae inflammation, No Eyelid inflammation, No Other, No Redness ENT: No Ear pain, No Ear discharge, No Nose pain, No Nose discharge, No Nose congestion, No Mouth pain, No Mouth swelling, No Throat pain, No Throat swelling, No Other Cardiovascular: No Chest Pain, No Palpitations, No Orthopnea, No Paroxysmal Noc. Dyspnea, No Edema, No Lt Headedness, No Other Respiratory: No Cough, No Dry, No Shortness of breath, No SOB with excertion, No Wheezing, No Hemoptysis, No Pleuritic Pain, No Sputum, No Other Gastrointestinal: Nausea, Vomiting, Abdominal Pain, Diarrhea Genitourinary: No Dysuria, No Frequency, No Incontinence, No Hematuria, No Retention, No Other Musculoskeletal: No other, No neck pain, No shoulder pain, No arm pain, No back pain, No hand pain, No leg pain, No foot pain Skin: No Rash, No Lesions, No Jaundice, No Bruising, No Other Objective Vitals Vital Signs Date Time Temp Pulse Resp B/P (MAP) Pulse Ox O2 Delivery O2 Flow Rate FiO2 03/15/25 17:00 97.5 59 16 136/89 (105) 96 97.5 03/15/25 11:51 Room Air* 0 21 Intake/Output Intake and Output 03/15/25 07:00 Intake Total 1825 ml Balance 1825 ml IV Total 1825 ml General Appearance: Alert, Oriented X3 Lungs: Clear to auscultation Cardiovascular: Regular rate, Normal S1, Normal S2 Abdomen: Normal bowel sounds Medications Current Medications Medications Dose Ordered Sig/Adina Route Start Time Stop Time Status Last Admin Dose Admin Cefepime HCl 50 ml @ 12.5 mls/hr Q8HR IV 03/14/25 14:00 03/15/25 05:31 12.5 MLS/HR Ondansetron HCl 4 mg Q4HP PRN IV 03/14/25 16:15 Docusate Sodium 100 mg BIDPRN PRN PO 03/14/25 16:15 Acetaminophen 650 mg Q6HP PRN PO 03/14/25 16:15 Mirtazapine 45 mg HS PO 03/14/25 22:00 03/14/25 20:57 45 MG Sertraline HCl 150 mg DAILY PO 03/15/25 10:00 03/15/25 09:48 150 MG Metronidazole 100 ml @ 100 mls/hr Q8HR IV 03/14/25 22:00 03/15/25 14:54 100 MLS/HR Acetaminophen/ Hydrocodone Bitart 1 tab Q6HPRN PRN PO 03/14/25 16:30 03/15/25 14:55 1 TAB Laboratory Results Laboratory Tests 03/15/25 04:10 Chemistry Test 03/15/25 04:10 Albumin 4.4 g/dL (3.2-4.8) Calcium Level 9.1 mg/dL (8.7-10.4) Total Protein 6.8 g/dL (5.7-8.2) LFT Test 03/15/25 04:10 Alanine Aminotransferase (ALT) 22 U/L (7-40) Alkaline Phosphatase 97 U/L (46-116) Aspartate Amino Transferase (AST) 28 U/L (13-40) Total Bilirubin 0.8 mg/dL (0.2-1.0) Urinalysis Test 03/14/25 09:55 Urine Color Yellow (Yellow) Urine Clarity Turbid (Clear) H Urine pH 5.5 (5.0-9.0) Urine Specific [place] 1.023 (1.001-1.035) Urine Protein Trace (Negative) H Urine Ketones 1+ (Negative) H Urine Blood 1+ /uL (Negative) H Urine Nitrite Negative (Negative) Urine Bilirubin Negative (Negative) Urine Urobilinogen Normal mg/dL (Negative) Urine Leukocyte Esterase 3+ /uL (Negative) Urine RBC 2 /hpf (0 - 4) Urine Microscopic WBC 20 /HPF (0-5) H Urine Squamous Epithelial Cells Few /hpf (<5) Urine Calcium Oxalate Crystals Few (None Seen) Urine Amorphous Crystals Few /hpf (None Seen) Urine Bacteria None seen /hpf (None Seen) Urine Mucus Few (None Seen) Urine Glucose Normal mg/dL (Normal) Microbiology Microbiology Date/Time Source Procedure Growth Status 03/14/25 13:10 Blood Blood Culture - Preliminary NO GROWTH AFTER 24 HOURS OF INCUBATION. Resulted Assessment/Plan Assessment/Plan Complicated UTI (urinary tract infection), Possible Colitis, Anxiety, Depression, Sepsis due to UTI Hypokalemia Continue IV abx with cefepime and flagyl IV K rider BMP tomorrow Start advancing diet Plan discussed with: Patient Date of Service: Mar 15, 2025 Billing Provider: RONN EM MD Common Visit Codes: [id number] INP/OBS CARE(HIGH) RONN EM MD Mar 15, 2025 19:05
[2025-03-15] MEDS: POTASSIUM CHL 20MEQ/100ML 100 ML IV SCH (19:47)
[2025-03-15 20:00] VITALS: PULSE 61; RESP 16; O2SAT 95
[2025-03-15 21:00] VITALS: BP 118/71; PULSE 61; RESP 17; TEMP 98.4; O2SAT 95
[2025-03-16 01:00] VITALS: BP 116/61; PULSE 70; RESP 17; TEMP 98.2; O2SAT 96
[2025-03-16 05:00] VITALS: BP 138/71; PULSE 58; RESP 17; TEMP 98.1; O2SAT 95
[2025-03-16 09:00] VITALS: BP 129/79; PULSE 70; RESP 16; TEMP 98.3; O2SAT 93
[2025-03-16 12:54] LABS: Hematocrit 41.0 % (36.0-46.0); Hemoglobin 14.0 g/dL (12.2-16.2); Mean Corpuscular Hemoglobin 29.2 pg (28.0-32.0); Mean Corpuscular Volume 85.5 fL (80.0-100.0); Nucleated Red Blood Cells % 0.0 %
[2025-03-16 13:00] VITALS: BP 141/87; PULSE 65; RESP 16; TEMP 98.5; O2SAT 94
[2025-03-16 13:03] LABS: Sodium 139 mmol/L (136-145)
[2025-03-16 13:04] LABS: Anion Gap 11 (5-15); Calcium 9.8 mg/dL (8.7-10.4); Carbon Dioxide 21 mmol/L (20-31); Chloride 107 mmol/L (98-107); Potassium 3.4 mmol/L (3.5-5.1)
[2025-03-16 13:09] LABS: BUN/Creatinine Ratio 13.5 (10.0-20.0); Blood Urea Nitrogen 10 mg/dL (9-23); Glucose 88 mg/dL (74-106)
[2025-03-16] MEDS ORDERED: AUG875T PO (14:29)
[2025-03-16 15:41] VITALS: BP 129/79; PULSE 70; RESP 16; TEMP 36.9; O2SAT 93
[2025-03-16 16:36] VITALS: BP 137/78; PULSE 69; RESP 16; TEMP 98.3; O2SAT 96
== END 2025-03-16 16:33 | disposition home or self-care (01) | DRG 720 ==
LOC: ER 09:40 → OVERFLOW 16:08 → EAST 03-15 11:06
PROVIDERS: ADMIT Hospitalist; ATTEND Hospitalist
DX: A41.9 Sepsis, unspecified organism (principal); A04.9 Bacterial intestinal infection, unspecified; E87.6 Hypokalemia; F32.A Depression, unspecified; F41.9 Anxiety disorder, unspecified; N80.9 Endometriosis, unspecified; F17.210 Nicotine dependence, cigarettes, uncomplicated; N39.0 Urinary tract infection, site not specified; Z90.710 Acquired absence of both cervix and uterus
CPT/HCPCS: 36415; 71045; 74176; 80048; 80053; 81001; 83605; 85025; 85610; 85730; 87040; 96365; 99291; G0378; J3480; J3490

== ENCOUNTER → 2025-06-13 | Day surgery (SDC) | payer MEDICAID ==
[2025-06-10 12:07] LABS: Hematocrit 43.2 % (36.0-46.0); Hemoglobin 14.5 g/dL (12.2-16.2); Mean Corpuscular Hemoglobin 29.0 pg (28.0-32.0); Mean Corpuscular Volume 86.5 fL (80.0-100.0); Nucleated Red Blood Cells % 0.0 %
[2025-06-10 12:27] LABS: INR 0.92 (0.9-1.15); Partial Thromboplastin Time 27.2 SEC (24.5-34.5); Prothrombin Time 9.8 sec (9.3-11.8)
[2025-06-10 12:44] LABS: Alanine Aminotransferase 20 U/L (7-40); Albumin 4.6 g/dL (3.2-4.8); Potassium 4.2 mmol/L (3.5-5.1); Sodium 142 mmol/L (136-145)
[2025-06-10 12:53] LABS: Carbon Dioxide 26 mmol/L (20-31)
[2025-06-10 12:54] LABS: Calcium 9.7 mg/dL (8.7-10.4)
[2025-06-10 12:58] LABS: Glucose 84 mg/dL (74-106)
[2025-06-10 12:59] LABS: BUN/Creatinine Ratio 10.5 (10.0-20.0); Blood Urea Nitrogen 10 mg/dL (9-23); Total Protein 7.4 g/dL (5.7-8.2)
[2025-06-10 13:01] LABS: Bilirubin, Total 0.3 mg/dL (0.2-1.0)
[2025-06-10 13:33] LABS: Alkaline Phosphatase 119 U/L (46-116); Anion Gap 7 (5-15); Chloride 109 mmol/L (98-107)
[~2025-06-13] VITALS: Ht 152.4 cm; Wt 56.7 kg
[~2025-06-13] MED LIST changes: -LEVO500T91 PO; -METR-344 PO; +SERT-160 PO; -SERT150C PO; +SODIUM CHLORIDE LOCK 10 ML ONE
[2025-06-13 09:25] VITALS: TEMP 98.4
[2025-06-13 10:12] VITALS: PULSE 95; RESP 15; O2SAT 98
[2025-06-13] MEDS: LIDOCAINE VISCOUS 2% 15ML UD ONE (10:15)
[2025-06-13] MEDS: diphenhdrAMINE HCL 50 MG/1 ML VL ONE (10:16)
[2025-06-13] MEDS: fentaNYL CITRATE 100 MCG/2 ML VL ONE (10:16)
[2025-06-13] MEDS: MIDAZOLAM HCL 5 MG/ML-1ML VIAL ONE (10:16)
--- NOTE | 2025-06-13 10:51 | DVHOP2 ---
Operative Report DATE OF OPERATION: 06/13/25 PROCEDURE: Upper Endoscopy with biopsy. PREOPERATIVE INDICATION: The patient is a 59 -year-old female undergoing endoscopy for dyspepsia POSTOPERATIVE DIAGNOSES: 1. 2 cm sliding-type hiatal hernia with slightly irregular squamocolumnar junction minimal grade a erosive esophagitis 2. Mild antral gastritis otherwise normal examination up to the 2nd and 3rd part of the duodenum PROCEDURE PERFORMED BY: Cherie Stafford GI NURSE: María SCOPE: Olympus videoendoscope. ASA CLASS: 2 PREOPERATIVE MEDICATIONS: Versed 5 mg, Fentanyl 100 mcg, Benadryl 50 mg I administered moderate sedation throughout this _10_ minutes procedure. An i ndependent trained observer pushed medications at my direction, and monitored the patient's level of consciousness and physiological status throughout. PROCEDURE IN DETAIL: After obtaining an informed consent, the patient was placed on left lateral decubitus position. The patient was then sedated with the above medications. A bite block was placed between her teeth. The endoscope was then passed through the oropharynx, into the esophagus, and through the stomach and pylorus up to the second and third part of the duodenum. The endoscope was then withdrawn. The 2nd and 3rd part of the duodenal and the duodenal bulb were normal. Duodenal biopsies were obtained The pre-pyloric area antrum and distal body showed mild gastritis with some hyperemia erythema. Gastric biopsies were obtained On retroflexion the fundus cardia and angularis were normal. The endoscope was then withdrawn into the distal esophagus Patient had a 2 cm sliding-type hiatal hernia with irregular squamocolumnar junction grade a erosive esophagitis. GE junction biopsies were obtained The remaining distal and proximal esophagus and oropharynx were unremarkable The patient tolerated the procedure well without difficulty. COMPLICATIONS : None SPECIMENS: Duodenal biopsies Gastric biopsies GE junction biopsies DISPOSITION: Stable D/C to home PLAN: 1. Await for biopsy result 2. Will place pt on Protonix 40 mg p.o. daily 3. Resume GI soft diet advance as tolerated 4. Avoid aspirin NSAIDs smoking alcohol 5. Outpatient follow up with me in 4-6 weeks to review results and discuss further management CHERIE STAFFORD MD Jun 13, 2025 10:51
[2025-06-13 11:00] VITALS: BP 131/85; PULSE 66; RESP 17; O2SAT 95
== END | disposition home or self-care (01) ==
LOC: GI 09:05
PROVIDERS: ATTEND Internal Medicine Gastroenterology
DX: R10.13 Epigastric pain (principal); K29.50 Unspecified chronic gastritis without bleeding; K21.00 Gastro-esophageal reflux disease with esophagitis, without bleeding; Z86.73 Personal history of transient ischemic attack (TIA), and cerebral infarction without residual deficits; I10 Essential (primary) hypertension; Z90.710 Acquired absence of both cervix and uterus; Z79.899 Other long term (current) drug therapy
CPT/HCPCS: 36415; 43239; 80053; 85025; 85610; 85730; 88305; 88342; J1200; J2250; J3010; J7030

== ENCOUNTER 2025-07-03 10:50 | Emergency (ER) | payer MEDICAID ==
[~2025-07-03] VITALS: Ht 152.4 cm; Wt 58.1 kg
[~2025-07-03 10:50] MED LIST changes: -SODIUM CHLORIDE LOCK 10 ML ONE
--- NOTE | 2025-07-03 11:31 | ED.PDOC ---
GI ASSESSMENT HPI Comments 59 y.o female presents to the ED for a chief complaint of diffused abdominal pain associated with diarrhea and one episode on non bilious non bloody emesis that started this morning at 5am. Patient describes pain as sharp, constant, rates it a 8/10 on the pain scale. Patient reports similar pain in the past, was scheduled to undergo an EGD however canceled procedure appointment due to excessive pain the day of. She denies any active nausea or vomiting at this time, fever, chills, rectal bleeding. Chief Complaint: Abdominal Pain Time Seen by MD: 11:16 Primary Care Provider: Jeffy Parks Notes: Nurses Notes, Medications, Allergies Allergies: Coded Allergies: NO KNOWN ALLERGIES (Unverified , 07/01/22) Home Meds Reported Medications Sertraline Hcl (Sertraline Hcl) 100 Mg Tab, 200 MG PO QAM, TAB 06/10/25 Mirtazapine (Mirtazapine Oral Disintegrating Tablet) 45 Mg Tab, 1 TAB PO 07/30/23 Information Source: Patient Mode of Arrival: Ambulatory Timing: Came on: Gradually Duration: Since onset Quality: Sharp Vomitus: Soft (one episode ) Stool: Normal Severity: Moderate Recent: None Recent Hx of: None Pain Location: Epigastric Modifying Factors: Nothing Associated sign and symptoms: Vomiting, Diarrhea, Abdominal Pain Past Medical History PAST MEDICAL HISTORY: Anxiety, Depression, UTI'S Surgical History: Hysterectomy DESIGN COORDINATOR History: Endometriosis Family History Family History: Reviewed,noncontributory to illness, Unknown Social History Smoker: Cigarettes Alcohol: Denies ETOH Use Drugs: Marijuana Lives In: Home Constitutional: denies: chills, diaphoresis, fatigue, fever, malaise, sweats, weakness, others EENTM: denies: blurred vision, double vision, ear bleeding, ear discharge, ear drainage, ear pain, ear ringing, eye pain, eye redness, hearing loss, mouth pain, mouth swelling, nasal discharge, nose bleeding, nose congestion, nose pain, photophobia, tearing, throat pain, throat swelling, voice changes, others Respiratory: denies: cough, hemoptysis, orthopnea, SOB at rest, shortness of breath, SOB with excertion, stridor, wheezing, others Cardiovascular: denies: chest pain, dizzy spells, diaphoresis, Dyspnea on exertion, edema, irregular heart beat, left arm pain, lightheadedness, palpitations, PND, syncope, others Gastrointestinal: reports: abdominal pain; denies: abdomen distended, blood streaked bowels, constipated, diarrhea, dysphagia, difficulty swallowing, hematemesis, melena, nausea, poor appetite, poor fluid intake, rectal bleeding, rectal pain, vomiting, others Genitourinary: denies: abnormal vagina bleeding, burning, dyspareunia, dysuria, flank pain, frequency, hematuria, incontinence, pain, , vagina discharge, urgency, others Neurological: denies: dizziness, fainting, headache, left sided numbness, left sided weakness, numbness, paresthesia, pre-existing deficit, right sided numbne ss, right sided weakness, seizure, speech problems, tingling, tremors, weakness, others Musculoskeletal: denies: back pain, gout, joint pain, joint swelling, muscle pain, muscle stiffness, neck pain, others Integumetry: denies: bruises, change in color, change in hair/nails, dryness, laceration, lesions, lumps, rash, wounds, others Allergic/Immunocompromised: denies: Difficulty Healing, Frequent Infections, Hives, Itching, others Hematologic/Lymphatic: denies: anemia, blood clots, easy bleeding, easy bruising, swollen glands, others Endocrine: denies: excessive hunger, excessive sweating, excessive thirst, excessive urination, flushing, intolerance to cold, intolerance to heat, unexplained weight gain, unexplained weight loss, others Psychiatric: denies: anxiety, bipolar disorder, depression, hopeless, panic disorder, schizophrenia, sleepless, suicidal, others All Other Systems: Reviewed and Negative Physical Exam General Appearance: Moderate Distress HEENT: Normal ENT Inspection, Pharynx Normal, TMs Normal Neck: Full Range of Motion, Non-Tender, Normal, Normal Inspection Respiratory: Chest Non-Tender, Lungs Clear, No Accessory Muscle Use, No Respiratory Distress, Normal Breath Sounds Cardiovascular: No Edema, No JVD, No Murmur, No Gallop, Normal Peripheral Pulses, Regular Rate/Rhythm Breast Exam: Deferred Gastrointestinal: No Organomegaly, Non Tender, No Pulsatile Mass, Normal Bowel Sounds, Soft Genitalia: Deferred Pelvic: Deferred Rectal: Deferred Extremities: No calf tenderness, Normal capillary refill, Normal inspection, Normal range of motion, Non-tender, No pedal edema Musculoskeletal : Apperance: Normal Neurologic: Alert, email marketing assistant II-XII nml as Tested, No Motor Deficits, Normal Affect, Normal Mood, No Sensory Deficits Cerebellar Function: Normal Reflexes: Normal Skin: Dry, Normal Color, Warm Peripheral Pulses: 3+ Radial (R), 3+ Radial (L) Lymphatic: No Adenopathy Was a procedure done? Was a procedure done?: No GI differential Dx Differential Diagnosis: Constipation, Diverticular disease, Esophagitis, Gastritis/PUD, Gastroenteritis, Stress Ulcer X-Ray, Labs, Meds, VS Vital Signs Date Time Temp Pulse Resp B/P (MAP) Pulse Ox O2 Delivery O2 Flow Rate FiO2 07/03/25 13:23 76 18 96 Room Air 07/03/25 13:23 80 18 139/93 (108) 97 07/03/25 10:53 97.1 84 16 109/82 96 97.1 Lab Test 07/03/25 11:57 07/03/25 11:26 Range/Units White Blood Count 9.0 4.4-10.8 10^3/uL Red Blood Count 4.95 4.0-5.20 10^6/uL Hemoglobin 14.5 12.2-16.2 g/dL Hematocrit 42.2 36.0-46.0 % Mean Corpuscular Volume 85.4 80.0-100.0 fL Mean Corpuscular Hemoglobin 29.4 28.0-32.0 pg Mean Corpuscular Hemoglobin Concent 34.4 32.0-36.0 g/dL Red Cell Distribution Width 14.1 11.8-14.3 % Platelet Count 326 140-450 10^3/uL Mean Platelet Volume 7.0 6.9-10.8 fL Neutrophils (%) (Auto) 76.0 37.0-80.0 % Lymphocytes (%) (Auto) 17.9 10.0-50.0 % Monocytes (%) (Auto) 5.3 0.0-12.0 % Eosinophils (%) (Auto) 0.5 0.0-7.0 % Basophils (%) (Auto) 0.3 0.0-2.0 % Neutrophils # (Auto) 6.8 1.6-8.6 10 ^3/uL Lymphocytes # (Auto) 1.6 0.4-5.4 10 ^3/uL Monocytes # (Auto) 0.5 0-1.3 10 ^3/uL Eosinophils # (Auto) 0 0-0.8 10 ^3/uL Basophils # (Auto) 0 0-0.2 10 ^3/uL Nucleated Red Blood Cells 0.1 % Sodium Level 147 H 136-145 mmol/L Potassium Level 3.8 3.5-5.1 mmol/L Chloride Level 113 H 98-107 mmol/L Carbon Dioxide Level 27 20-31 mmol/L Anion Gap 7 5-15 Blood Urea Nitrogen 11 9-23 mg/dL Creatinine 0.89 0.550-1.02 mg/dL Glomerular Filtration Rate Calc 74 >90 mL/min BUN/Creatinine Ratio 12.4 10.0-20.0 Serum Glucose 109 H 74-106 mg/dL Calcium Level 10.3 8.7-10.4 mg/dL Urine Color Light-yellow Yellow Urine Clarity Clear Clear Urine pH 7.0 5.0-9.0 Urine Specific [place] 1.020 1.001-1.035 Urine Protein Negative Negative Urine Ketones Negative Negative Urine Blood Trace H Negative /uL Urine Nitrite Negative Negative Urine Bilirubin Negative Negative Urine Urobilinogen Normal Negative mg/dL Urine Leukocyte Esterase Negative Negative /uL Urine RBC 5 0 - 4 /hpf Urine Microscopic WBC 1 0-5 /HPF Urine Squamous Epithelial Cells Few <5 /hpf Urine Bacteria None seen None Seen /hpf Urine Mucus Few None Seen Urine Glucose Normal Normal mg/dL Patient alert. Came in for abdominal discomfort. Abdomen is soft nontender. Vitals stable. Urinalysis within normal limits. WBC within normal limits. Hemoglobin within normal limits. No sign of any distress. No acute process. No leg swelling. No chest pain. No shortness a breath. Explained to the patient. Was told to follow up with her primary care physician. Was told to come back if there is any problem. Time of 1ST Reevaluation: 11:26 Reevaluation 1ST: Unchanged Patient Education/Counseling: Diagnosis, Treatment, Prognosis Family Education/Counseling: No Family Present SEPSIS Sepsis Screen Date sepsis recognized/suspect: Jul 03, 2025 Time Sepsis recognized/suspect: 1054 Recent Procedure: No On Antibiotic Therapy: No Respiratory Rate >20: No Heart Rate >90: No Temp<36 C (96.8 F) or >38.3 C: No SBP <90 or MAP <65 mmHG: No New Acute Mental Status Change: No Is the patient on CPAP, BIPAP,: No Vital Signs Date Time Temp Pulse Resp B/P (MAP) Pulse Ox O2 Delivery O2 Flow Rate FiO2 07/03/25 13:23 76 18 96 Room Air 07/03/25 13:23 80 18 139/93 (108) 97 07/03/25 10:53 97.1 84 16 109/82 96 97.1 Laboratory Tests Test 07/03/25 11:57 White Blood Count 9.0 10^3/uL (4.4-10.8) Departure 1 Departure Time of Disposition: 14:32 Impression: Primary Impression: Gastritis Qualified Codes: K29.30 - Chronic superficial gastritis without bleeding Disposition: 01 HOME / SELF CARE / HOMELESS Condition: Good Discharged With: Self Critical Care Note Critical Care Time?: No Stability Stability form required: No I personally scribed for DESTIN CUELLO MD ([email or web address]) on 07/03/25 at 11:31. Electronically submitted by Sydnie Pham ([facility]). DESTIN CUELLO MD Jul 03, 2025 11:31
[2025-07-03 12:30] LABS: Hematocrit 42.2 % (36.0-46.0); Hemoglobin 14.5 g/dL (12.2-16.2); Mean Corpuscular Hemoglobin 29.4 pg (28.0-32.0); Mean Corpuscular Volume 85.4 fL (80.0-100.0); Nucleated Red Blood Cells % 0.1 %
[2025-07-03 12:43] LABS: Anion Gap 7 (5-15); Carbon Dioxide 27 mmol/L (20-31); Potassium 3.8 mmol/L (3.5-5.1)
[2025-07-03 12:44] LABS: Calcium 10.3 mg/dL (8.7-10.4)
[2025-07-03 12:45] LABS: Chloride 113 mmol/L (98-107); Sodium 147 mmol/L (136-145)
[2025-07-03 12:49] LABS: BUN/Creatinine Ratio 12.4 (10.0-20.0); Blood Urea Nitrogen 11 mg/dL (9-23)
[2025-07-03 12:51] LABS: Glucose 109 mg/dL (74-106)
[2025-07-03 14:00] LABS: Urine Protein, UAD Negative (Negative)
[2025-07-03 14:30] VITALS: BP 143/90; PULSE 83; RESP 16; TEMP 98.1; O2SAT 96
== END 2025-07-03 14:53 | disposition home or self-care (01) ==
LOC: ER 10:50
DX: K29.70 Gastritis, unspecified, without bleeding (principal); F41.9 Anxiety disorder, unspecified; F32.A Depression, unspecified; F17.210 Nicotine dependence, cigarettes, uncomplicated; Z87.440 Personal history of urinary (tract) infections; Z90.710 Acquired absence of both cervix and uterus
CPT/HCPCS: 36415; 80048; 81001; 85025